=== PATIENT | male | born 1965 | race Caucasian/White ===

== ENCOUNTER → 2017-05-10 | Outpatient (CLI) | payer MEDICARE, OTHER ==
[~2017-05-10] MED LIST: AMLO5 PO; ASPI81CH PO; Bupropion Xl150 MG PO; COMPAZINE10 MG PO; FISH OIL 1,2001 EACH PO; FURO40 PO; GLYXAMBI 10 MG1 EACH PO; Hair, Skin & N1 EACH PO; INSU100I6; INSULANPEN; INSULANPEN SC; LISI20 PO; Omeprazole20 M1; POTCHL10ER PO; Prozac20 MG PO; Roxicodone5 MG PO; Vitamin D2000 UNIT PO; Zofran Odt4 MG SL
[2017-05-10 18:34] LABS: Protein, Urine Quantitative 218.6 mg/dL (0.0-11.9)
== END | disposition home or self-care (01) ==
LOC: LAB 14:14
PROVIDERS: Internal Medicine Nephrology
DX: N18.3 Chronic kidney disease, stage 3 (moderate) (principal); D63.1 Anemia in chronic kidney disease; N25.81 Secondary hyperparathyroidism of renal origin; E55.9 Vitamin D deficiency, unspecified; E78.00 Pure hypercholesterolemia, unspecified; D51.8 Other vitamin B12 deficiency anemias; D52.8 Other folate deficiency anemias; D50.9 Iron deficiency anemia, unspecified; R76.9 Abnormal immunological finding in serum, unspecified; R94.5 Abnormal results of liver function studies; R94.6 Abnormal results of thyroid function studies
CPT/HCPCS: 81050; 82043; 84156

== ENCOUNTER → 2017-07-28 | Outpatient (CLI) | payer MEDICARE, OTHER ==
[2017-07-28 15:32] LABS: Protein, Urine Quantitative 126.8 mg/dL (0.0-11.9)
[2017-07-28 15:34] LABS: Creatinine, Urine Random 52.1 mg/dL (27.00-270.00)
== END ==
LOC: LAB 14:39 → LAB SHORT 14:39
PROVIDERS: Internal Medicine Nephrology
DX: N18.3 Chronic kidney disease, stage 3 (moderate) (principal); D63.1 Anemia in chronic kidney disease; N25.81 Secondary hyperparathyroidism of renal origin; E55.9 Vitamin D deficiency, unspecified; E78.00 Pure hypercholesterolemia, unspecified
CPT/HCPCS: 81050; 82043; 82570; 84156

== ENCOUNTER 2017-08-14 13:49 | Emergency (ER) | payer MEDICARE, OTHER ==
[~2017-08-14] VITALS: Ht 177.8 cm; Wt 117.0 kg
[2017-08-14 14:52] LABS: BASOPHILS ABSOLUTE AUTO 0.03 K/mm3 (0.00-0.23); BASOPHILS PERCENT AUTO 0 % (0-2); EOSINOPHILS ABSOLUTE AUTO 0.01 K/mm3 (0.00-0.68); EOSINOPHILS PERCENT AUTO 0 % (0-6); Hematocrit 37.6 % (37.0-53.0); Hemoglobin 12.8 g/dL (13.5-17.5); IMMATURE GRAN ABSOLUTE AUTO 0.03 K/mm3 (0.00-0.10); IMMATURE GRAN PERCENT AUTO 0 % (0-1); LYMPHOCYTES ABSOLUTE AUTO 0.59 K/mm3 (0.84-5.20); LYMPHOCYTES PERCENT AUTO 6 % (21-46); MONOCYTES ABSOLUTE AUTO 0.92 K/mm3 (0.16-1.47); MONOCYTES PERCENT AUTO 9 % (4-13); Mean Corpuscular HGB 29.8 pg (26.0-34.0); Mean Corpuscular Volume 87 fL (80-100); Mean Platelet Volume 11.3 fL (9.1-12.4); NEUTROPHILS PERCENT AUTO 84 % (41-73); Platelet Count 105 K/mm3 (150-400); RDW Coefficient Variation 13.3 % (11.7-14.2); RDW Standard Deviation 42.7 fL (35.1-46.3); White Blood Cell Count 9.98 K/mm3 (4.00-11.30)
[2017-08-14 15:05] LABS: Albumin/Globulin Ratio 0.8 (0.8-1.8); Bilirubin, Total 6.6 mg/dL (0.1-1.0); Bun/Creatinine Ratio 15.5 (12.0-20.0); Calcium, Blood 9.3 mg/dL (8.5-10.1); Creatinine, Blood 2.13 mg/dL (0.60-1.20); Globulin, Blood 3.7 g/dL (2.2-4.0); Potassium, Blood 4.8 mmol/L (3.5-5.5); Total Protein, Blood 6.7 g/dL (6.4-8.2)
[2017-08-14 15:21] LABS: International Normalized Ratio 1.35; Prothrombin Time Results 13.7 Sec (9.7-11.5)
[2017-08-14 15:51] LABS: Source, Urine Clean Catch
[2017-08-14 15:54] LABS: Appearance, Urine Clear (Clear); Blood, Urine 1+ (Neg); Color, Urine Yellow (P-Yellow); Glucose Qualitative, Urine 4+ (Neg); Ketones, Urine Neg (Neg); Leukocyte Esterase, Urine Neg (Neg); Nitrite, Urine Neg (Neg); Protein, Urine 3+ (Neg); Urobilinogen, Urine 1+ (Normal)
[2017-08-14 16:19] LABS: Bilirubin, Urine 1+ (Neg)
[2017-08-14 16:20] LABS: Bacteria Rare /hpf; Squamous Epithelial Cells Rare /hpf (Few); White Blood Cells, Urine 0-2 /hpf (0-5)
[2017-08-14] MEDS ORDERED: Bupropion Xl150 MG PO (19:26)
[2017-08-14] MEDS ORDERED: INSU100I6 (19:26)
[2017-08-14] MEDS ORDERED: INSULANPEN (19:26)
[2017-08-14] MEDS ORDERED: LISI20 PO (19:26)
== END 2017-08-14 19:29 | disposition short-term general hospital (02) ==
LOC: ER 13:49
PROVIDERS: Emergency Medicine; Physician Assistant
DX: A41.9 Sepsis, unspecified organism (principal); K83.1 Obstruction of bile duct; E11.65 Type 2 diabetes mellitus with hyperglycemia; R79.89 Other specified abnormal findings of blood chemistry
CPT/HCPCS: 36415; 74176; 76705; 80053; 81001; 83605; 83690; 85025; 85610; 93005; 93010; 96361; 96365; 96375; 96376; 99285; J2405; J2543; J3010; J7030

== ENCOUNTER 2017-10-17 08:02 | Day surgery (SDC) | payer MEDICARE, OTHER ==
[~2017-10-17 08:02] MED LIST changes: -AMLO5 PO; -ASPI81CH PO; -COMPAZINE10 MG PO; -FISH OIL 1,2001 EACH PO; -FURO40 PO; -GLYXAMBI 10 MG1 EACH PO; -Hair, Skin & N1 EACH PO; -INSULANPEN SC; -Omeprazole20 M1; -POTCHL10ER PO; -Prozac20 MG PO; -Roxicodone5 MG PO; -Vitamin D2000 UNIT PO; -Zofran Odt4 MG SL
[2017-10-17 15:26] LABS: Performing Lab SYMBIODX; Test Name KIDNEY BX
== END 2017-10-17 22:40 | disposition home or self-care (01) ==
LOC: CT 08:02 → MEDS 10:36 → CT 22:40
PROVIDERS: Internal Medicine Nephrology
PROC: 0TB03ZX Excision of Right Kidney, Percutaneous Approach, Diagnostic (ICD-10-PCS; principal; 2017-10-17)
PROC: BT21ZZZ Computerized Tomography (CT Scan) of Right Kidney (ICD-10-PCS; principal; 2017-10-17)
DX: R80.9 Proteinuria, unspecified (principal); I12.9 Hypertensive chronic kidney disease with stage 1 through stage 4 chronic kidney disease, or unspecified chronic kidney disease; E11.22 Type 2 diabetes mellitus with diabetic chronic kidney disease; N18.3 Chronic kidney disease, stage 3 (moderate)
CPT/HCPCS: 50200; 77012; 82947; 88329

== ENCOUNTER → 2018-10-13 | Outpatient (CLI) | payer MEDICARE, OTHER ==
[~2018-10-13] MED LIST changes: +AMLO5 PO; +ASPI81CH PO; +COMPAZINE10 MG PO; +FISH OIL 1,2001 EACH PO; +FURO40 PO; +GLYXAMBI 10 MG1 EACH PO; +Hair, Skin & N1 EACH PO; +INSULANPEN SC; +Omeprazole20 M1; +POTCHL10ER PO; +Prozac20 MG PO; +Roxicodone5 MG PO; +Vitamin D2000 UNIT PO; +Zofran Odt4 MG SL
[2018-10-13 15:23] LABS: Microalb/Creat Ratio UR, Rand 2076.19 mg/g (0.000-30.000)
== END | disposition home or self-care (01) ==
LOC: LAB 07:26 → LAB SHORT 07:26 → LAB FUT 11-11 13:00
PROVIDERS: Internal Medicine Endocrinology, Diabetes & Metabolism
DX: E11.65 Type 2 diabetes mellitus with hyperglycemia (principal)
CPT/HCPCS: 82043; 82570

== ENCOUNTER 2019-11-04 18:04 | Emergency (ER) | payer MEDICARE, OTHER ==
[~2019-11-04] VITALS: Ht 177.8 cm; Wt 99.8 kg
== END 2019-11-04 18:38 | disposition home or self-care (01) ==
LOC: ER 18:04
DX: M79.631 Pain in right forearm (principal); E11.22 Type 2 diabetes mellitus with diabetic chronic kidney disease; I12.9 Hypertensive chronic kidney disease with stage 1 through stage 4 chronic kidney disease, or unspecified chronic kidney disease; N18.9 Chronic kidney disease, unspecified; F41.9 Anxiety disorder, unspecified; Z79.4 Long term (current) use of insulin; Z79.82 Long term (current) use of aspirin; Z79.899 Other long term (current) drug therapy
CPT/HCPCS: 29105; 99282-25

== ENCOUNTER → 2023-04-07 | Outpatient (CLI) | payer MEDICARE ==
[2023-04-07 19:59] LABS: Protein, Urine Random 83.5 mg/dL (0.0-11.9); Protein/Creat Ratio, Ur Random 1.6
== END ==
LOC: LAB 06:59 → LAB SHORT 06:59
PROVIDERS: Hospitalist
DX: E87.5 Hyperkalemia (principal); I12.9 Hypertensive chronic kidney disease with stage 1 through stage 4 chronic kidney disease, or unspecified chronic kidney disease
CPT/HCPCS: 82570; 84156

== ENCOUNTER 2023-10-17 15:09 | Emergency (ER) | payer MEDICARE, OTHER ==
[~2023-10-17] VITALS: Ht 177.8 cm; Wt 77.1 kg
[~2023-10-17 15:09] MED LIST changes: +ACYC400 PO; +ALLO100 PO; +ASPIR 8181 M1 PO; +BUPROPION XL450 MG PO; +CYCL25 PO; +FLUDROCORTISON0.1 M1 PO; +GABA400 PO; +GEMF600 PO; +INSULANI; +MAGNESIUM OXID500 MG PO; +MIDO5 PO; +MYCO250 PO; +NOVOLOG FL100 UNIT/3 SC; +OMEP20ER PO; +PERTZYE DR 24,1 EACH PO; +PRED5 PO; +PREVYMIS PO; +Prozac40 MG PO; +SULTRIDS PO; +[UNRECOGNIZED DRUG - CODE]
[2023-10-17] MEDS ORDERED: Lactated Ringer's 1,000 ML IV SCH (16:10)
[2023-10-17 16:21] LABS: Hematocrit 23.2 % (37.0-53.0); Hemoglobin 7.9 g/dL (13.5-17.5); Mean Corpuscular HGB 30.3 pg (26.0-34.0); Mean Corpuscular HGB Conc 34.1 g/dL (31.5-36.5); Mean Corpuscular Volume 89 fL (80-100); Mean Platelet Volume 9.7 fL (9.1-12.4); RDW Coefficient Variation 17.2 % (11.7-14.2); RDW Standard Deviation 49.7 fL (35.1-46.3); Red Blood Cell Count 2.61 M/mm3 (4.30-5.90); White Blood Cell Count 1.93 K/mm3 (4.00-11.30)
[2023-10-17 16:36] LABS: Albumin, Blood 2.2 g/dL (3.4-5.0); Albumin/Globulin Ratio 0.6 (0.8-1.8); Bilirubin, Total 0.9 mg/dL (0.1-1.0); Bun/Creatinine Ratio 16.8 (12.0-20.0); Calcium, Blood 8.7 mg/dL (8.5-10.1); Creatinine, Blood 1.96 mg/dL (0.60-1.20); Globulin, Blood 3.6 g/dL (2.2-4.0); Phosphorus, Blood 3.1 mg/dL (2.5-4.9); Total Protein, Blood 5.8 g/dL (6.4-8.2)
[2023-10-17 16:37] LABS: Platelet Count 36 K/mm3 (150-400)
[2023-10-17 16:45] LABS: BAND PERCENT MAN 6 % (0-8); BASOPHILS PERCENT MAN 0 % (0-2); EOSINOPHILS ABSOLUTE MAN 0.03 K/mm3 (0.00-0.68); EOSINOPHILS PERCENT MAN 2 % (0-6); LYMPHOCYTES % ATYPICAL MANUAL 2 % (0-0); LYMPHOCYTES ABSOLUTE MAN 0.38 K/mm3 (0.84-5.20); LYMPHOCYTES PERCENT MAN 18 % (21-46); MONOCYTES PERCENT MAN 16 % (4-13); NEUTROPHILS ABSOLUTE MAN 1.19 K/mm3 (1.96-9.15); SEG NEUTROPHILS PERCENT MAN 56 % (41-73); TOTAL CELLS COUNTED 50
[2023-10-17] MEDS ORDERED: GABAPENTIN600 MG PO (16:53)
[2023-10-17] MEDS ORDERED: MIDO5 PO (16:55)
[2023-10-17] MEDS ORDERED: MULVITA PO (16:57)
[2023-10-17 16:58] LABS: International Normalized Ratio 1.29; Prothrombin Time Results 13.5 Sec (9.7-11.5)
[2023-10-17] MEDS ORDERED: BASAGLAR K100 UNIT/3 SC (16:58)
[2023-10-17] MEDS ORDERED: Potassium Chloride 20 MEQ TabCR PO ONE (17:25)
[2023-10-17 22:30] VITALS: BP 133/85
[2023-10-17 22:34] LABS: Source, Urine Clean Catch
[2023-10-17 22:36] LABS: Bilirubin, Urine Neg (Neg); Blood, Urine Neg (Neg); Glucose Qualitative, Urine Neg (Neg); Ketones, Urine Neg (Neg); Leukocyte Esterase, Urine Neg (Neg); Nitrite, Urine Neg (Neg); Protein, Urine 3+ (Neg); Specific Gravity, Urine 1.015 (1.003-1.022); Urobilinogen, Urine NORM (Normal)
[2023-10-17 23:02] LABS: Appearance, Urine Clear (Clear); Color, Urine Yellow (P-Yellow)
[2023-10-17 23:04] LABS: Amorphous Light (0-Heavy); Bacteria Not Seen /hpf; Red Blood Cells, Urine 0-2 /hpf (0-2); Squamous Epithelial Cells Not Seen /hpf (Few); White Blood Cells, Urine 0-2 /hpf (0-5)
== END 2023-10-17 23:00 | disposition home or self-care (01) ==
LOC: ER 15:09
PROVIDERS: Physician Assistant
DX: Z48.23 Encounter for aftercare following liver transplant (principal); D61.818 Other pancytopenia; E11.9 Type 2 diabetes mellitus without complications; R19.7 Diarrhea, unspecified; D89.9 Disorder involving the immune mechanism, unspecified; R82.90 Unspecified abnormal findings in urine; Z85.05 Personal history of malignant neoplasm of liver; Z79.899 Other long term (current) drug therapy; Z79.82 Long term (current) use of aspirin; Z79.4 Long term (current) use of insulin; Z94.0 Kidney transplant status
CPT/HCPCS: 36415; 71045; 80053; 80158; 81001; 82105; 82248; 82570; 83605; 83690; 83735; 84100; 84156; 84550; 85025; 85610; 85730; 93005; 93010; 96360; 99285-25; A9270; G0480; J7120

== ENCOUNTER 2023-10-21 03:05 | Day surgery (SDC) | payer MEDICARE, OTHER ==
[~2023-10-21 03:05] MED LIST changes: +BASAGLAR K100 UNIT/3 SC; +GABAPENTIN600 MG PO; +MULVITA PO
[2023-10-21] MEDS ORDERED: Loratadine 10 MG Tab PO ONE (07:10)
[2023-10-21] MEDS ORDERED: NS 250 ML IV SCH (07:10)
[2023-10-21] MEDS ORDERED: DiphenhydrAMINE HCl 50 MG Cap PO PRN (07:10)
[2023-10-21] MEDS ORDERED: Acetaminophen 500 MG Tab PO PRN (07:10)
[2023-10-21 07:43] VITALS: BP 123/72
[2023-10-21 07:50] VITALS: BP 123/72
[2023-10-21 08:25] VITALS: BP 122/70
[2023-10-21 09:27] VITALS: BP 156/82
[2023-10-21 10:30] VITALS: BP 152/89
== END 2023-10-21 10:35 | disposition home or self-care (01) ==
LOC: ATC 03:05
DX: I12.9 Hypertensive chronic kidney disease with stage 1 through stage 4 chronic kidney disease, or unspecified chronic kidney disease (principal); E11.22 Type 2 diabetes mellitus with diabetic chronic kidney disease; N18.9 Chronic kidney disease, unspecified; D63.1 Anemia in chronic kidney disease; I95.1 Orthostatic hypotension; R53.1 Weakness; Z94.0 Kidney transplant status; Z94.4 Liver transplant status; E11.21 Type 2 diabetes mellitus with diabetic nephropathy; Z79.4 Long term (current) use of insulin; Z79.899 Other long term (current) drug therapy
CPT/HCPCS: 36415; 36430; 86850; 86900; 86901; 86923; A9270; J7050; P9016

== ENCOUNTER 2023-12-20 04:42 | Day surgery (SDC) | payer MEDICARE, OTHER ==
[~2023-12-20 04:42] MED LIST changes: +Magnesium Sul 4 GM/Water100 ML 100 ML IV SCH
[2023-12-20 13:19] VITALS: BP 144/105
== END 2023-12-20 15:30 | disposition home or self-care (01) ==
LOC: ATC 04:42
DX: Z48.23 Encounter for aftercare following liver transplant (principal); Z48.22 Encounter for aftercare following kidney transplant; D89.9 Disorder involving the immune mechanism, unspecified; E11.9 Type 2 diabetes mellitus without complications; D63.8 Anemia in other chronic diseases classified elsewhere; Z94.0 Kidney transplant status; Z94.4 Liver transplant status; Z79.4 Long term (current) use of insulin
CPT/HCPCS: 96365; 96366; J3475

== ENCOUNTER 2024-01-25 10:51 | Day surgery (SDC) | payer MEDICARE, OTHER ==
[~2024-01-25] VITALS: Ht 175.3 cm; Wt 79.0 kg
[~2024-01-25 10:51] MED LIST changes: -Magnesium Sul 4 GM/Water100 ML 100 ML IV SCH; +NS 500 ML IV SCH
[2024-01-25] MEDS ORDERED: EpiNEPhrine 1 MG/1 ML 1ML Vial ONE (11:07)
[2024-01-25] MEDS ORDERED: Lidocaine 2% Jelly Uro-Jet ONE (11:08)
[2024-01-25] MEDS ORDERED: Lidocaine 2% 5 ML SDV ONE (11:09)
[2024-01-25] MEDS ORDERED: Phenylephrine 0.5% Nasal Spray/Drops 15 ML ONE (11:10)
[2024-01-25 11:15] VITALS: BP 225/110
[2024-01-25 11:20] VITALS: BP 200/111
[2024-01-25 11:25] VITALS: BP 194/120
[2024-01-25 11:45] VITALS: BP 204/108
[2024-01-25 12:02] VITALS: BP 193/111
--- NOTE | 2024-01-25 12:07 | NUR ---
DR OLIVEIRA CANCELLING PROCEDURE DUE TO HYPERTENSIVE CRISIS. PATIENT NOT ON ANY BP MEDICATIONS. PATIENT IS S/P LIVER AND KIDNEY TRANSPLANT 06/2023. RECOMMENDS TO FOLLOW UP WITH [facility]. LAB DRAW RESULTS PENDING. WILL DISCHARGE PATIENT TO HOME WITH .
[2024-01-25 12:21] LABS: Albumin, Blood 2.8 g/dL (3.4-5.0); Albumin/Globulin Ratio 0.8 (0.8-1.8); Bilirubin, Total 0.6 mg/dL (0.1-1.0); Bun/Creatinine Ratio 17.6 (12.0-20.0); Calcium, Blood 8.9 mg/dL (8.5-10.1); Creatinine, Blood 1.87 mg/dL (0.60-1.20); Globulin, Blood 3.7 g/dL (2.2-4.0); Magnesium, Blood 1.4 mg/dL (1.6-2.4); Potassium, Blood 4.1 mmol/L (3.5-5.5); Total Protein, Blood 6.5 g/dL (6.4-8.2)
--- NOTE | 2024-01-27 14:38 | NUR ---
LATE ENTRY DR OLIVEIRA INFORMED PATIENT TO FOLLOW UP WITH [facility] OR OUR EMERGENCY ROOM HERE AT [facility] TO HAVE ELEVATED BLOOD PRESSURE TO BE CHECKED OUT. PER , SHE WAS NOT GOING TO GO TO ER AND WILL FOLLOW UP WITH TRANSPLANT TEAM.
== END 2024-01-25 23:07 | disposition home or self-care (01) ==
LOC: ORSCMMR 10:51 → ORD 13:00 → ORSCMMR 23:07
PROVIDERS: Student in an Organized Health Care Education/Training Program
DX: J18.9 Pneumonia, unspecified organism (principal); Z53.9 Procedure and treatment not carried out, unspecified reason
CPT/HCPCS: 80053; 83735; A9270; J0171; J7040

== ENCOUNTER 2024-02-13 10:35 | Day surgery (SDC) | payer MEDICARE, OTHER ==
[~2024-02-13] VITALS: Ht 175.3 cm; Wt 82.1 kg
[2024-02-13] VITALS (11 sets, daily range): BP systolic 137–182; BP diastolic 88–107
[~2024-02-13 10:35] MED LIST changes: -NS 500 ML IV SCH; +propofoL 100 ML IV ONE
[2024-02-13] MEDS ORDERED: Lidocaine HCl 4% 5 ML SDA ONE (10:52)
[2024-02-13] MEDS ORDERED: Lidocaine 2% 5 ML SDV ONE (11:15)
[2024-02-13] MEDS ORDERED: Lidocaine 2% Jelly Uro-Jet ONE (11:15)
[2024-02-13] MEDS ORDERED: EpiNEPhrine 1 MG/1 ML 1ML Vial ONE (11:15)
[2024-02-13] MEDS ORDERED: Ipratropium/Albuterol SulF 2.5-0.5MG/3 ML Amp INH ONE (11:25)
[2024-02-13] MEDS ORDERED: Lactated Ringer's 1,000 ML IV SCH (11:25)
[2024-02-13] MEDS ORDERED: POTA8 PO (11:37)
[2024-02-13 12:04] LABS: BASOPHILS ABSOLUTE AUTO 0.03 K/mm3 (0.00-0.23); BASOPHILS PERCENT AUTO 1 % (0-2); EOSINOPHILS ABSOLUTE AUTO 0.11 K/mm3 (0.00-0.68); EOSINOPHILS PERCENT AUTO 2 % (0-6); Hematocrit 29.2 % (37.0-53.0); Hemoglobin 9.9 g/dL (13.5-17.5); IMMATURE GRAN ABSOLUTE AUTO 0.02 K/mm3 (0.00-0.10); IMMATURE GRAN PERCENT AUTO 0 % (0-1); LYMPHOCYTES ABSOLUTE AUTO 0.88 K/mm3 (0.84-5.20); LYMPHOCYTES PERCENT AUTO 17 % (21-46); MONOCYTES ABSOLUTE AUTO 0.52 K/mm3 (0.16-1.47); MONOCYTES PERCENT AUTO 10 % (4-13); Mean Corpuscular HGB 35.2 pg (26.0-34.0); Mean Corpuscular HGB Conc 33.9 g/dL (31.5-36.5); Mean Corpuscular Volume 104 fL (80-100); Mean Platelet Volume 10.1 fL (9.1-12.4); NEUTROPHILS ABSOLUTE AUTO 3.63 K/mm3 (1.96-9.15); NEUTROPHILS PERCENT AUTO 70 % (41-73); Platelet Count 66 K/mm3 (150-400); RDW Coefficient Variation 14.3 % (11.7-14.2); RDW Standard Deviation 53.1 fL (35.1-46.3); Red Blood Cell Count 2.81 M/mm3 (4.30-5.90); White Blood Cell Count 5.19 K/mm3 (4.00-11.30)
[2024-02-13 12:16] LABS: International Normalized Ratio 0.98; Prothrombin Time Results 10.5 Sec (9.7-11.5)
[2024-02-13] MEDS ORDERED: Rocuronium Bromide 10 MG/ML 5ML Injection IV ONE (12:23)
[2024-02-13] MEDS ORDERED: Sugammadex Sodium 200 MG/2ML SDV (100 MG/ML) ONE (12:23)
[2024-02-13 12:28] LABS: Albumin, Blood 2.7 g/dL (3.4-5.0); Albumin/Globulin Ratio 0.8 (0.8-1.8); Bilirubin, Total 0.8 mg/dL (0.1-1.0); Bun/Creatinine Ratio 15.1 (12.0-20.0); Calcium, Blood 8.9 mg/dL (8.5-10.1); Creatinine, Blood 2.91 mg/dL (0.60-1.20); Globulin, Blood 3.2 g/dL (2.2-4.0); Magnesium, Blood 1.5 mg/dL (1.6-2.4); Phosphorus, Blood 3.2 mg/dL (2.5-4.9); Potassium, Blood 3.7 mmol/L (3.5-5.5); Total Protein, Blood 5.9 g/dL (6.4-8.2)
[2024-02-13] MEDS ORDERED: Magnesium Sulf 2 GM/Water 50ML 50 ML IV ONE (12:50)
[2024-02-13] MEDS ORDERED: Phenylephrine HCl 100 MCG/ML-NS 10MLSYR (1MG/10ML) ONE (13:11)
--- NOTE | 2024-02-13 13:16 | NUR ---
02/13/24 1316 Niecy Henriquez SEE ANESTHESIA RECORD FOR SEDATION. PT TAKEN TO OR 1 FOR PROCEDURE. PT INTUBATED PRIOR TO PROCEDURE.
--- NOTE | 2024-02-13 15:22 | NUR ---
DISCHARGE NOTE PT A&OX4, NO COMPLAINTS, AT BEDSIDE. CHEST XRAY DONE AT BEDSIDE AND WAS READ AT BEDSIDE BY DR OLIVEIRA. [place], MULTIFOCAL BUTTON GENERATOR GAVE PT EDUCATION ON FLUTTER VALVE . PT COUGHING INFREQUENTLY, NO SPUTUM. PT REMAINED NPO THROUGHOUT DSU STAY AND WAS INSTRUCTED TO CAREFULLY TRY PO FLUIDS AFTER 2 HOURS POST PROCEDURE. FURTHER INSTRUCTION WAS GIVEN ON HOW TO CHECK GAG REFLEX PRIOR TO TRYING PO FLUIDS. Discharge instructions reviewed with patient. Patient verbalizes understanding. Copy given to patient to take home.PT UP TO W/C SLIGHTLY UNSTEADY. INSTRUCTIONS GIVEN ON SAFE TRANSFERRING AT HOME. Discharged via wheelchair to private car for ride home.VSS.
[2024-02-16 00:38] LABS: CYTOMEGALOVIRUS BY QUAL PCR Detected; CYTOMEGALOVIRUS SOURCE BAL
== END 2024-02-13 15:15 | disposition home or self-care (01) ==
LOC: ORSCMMR 10:35 → ORD 12:00 → ORSCMMR 15:15
PROVIDERS: Student in an Organized Health Care Education/Training Program
PROC: 0BD68ZX Extraction of Right Lower Lobe Bronchus, Via Natural or Artificial Opening Endoscopic, Diagnostic (ICD-10-PCS; principal; 2024-02-13 12:00)
PROC: 0B9F8ZX Drainage of Right Lower Lung Lobe, Via Natural or Artificial Opening Endoscopic, Diagnostic (ICD-10-PCS; principal; 2024-02-13 12:00)
PROC: 0B9J8ZX Drainage of Left Lower Lung Lobe, Via Natural or Artificial Opening Endoscopic, Diagnostic (ICD-10-PCS; principal; 2024-02-13 12:00)
DX: J18.9 Pneumonia, unspecified organism (principal); D84.9 Immunodeficiency, unspecified; Z94.0 Kidney transplant status; Z94.4 Liver transplant status; I25.10 Atherosclerotic heart disease of native coronary artery without angina pectoris; J44.9 Chronic obstructive pulmonary disease, unspecified; Z87.891 Personal history of nicotine dependence; G47.33 Obstructive sleep apnea (adult) (pediatric); K21.9 Gastro-esophageal reflux disease without esophagitis; F31.9 Bipolar disorder, unspecified; Z79.4 Long term (current) use of insulin; Z79.82 Long term (current) use of aspirin; E11.29 Type 2 diabetes mellitus with other diabetic kidney complication; E11.22 Type 2 diabetes mellitus with diabetic chronic kidney disease; I12.9 Hypertensive chronic kidney disease with stage 1 through stage 4 chronic kidney disease, or unspecified chronic kidney disease; N18.30 Chronic kidney disease, stage 3 unspecified; Z79.899 Other long term (current) drug therapy
CPT/HCPCS: 36415; 71045; 80053; 80158; 82248; 82947; 83735; 84100; 84550; 85025; 85610; 87070; 87077; 87102; 87116; 87186; 87205; 87496; 87497; 88108; 88312; 93005; 93010; 94664; 94760; J0171; J2003; J2371; J2704; J3475; J7120

== ENCOUNTER 2024-06-26 11:55 | Observation (INO) | payer OTHER, MEDICARE ==
[~2024-06-26] VITALS: Ht 177.8 cm; Wt 87.5 kg
[~2024-06-26 11:55] MED LIST changes: -ALLO100 PO; -BASAGLAR K100 UNIT/3 SC; +BUPROPION XL150 M1 PO; -BUPROPION XL450 MG PO; -CYCL25 PO; +FLUOXETINE HCL60 MG PO; +HUMULIN N100 UNIT/3 SC; +POTA8 PO; -PRED5 PO; -Prozac40 MG PO; -propofoL 100 ML IV ONE
[2024-06-26 12:50] LABS: BASOPHILS ABSOLUTE AUTO 0.06 K/mm3 (0.00-0.23); BASOPHILS PERCENT AUTO 1 % (0-2); EOSINOPHILS ABSOLUTE AUTO 0.25 K/mm3 (0.00-0.68); EOSINOPHILS PERCENT AUTO 3 % (0-6); Hematocrit 29.8 % (37.0-53.0); Hemoglobin 9.9 g/dL (13.5-17.5); IMMATURE GRAN ABSOLUTE AUTO 0.17 K/mm3 (0.00-0.10); IMMATURE GRAN PERCENT AUTO 2 % (0-1); LYMPHOCYTES ABSOLUTE AUTO 1.77 K/mm3 (0.84-5.20); LYMPHOCYTES PERCENT AUTO 18 % (21-46); MONOCYTES ABSOLUTE AUTO 0.93 K/mm3 (0.16-1.47); MONOCYTES PERCENT AUTO 10 % (4-13); Mean Corpuscular HGB 31.8 pg (26.0-34.0); Mean Corpuscular HGB Conc 33.2 g/dL (31.5-36.5); Mean Corpuscular Volume 96 fL (80-100); Mean Platelet Volume 9.8 fL (9.1-12.4); NEUTROPHILS ABSOLUTE AUTO 6.59 K/mm3 (1.96-9.15); NEUTROPHILS PERCENT AUTO 68 % (41-73); Platelet Count 221 K/mm3 (150-400); RDW Coefficient Variation 14.1 % (11.7-14.2); RDW Standard Deviation 49.5 fL (35.1-46.3); Red Blood Cell Count 3.11 M/mm3 (4.30-5.90); White Blood Cell Count 9.77 K/mm3 (4.00-11.30)
[2024-06-26 13:49] LABS: Albumin, Blood 2.5 g/dL (3.4-5.0); Albumin/Globulin Ratio 0.7 (0.8-1.8); Bilirubin, Total 0.7 mg/dL (0.1-1.0); Calcium, Blood 8.8 mg/dL (8.5-10.1); Creatinine, Blood 3.32 mg/dL (0.60-1.20); Globulin, Blood 3.7 g/dL (2.2-4.0); Potassium, Blood 3.3 mmol/L (3.5-5.5); Total Protein, Blood 6.2 g/dL (6.4-8.2)
[2024-06-26] MEDS ORDERED: NS 1,000 ML IV SCH ×2 (15:20→16:55)
[2024-06-26 15:52] LABS: Source, Urine Clean Catch
[2024-06-26 15:56] LABS: Appearance, Urine Clear (Clear); Bilirubin, Urine Neg (Neg); Blood, Urine Neg (Neg); Color, Urine Yellow (P-Yellow); Glucose Qualitative, Urine 2+ (Neg); Ketones, Urine Neg (Neg); Leukocyte Esterase, Urine Neg (Neg); Nitrite, Urine Neg (Neg); Protein, Urine 3+ (Neg); Specific Gravity, Urine 1.015 (1.003-1.022); Urobilinogen, Urine NORM (Normal)
[2024-06-26 16:03] LABS: Red Blood Cells, Urine 0-2 /hpf (0-2); White Blood Cells, Urine 0-2 /hpf (0-5)
[2024-06-26 16:04] LABS: Bacteria Rare /hpf; Squamous Epithelial Cells Not Seen /hpf (Few)
[2024-06-26] MEDS ORDERED: Potassium Chloride 20 MEQ TabCR PO ONE (18:35)
[2024-06-26] MEDS ORDERED: CARV3.125 PO (19:48)
[2024-06-26] MEDS ORDERED: FURO20 PO (19:50)
[2024-06-26] MEDS ORDERED: LISI20 PO (19:51)
[2024-06-26] MEDS ORDERED: AMLO5 PO (19:52)
[2024-06-26] MEDS ORDERED: LOSA25 PO (19:52)
[2024-06-26 19:58] VITALS: BP 192/97
[2024-06-26] MEDS ORDERED: HydrALAZINE HCl 25 MG Tab PO ONE (20:20)
[2024-06-26] MEDS ORDERED: Carvedilol 3.125 MG Tab PO ONE (20:25)
[2024-06-26] MEDS ORDERED: Insulin Isoph 70 / Reg 30 100 Unit/ML 10ML Vial SC SCH (21:00)
[2024-06-26] MEDS ORDERED: Insulin Human Lispro 100 Units/ML 3ML Syringe SC SCH (21:00)
[2024-06-26] MEDS ORDERED: CYCLOSPORINE 25 MG PO SCH (21:00)
[2024-06-26] MEDS ORDERED: Mycophenolate Mofetil 250 MG Cap PO SCH (21:00)
[2024-06-26 23:56] VITALS: BP 153/93
[2024-06-27 04:48] VITALS: BP 166/91
[2024-06-27 04:59] LABS: Hematocrit 29.6 % (37.0-53.0); Hemoglobin 9.7 g/dL (13.5-17.5); Mean Corpuscular HGB 31.5 pg (26.0-34.0); Mean Corpuscular HGB Conc 32.8 g/dL (31.5-36.5); Mean Corpuscular Volume 96 fL (80-100); Mean Platelet Volume 10.1 fL (9.1-12.4); Platelet Count 216 K/mm3 (150-400); RDW Standard Deviation 49.4 fL (35.1-46.3); Red Blood Cell Count 3.08 M/mm3 (4.30-5.90); White Blood Cell Count 8.42 K/mm3 (4.00-11.30)
--- NOTE | 2024-06-27 05:02 | NUR ---
PT AOX4, IND IN THE ROOM, BUT STILL REQUESTED TO CALL IF NEEDED TO GET UP DUE TO SYNOPAL EPISODE. STATES HE FEELS MUCH BETTER AND MORE NORMAL POST FLUID GIVEN IN THE ED. WAS ABLE TO TRANSFER INTO BED FROM WHEELCHAIR WITHOUT ISSUE. PT BLOOD SUGARS WERE A BIT HIGH BUT STATES THAT FAMILY BROUGHT HIM BERMUDIAN FRIES. MEDICATED PER EMR. AWAITING NUKE MED STUDY IN THE AM. PT TOLERATING MEDICATIONS WELL AND ON NEUTROPENIC PRECAUTIONS CURRENTLY. SOME ELEVATED BP ON ADMISSION, MEDICATED PER EMR. PT IN BED RESTING, BED IN LOWEST POSITION, CALL LIGHT IN REACH. CONTINUING CARE.
[2024-06-27 05:33] LABS: Magnesium, Blood 1.8 mg/dL (1.6-2.4)
[2024-06-27 05:37] LABS: Albumin, Blood 2.5 g/dL (3.4-5.0); Albumin/Globulin Ratio 0.7 (0.8-1.8); Bilirubin, Total 0.7 mg/dL (0.1-1.0); Calcium, Blood 9.1 mg/dL (8.5-10.1); Creatinine, Blood 2.88 mg/dL (0.60-1.20); Globulin, Blood 3.6 g/dL (2.2-4.0); Potassium, Blood 3.7 mmol/L (3.5-5.5); Total Protein, Blood 6.1 g/dL (6.4-8.2)
[2024-06-27 07:28] VITALS: BP 174/96
[2024-06-27] MEDS ORDERED: Omeprazole 20 MG CapCR PO SCH (07:30)
[2024-06-27] MEDS ORDERED: Heparin Sodium,Porcine 5,000 UNIT/0.5 ML SDV SC SCH (08:00)
[2024-06-27] MEDS ORDERED: Insulin Isoph 70 / Reg 30 100 Unit/ML 10ML Vial SC SCH (09:00)
[2024-06-27] MEDS ORDERED: Aspirin 81 MG TabEC PO SCH (09:00)
[2024-06-27] MEDS ORDERED: PredniSONE 10 MG Tab PO SCH (09:00)
[2024-06-27] MEDS ORDERED: PERTZYE DR 24,1 EACH PO (15:27)
[2024-06-27 15:29] VITALS: BP 147/92
[2024-06-27] MEDS ORDERED: Amylase/Lipase/Protease DR Cap 12,000 PO PRN (15:30)
[2024-06-27] MEDS ORDERED: [UNRECOGNIZED DRUG - OTHER] PO (16:15)
[2024-06-27] MEDS ORDERED: Prednisone10 MG PO (16:16)
[2024-06-27] MEDS ORDERED: ALLO100 PO (16:16)
[2024-06-27] MEDS ORDERED: HUMULIN N100 UNIT/3 SC (16:17)
[2024-06-27] MEDS ORDERED: B-121000 MC3 PO (16:18)
--- NOTE | 2024-06-27 16:58 | NUR ---
PATIENT DC'D TO HOME WITH SPOUSE. DC INSTRUCTIONS AND EDUCATION DISCUSSED WITH PATIENT AND COPY PROVIDED. PATIENT DENIES ANY FURTHER QUESTIONS OR CONCERNS. NO NEW RX MEDICATIONS.
[2024-06-27] MEDS ORDERED: Carvedilol 3.125 MG Tab PO SCH (17:00)
[2024-06-27] MEDS ORDERED: Amylase/Lipase/Protease DR Cap 12,000 PO SCH (17:30)
[2024-06-27] MEDS ORDERED: Magnesium Oxide 400 MG Tab PO SCH (21:00)
[2024-06-28] MEDS ORDERED: BuPROPion HCl 100 MG Tab PO SCH (09:00)
[2024-06-28] MEDS ORDERED: AmLODIPine Besylate 5 MG Tab PO SCH (09:00)
[2024-06-28] MEDS ORDERED: FLUoxetine HCL 20 MG CAP PO SCH (09:00)
== END 2024-06-27 17:00 | disposition home or self-care (01) ==
LOC: ER 11:55 → MEDS 18:00
PROVIDERS: Nurse Practitioner Acute Care; Student in an Organized Health Care Education/Training Program; ADMIT Student in an Organized Health Care Education/Training Program
DX: R55 Syncope and collapse (principal); E87.6 Hypokalemia; E11.9 Type 2 diabetes mellitus without complications; K86.1 Other chronic pancreatitis; K21.9 Gastro-esophageal reflux disease without esophagitis; F32.A Depression, unspecified; Z79.82 Long term (current) use of aspirin; Z79.899 Other long term (current) drug therapy; Z88.8 Allergy status to other drugs, medicaments and biological substances
CPT/HCPCS: 70551; 71045; 78580; 80053; 81001; 82947; 83735; 83880; 84484; 85025; 85027; 85379; 93005; 93010; 96360; 96372; 99285-25; A9270; A9540; G0378; J1644; J1815; J7030; J7512; J7515; J7517

== ENCOUNTER 2024-11-16 23:12 | Inpatient (IN) | payer OTHER, MEDICARE ==
[~2024-11-16] VITALS: Ht 177.8 cm; Wt 92.0 kg
[~2024-11-16 23:12] MED LIST changes: +ALLO100 PO; +B-121000 MC3 PO; +CARV3.125 PO; +FURO20 PO; +LOSA25 PO; +Potassium Chlo20 ME1 PO; +Prednisone10 MG PO; +[UNRECOGNIZED DRUG - CODE] PO; +[UNRECOGNIZED DRUG - CODE] PO; +[UNRECOGNIZED DRUG - OTHER] PO
[2024-11-16] MEDS ORDERED: FentaNYL Citrate 50 MCG/ML 2 ML Injection ONE (23:41)
[2024-11-16] MEDS ORDERED: FentaNYL Citrate 50 MCG/ML 2 ML Injection IV ONE (23:45)
[2024-11-17] VITALS (43 sets, daily range): BP systolic 84–138; BP diastolic 56–84
[2024-11-17] MEDS ORDERED: FentaNYL Citrate 50 MCG/ML 2 ML Injection IV PRN (00:45)
[2024-11-17 00:54] LABS: BASOPHILS ABSOLUTE AUTO 0.01 K/mm3 (0.00-0.23); BASOPHILS PERCENT AUTO 0 % (0-2); EOSINOPHILS ABSOLUTE AUTO 0.00 K/mm3 (0.00-0.68); EOSINOPHILS PERCENT AUTO 0 % (0-6); Hematocrit 26.3 % (37.0-53.0); Hemoglobin 8.4 g/dL (13.5-17.5); IMMATURE GRAN ABSOLUTE AUTO 0.11 K/mm3 (0.00-0.10); IMMATURE GRAN PERCENT AUTO 1 % (0-1); LYMPHOCYTES ABSOLUTE AUTO 1.10 K/mm3 (0.84-5.20); LYMPHOCYTES PERCENT AUTO 6 % (21-46); MONOCYTES ABSOLUTE AUTO 1.17 K/mm3 (0.16-1.47); MONOCYTES PERCENT AUTO 7 % (4-13); Mean Corpuscular HGB Conc 31.9 g/dL (31.5-36.5); Mean Corpuscular Volume 87 fL (80-100); NEUTROPHILS ABSOLUTE AUTO 15.48 K/mm3 (1.96-9.15); NEUTROPHILS PERCENT AUTO 87 % (41-73); NRBC ABSOLUTE 0.00 K/mm3 (0.00-0.02); NRBC Auto 0.0 /100 WBC (0.0-0.2); Platelet Count 244 K/mm3 (150-400); RDW Coefficient Variation 15.8 % (11.7-14.2); RDW Standard Deviation 50.3 fL (35.1-46.3)
[2024-11-17 01:10] LABS: Magnesium, Blood 2.6 mg/dL (1.6-2.4)
[2024-11-17 01:12] LABS: Alanine Aminotransfer (ALT/SGP 20.0 U/L (12-78); Albumin, Blood 3.1 g/dL (3.4-5.0); Albumin/Globulin Ratio 0.8 (0.8-1.8); Anion Gap 16.0 mmol/L (3-11); Aspartate Aminotrans (AST/SGOT 28.0 U/L (12-37); Bilirubin, Total 0.9 mg/dL (0.1-1.0); Blood Urea Nitrogen 105.0 mg/dL (8-24); CO2, Blood 21.0 mmol/L (21-32); Calcium, Blood 8.9 mg/dL (8.5-10.1); Chloride, Blood 97.0 mmol/L (98-108); Creatinine, Blood 4.39 mg/dL (0.60-1.20); Globulin, Blood 3.7 g/dL (2.2-4.0); Glucose, Blood 643.0 mg/dL (70-99); Phosphorus, Blood 5.2 mg/dL (2.5-4.9); Potassium, Blood 5.5 mmol/L (3.5-5.5); Sodium, Blood 128.0 mmol/L (136-145); Total Protein, Blood 6.8 g/dL (6.4-8.2)
[2024-11-17] MEDS ORDERED: Cefepime HCl 2,000 MG in NS 100 ML IV ONE (01:55)
[2024-11-17] MEDS ORDERED: FURO40 PO (03:31)
[2024-11-17] MEDS ORDERED: GABA300 PO (03:31)
[2024-11-17] MEDS ORDERED: LAMO25 PO (03:32)
[2024-11-17] MEDS ORDERED: ZYRTEC10 M2 PO (03:33)
[2024-11-17] MEDS ORDERED: Insulin Human Lispro 100 Units/ML 3ML Syringe SC STA (03:56)
[2024-11-17] MEDS ORDERED: NS 1,000 ML IV SCH (04:00)
[2024-11-17 06:09] LABS: BASOPHILS ABSOLUTE AUTO 0.01 K/mm3 (0.00-0.23); BASOPHILS PERCENT AUTO 0 % (0-2); EOSINOPHILS ABSOLUTE AUTO 0.03 K/mm3 (0.00-0.68); EOSINOPHILS PERCENT AUTO 0 % (0-6); Hematocrit 26.4 % (37.0-53.0); Hemoglobin 8.2 g/dL (13.5-17.5); IMMATURE GRAN ABSOLUTE AUTO 0.08 K/mm3 (0.00-0.10); IMMATURE GRAN PERCENT AUTO 1 % (0-1); LYMPHOCYTES ABSOLUTE AUTO 1.19 K/mm3 (0.84-5.20); LYMPHOCYTES PERCENT AUTO 9 % (21-46); MONOCYTES ABSOLUTE AUTO 0.76 K/mm3 (0.16-1.47); MONOCYTES PERCENT AUTO 6 % (4-13); Mean Corpuscular HGB Conc 31.1 g/dL (31.5-36.5); Mean Corpuscular Volume 87 fL (80-100); NEUTROPHILS ABSOLUTE AUTO 10.58 K/mm3 (1.96-9.15); NEUTROPHILS PERCENT AUTO 84 % (41-73); NRBC ABSOLUTE 0.00 K/mm3 (0.00-0.02); NRBC Auto 0.0 /100 WBC (0.0-0.2); Platelet Count 209 K/mm3 (150-400); RDW Coefficient Variation 15.8 % (11.7-14.2); RDW Standard Deviation 50.4 fL (35.1-46.3)
[2024-11-17 06:36] LABS: Magnesium, Blood 2.8 mg/dL (1.6-2.4); Phosphorus, Blood 5.0 mg/dL (2.5-4.9)
[2024-11-17] MEDS ORDERED: Insulin Human Lispro 100 Units/ML 3ML Syringe SC SCH (07:30)
[2024-11-17] MEDS ORDERED: Insulin Isoph 70 / Reg 30 100 Unit/ML 10ML Vial SC SCH ×2 (07:30→16:30)
[2024-11-17] MEDS ORDERED: Amylase/Lipase/Protease DR 20,000 PO SCH (08:30)
[2024-11-17] MEDS ORDERED: CYCLOSPORINE 100 MG PO SCH (09:00)
[2024-11-17] MEDS ORDERED: CYCLOSPORINE 25 MG PO SCH (09:18)
[2024-11-17 09:24] LABS: Source, Urine Condom Cath
[2024-11-17 09:42] LABS: Bilirubin, Urine Neg (Neg); Color, Urine Yellow (P-Yellow); Glucose Qualitative, Urine 4+ (Neg); Ketones, Urine Neg (Neg); Leukocyte Esterase, Urine 1+ (Neg); Protein, Urine 3+ (Neg); Specific Gravity, Urine 1.020 (1.003-1.022); Urobilinogen, Urine NORM (Normal)
[2024-11-17 09:48] LABS: Red Blood Cells, Urine 0-2 /hpf (0-2)
[2024-11-17 10:22] LABS: Alanine Aminotransfer (ALT/SGP 17 U/L (12-78); Albumin, Blood 2.9 g/dL (3.4-5.0); Albumin/Globulin Ratio 0.9 (0.8-1.8); Anion Gap 13 mmol/L (3-11); Aspartate Aminotrans (AST/SGOT 17 U/L (12-37); Bilirubin, Total 0.8 mg/dL (0.1-1.0); Blood Urea Nitrogen 110 mg/dL (8-24); CO2, Blood 21 mmol/L (21-32); Calcium, Blood 8.5 mg/dL (8.5-10.1); Chloride, Blood 105 mmol/L (98-108); Creatinine, Blood 4.90 mg/dL (0.60-1.20); Globulin, Blood 3.1 g/dL (2.2-4.0); Glucose, Blood 203 mg/dL (70-99); Phosphorus, Blood 4.7 mg/dL (2.5-4.9); Potassium, Blood 4.9 mmol/L (3.5-5.5); Sodium, Blood 134 mmol/L (136-145); Total Protein, Blood 6.0 g/dL (6.4-8.2)
[2024-11-17] MEDS ORDERED: Furosemide 10 MG / ML 2ML Vial IV ONE (10:25)
[2024-11-17] MEDS ORDERED: Cefepime HCl 2,000 MG in NS 100 ML IV SCH (12:00)
--- NOTE | 2024-11-17 12:45 | NUR ---
ASSUMPTION OF CARE ASSUMED CARE OF PT FROM RIVETING MACHINE OPERATOR AUTOMATIC NURSE. PT IS ALERT AND ORIENTED AND IS AT BEDSIDE. PT IS ON 15L/OXIMASK AND SPO2 >95% HAS A THORAVENT IN THE RIGHT ANTERIOR CHEST WITH TRANSPARENT DRESSING. PT IS IN NORMAL SINUS RHYTHM WITH HR IN THE 70'S AND SBP IN THE 90'S. PT DENIES ANY ABD PAIN/DISCOMFORT. PT USING URINAL INDEPENDENTLY, COLLECTING YELLOW URINE. MINIMAL EDEMA IN THE BILAT ANKLES. HAS LEFT PIV SALINE LOCKED.
--- NOTE | 2024-11-17 18:37 | NUR ---
SHIFT SUMMARY PT REMAINS ALERT AND ORIENTED, ABLE TO COMMUNICATE APPROPRIATLEY, AND MAKES NEEDS KNOWN. PT THORAVENT REMOVED EARLIER TODAY BY DR OLIVEIRA. PT IS ON BIPAP AND ON 10-15L/ OXIMASK WHEN EATING. SPO2 >95% WHILE ON OXYGEN BUT QUICKLY DESATS IF BIPAP/OXIMASK REMOVED. MAP >65 WITH HR IN THE 60'S-80'S. PT IS INDEPENDENT WITH URINAL, DID NEED TO BE BLADDER SCANNED FOR POSSIBLE RETENTION BUT MANAGED TO VOID AFTERWARDS. NO BM TODAY. PT HAS BRUISING SCATTERED T/O BODY , HE STATES EASILY BRUISING SINCE HIS TRANSPLANTS EARLIER THIS YEAR. PT HAS A KATE POWERGLIDE AND A R ARM PIV, BOTH SALINE LOCKED. GIVEN PRN FENTANYL 1X AND OXYCODONE 1X FOR PAIN TODAY. HAS BEEN AT BEDSIDE T/O THE MORNING. WILL REPORT TO ONCOMING NIGHTSHIFT NURSE.
[2024-11-18] VITALS (30 sets, daily range): BP systolic 84–149; BP diastolic 54–106
[2024-11-18 05:11] LABS: BASOPHILS ABSOLUTE AUTO 0.01 K/mm3 (0.00-0.23); BASOPHILS PERCENT AUTO 0 % (0-2); EOSINOPHILS ABSOLUTE AUTO 0.00 K/mm3 (0.00-0.68); EOSINOPHILS PERCENT AUTO 0 % (0-6); Hematocrit 24.5 % (37.0-53.0); Hemoglobin 7.4 g/dL (13.5-17.5); IMMATURE GRAN ABSOLUTE AUTO 0.06 K/mm3 (0.00-0.10); IMMATURE GRAN PERCENT AUTO 1 % (0-1); LYMPHOCYTES ABSOLUTE AUTO 0.76 K/mm3 (0.84-5.20); LYMPHOCYTES PERCENT AUTO 10 % (21-46); MONOCYTES ABSOLUTE AUTO 0.22 K/mm3 (0.16-1.47); MONOCYTES PERCENT AUTO 3 % (4-13); Mean Corpuscular HGB Conc 30.2 g/dL (31.5-36.5); Mean Corpuscular Volume 89 fL (80-100); NEUTROPHILS ABSOLUTE AUTO 6.71 K/mm3 (1.96-9.15); NEUTROPHILS PERCENT AUTO 87 % (41-73); NRBC ABSOLUTE 0.00 K/mm3 (0.00-0.02); NRBC Auto 0.0 /100 WBC (0.0-0.2); Platelet Count 158 K/mm3 (150-400); RDW Coefficient Variation 15.7 % (11.7-14.2); RDW Standard Deviation 51.4 fL (35.1-46.3)
[2024-11-18 05:29] LABS: Albumin, Blood 2.7 g/dL (3.4-5.0); Anion Gap 13 mmol/L (3-11); Blood Urea Nitrogen 135 mg/dL (8-24); CO2, Blood 19 mmol/L (21-32); Calcium, Blood 8.1 mg/dL (8.5-10.1); Chloride, Blood 106 mmol/L (98-108); Creatinine, Blood 5.52 mg/dL (0.60-1.20); Glucose, Blood 341 mg/dL (70-99); Phosphorus, Blood 6.5 mg/dL (2.5-4.9); Potassium, Blood 5.9 mmol/L (3.5-5.5); Sodium, Blood 132 mmol/L (136-145)
[2024-11-18] MEDS ORDERED: Sodium Bicarb 8.4% Inj 150 MEQ in Dextrose 5% 1,000 ML IV SCH (06:00)
[2024-11-18] MEDS ORDERED: Insulin Regular 100 UNIT/ML 10ML Vial IV ONE (06:05)
[2024-11-18] MEDS ORDERED: Albuterol 2.5 MG/3 ML VIAL INH ONE (06:05)
--- NOTE | 2024-11-18 06:42 | NUR ---
SHIFT SUMMARY A/O X4, AWAKE PERIODICALLY T/O NIGHT, ON BIPAP, TOLERATING WELL, DENIED SOB DURING NIGHT WHILE ON BIPAP. AM LABS REPORTED TO DR OLIVEIRA, ORDERS RECEIVED FOR ABNORMAL CHEMISTRY RESULTS, INCLUDING HIGH K+ 5.9 AND ARE IN PROCESS, NEPHROLOGY CONSULT TO BE CALLED THIS AM PER DR OLIVEIRA. VSS T/O NIGHT. WILL UPDATE DAY RN WITH ALL OUTSTANDING ISSUES AND PROBLEMS TO DATE.
[2024-11-18 09:05] LABS: Anion Gap 16.0 mmol/L (3-11); Blood Urea Nitrogen 141.0 mg/dL (8-24); CO2, Blood 17.0 mmol/L (21-32); Calcium, Blood 8.6 mg/dL (8.5-10.1); Chloride, Blood 105.0 mmol/L (98-108); Creatinine, Blood 5.15 mg/dL (0.60-1.20); Glucose, Blood 370.0 mg/dL (70-99); Potassium, Blood 5.4 mmol/L (3.5-5.5); Sodium, Blood 133.0 mmol/L (136-145)
[2024-11-18] MEDS ORDERED: Darbepoetin (Pharmacy Consult) SC SCH (11:15)
[2024-11-18] MEDS ORDERED: NS 250 ML IV PRN (12:55)
[2024-11-18 14:47] LABS: Ferritin, Serum 364 ng/mL (26-388); Total Iron Binding Capacity 252 ug/dL (250-450)
[2024-11-18] MEDS ORDERED: Insulin Human Lispro 100 Units/ML 3ML Syringe SC SCH (16:30)
[2024-11-18] MEDS ORDERED: Darbepoetin Alfa In Albumn Sol 40 MCG/0.4 ML SC SCH (17:00)
[2024-11-18 17:31] LABS: Hematocrit 23.9 % (37.0-53.0); Hemoglobin 7.4 g/dL (13.5-17.5)
[2024-11-18 17:47] LABS: Anion Gap 14.0 mmol/L (3-11); Blood Urea Nitrogen 135.0 mg/dL (8-24); CO2, Blood 19.0 mmol/L (21-32); Calcium, Blood 8.6 mg/dL (8.5-10.1); Chloride, Blood 106.0 mmol/L (98-108); Creatinine, Blood 5.51 mg/dL (0.60-1.20); Glucose, Blood 189.0 mg/dL (70-99); Potassium, Blood 5.1 mmol/L (3.5-5.5); Sodium, Blood 134.0 mmol/L (136-145)
--- NOTE | 2024-11-18 18:38 | NUR ---
Patient admitted to the ICU in respiratory distress with unclear pathology, see builder beam notes for workup. Renal functional found to be declining from baseline, Dr Meza who is the patient's established naval aircrewman avionics notified of patient's admission here on the ICU. Patient is between BiPap and facemask for supplemental oxygen. Desats with exertion and in conversation, however, reports feeling more comfortable in his breathing than yesterday.
[2024-11-18] MEDS ORDERED: Sod Ferric Gluc Complx/Sucrose 125 MG in NS 100 ML IV SCH (19:00)
--- NOTE | 2024-11-18 21:00 | NUR ---
ASSUMPTION OF CARE ASSUMED CARE OF PT AT 1900 WITH CLIFF PERALES AND RECIEVED REPORT FROM GLENN PERALES. PT IS A&0 X4 ABLE TO MAKE NEEDS KNOWN AND MOVE EXTREMITIES EQUALLY AND BILATERALLY, PT IS AFEBRILE. CONTINUOUS CARDIAC MONITORING IS IN PLACE AND SHOWS SINUS RYHTHM WITH A HR IN THE 60'S, MAP >65. PT IS ON 15L WHILE ON THE OXIMIZER MASK WITH SP02 >88%. PT'S WORK OF BREATHING INCREASES WHILE TALKING AND MOVING AND DESATS WHEN OXIMIZER MASK IS REMOVED. PT USES THE URINAL. RAC PIV AND LUE POWERGLIDE ARE IN PLACE. BED IN LOWEST POSITION, CALL LIGHT IN REACH, CARE CONTINUES.
[2024-11-19] VITALS (31 sets, daily range): BP systolic 116–164; BP diastolic 63–93
[2024-11-19 05:11] LABS: Hematocrit 24.7 % (37.0-53.0); Hemoglobin 7.9 g/dL (13.5-17.5)
[2024-11-19 05:27] LABS: Albumin, Blood 2.7 g/dL (3.4-5.0); Anion Gap 14 mmol/L (3-11); Blood Urea Nitrogen 144 mg/dL (8-24); CO2, Blood 18 mmol/L (21-32); Calcium, Blood 8.3 mg/dL (8.5-10.1); Chloride, Blood 108 mmol/L (98-108); Creatinine, Blood 5.09 mg/dL (0.60-1.20); Glucose, Blood 195 mg/dL (70-99); Magnesium, Blood 2.9 mg/dL (1.6-2.4); Phosphorus, Blood 6.1 mg/dL (2.5-4.9); Potassium, Blood 5.3 mmol/L (3.5-5.5); Sodium, Blood 135 mmol/L (136-145)
--- NOTE | 2024-11-19 05:45 | NUR ---
END OF SHIFT SUMMARY PT IS A&0 X4 ABLE TO MAKE NEEDS KNOWN AND CAN MOVE EXTREMITIES EQUALLY AND BILATERALLY. CONTINUOUS CARDAIC MONITORING IS IN PLACE SHOWING SINUS RHYTHM WITH A HR IN THE 60'S, MAP >65. PT WAS ON BIPAP THROUGHOUT THE NIGHT AND IS CURRENTLY ON OXIMIZER AT 15L, SP02 >88%. PT HAD NO BOWEL MOVEMENT THIS SHIFT AND USES URINAL. RAC AND LUE POWERGLIDE ARE IN PLACE. CALL LIGHT IN REACH, CARE CONTINUES.
[2024-11-19] MEDS ORDERED: Furosemide 10 MG / ML 2ML Vial IV SCH (09:00)
[2024-11-19 15:40] LABS: SARS-Cov-2 (COVID-19), BioFire Not Detected (NOT DETECT)
[2024-11-19 15:41] LABS: Influenza A/2009-H1 Not Detected (NOT DETECT)
[2024-11-19 16:17] LABS: CYCLOSPORINE A BY HPLC-MS/MS 207.3 ng/mL
--- NOTE | 2024-11-19 17:44 | NUR ---
SHIFT SUMMARY NO ACUTE EVENTS. PT ALERT, ORIENTED, AND COOPERATIVE W/ CARE. PT MADE NPO FOR LUNCH FOR POSSIBLE PERMACATH PLACEMENT- RESCHEDULED FOR TOMORROW AM 11/20. PT TO BE NPO AFTER MIDNIGHT AND IS AWARE. PT ON 6L VIA OXYMIZER WHILE AT REST. USES NC AT 15L WHILE EATING/DRINKING. PT DESATURATES TO 70S W/ EXERTION AND WOB INCREASES. CRACKLES IN LUNGS/ DIM BASES. NSR RATE OF 70S VIA CONTINUOUS MONITOR. BP STABLE. PT AFEBILE. NO BM THIS SHIFT. PT USING URINAL INDEPENDENTLY. NO NEW SKIN ISSUES OBSERVED. PG TO KATE AND PIV TO RAC PATENT AND SALINE LOCKED. CALL LIGHT W/IN REACH. PLAN OF CARE ONGOING.
--- NOTE | 2024-11-19 22:54 | NUR ---
ASSUMPTION OF CARE ASSUMED CARE OF PT AT 1900 WITH CLIFF PERALES AND RECIEVED REPORT FROM PRESTON PERALES. PT IS A&0 X4, ABLE TO MAKE NEEDS KNOWN AND CAN MOVE EXTREMITIES EQUALLY AND BIALTERALLY. CONTINUOUS CARDIAC MONITORING IN PLACE SHOWING SINUS RHYTHM WITH OCCASIONAL PAC'S, HR IN THE 70'S-80'S, MAP >65. PT IS CURRENTLY ON BIPAP WHILE SLEEPING, BIPAP SETTINGS ARE 8/5/85% WITH SP02 >88%. PT'S WORK OF BREATHING INCREASES WITH MOVEMENT. LUE POWERGLIDE AND RAC ARE IN PLACE. BED IN LOWEST POSITION, CALL LIGHT IN REACH, CARE CONTINUES.
[2024-11-20] VITALS (40 sets, daily range): BP systolic 118–159; BP diastolic 58–122
[2024-11-20 03:29] LABS: Hematocrit 24.2 % (37.0-53.0); Hemoglobin 7.6 g/dL (13.5-17.5)
[2024-11-20 03:59] LABS: Albumin, Blood 2.6 g/dL (3.4-5.0); Anion Gap 15 mmol/L (3-11); Blood Urea Nitrogen 146 mg/dL (8-24); CO2, Blood 18 mmol/L (21-32); Calcium, Blood 8.4 mg/dL (8.5-10.1); Chloride, Blood 106 mmol/L (98-108); Creatinine, Blood 5.19 mg/dL (0.60-1.20); Glucose, Blood 177 mg/dL (70-99); Phosphorus, Blood 6.4 mg/dL (2.5-4.9); Potassium, Blood 5.1 mmol/L (3.5-5.5); Sodium, Blood 134 mmol/L (136-145)
--- NOTE | 2024-11-20 05:45 | NUR ---
END OF SHIFT SUMMARY PT IS A&0 X4, ABLE TO MAKE NEEDS KNOWN AND CAN MOVE EXTREMITIES EQUALLY AND BILATERALLY. PT IS AFEBRILE. CONTINUOUS CARDIAC MONITOING IN PLACE SHOWING SR WITH OCCASIONAL PAC'S. HR IN THE 70'S-80'S, MAP >65. PT IS CURRENTLY ON 12L VIA THE OXIMIZER MASK, WITH SP02 >88%. PT TOLERATED BIPAP FOR MOST OF THE NIGHT. PT BECOMES SOB AND HAS INCREASED WORK OF BREATHING WITH MOVEMENT. PT HAS A PRODUCTIVE AND CONTINUOUS COUGH WITH THICK SPUTUM. PT HAS BEEN NPO SINCE MIDNIGHT FOR POSSIBLE PERMACATH PROCEDURE. USES URINAL INDEPENDENTLY. LUE POWERGLIDE AND RAC ARE IN PLACE. BED IN LOWEST POSITION, CALL LIGHT IN REACH, WILL REPORT TO ONCOMING RN.
--- NOTE | 2024-11-20 08:23 | NUR ---
PT PENDING PROCEDURE THIS AM, NPO AT THIS TIME- PO MEDS DISCUSSED W/ DR. CLEVEL[place]. COREG GIVEN PER OTHER MEDS DELAYED UNTIL AFTER PROCEDURE. PT BED LAID FLAT, WEARING OXYMIZER AT 9LPM. PT TOLERATING WELL, O2 SATS>94-99%. PT RESTING, CALL LIGHT W/IN REACH.
[2024-11-20] MEDS ORDERED: NS 250 ML IV ONE (12:07)
[2024-11-20] MEDS ORDERED: Heparin Sodium 1000 Units/ML 10ML MDV ONE (12:07)
[2024-11-20] MEDS ORDERED: NS 500 ML IV ONE (12:07)
--- NOTE | 2024-11-20 12:33 | NUR ---
PT TO LAB FOR DIALYSIS CATH PLACEMENT AT 1230
[2024-11-20] MEDS ORDERED: Midazolam HCl 1MG / ML 2ML Vial ONE (12:35)
[2024-11-20] MEDS ORDERED: FentaNYL Citrate 50 MCG/ML 2 ML Injection ONE (12:35)
--- NOTE | 2024-11-20 13:34 | NUR ---
Pt returns from procedure. Dialysis nurse at bedside to initiate treatment. Permacath placed to R. chest. Pt tolerated well. Pt , Valerie updated via phone.
[2024-11-20] MEDS ORDERED: Heparin Sodium,Porcine 5,000 UNIT/0.5 ML SDV SC SCH (18:00)
[2024-11-20] MEDS ORDERED: Enoxaparin 40 MG/0.4 ML SYR SC SCH (18:00)
--- NOTE | 2024-11-20 19:53 | NUR ---
SHIFT SUMMARY PT WENT TO LAB TO DAY FOR PERMACATH PLACEMENT. MEDICATION ADMINISTRATION DEFERRED FOR PROCEDURE. SEE MAR FOR FURTHER DETAILS. PT RECIEVED DIALYSIS AND HAD 1L TAKEN OFF, PLANS FOR DIALYSIS AGAIN TOMORROW. PT REMAINS ALERT/ORIENTED AND COOPERATIVE W/ CARE. PT HOME MEDICATION DISCUSSED W/ PT AND NURSE NIGHT CLERK AUDITOR. PT AND TO DIRECT ADMINISTRATION SCHEDULE AND DOSING FOR ANTI-REJECTION MEDICATIONS. PROVIDER AWARE. PT ON 6L VIA OXYMIZER AT REST AND ON 15L VIA NC DURING MEALS. TOLERATING WELL. PT NSR RATE OF 70S. BP STABLE. PT AFEBRILE. USING URINAL INDEPENDENTLY IN BED. NO BM DURING THIS SHIFT. NO NEW SKIN ISSUES OBSERVED. DRESSING TO PERMACATH ON R. CHEST C/D/I. CALL LIGHT W/ IN REACH. PLAN OF CARE ONGOING.
--- NOTE | 2024-11-20 23:49 | NUR ---
TRANSFER NOTE REPORT CALLED TO [facility]. REVIEWED ALL OUTSTANDING ISSUES AND PROBLEMS TO DATE. VSS PRIOR TO TRANSFER TO PCU 1 WITH ALL BELONGINGS.
[2024-11-21] VITALS (20 sets, daily range): BP systolic 116–164; BP diastolic 54–99
--- NOTE | 2024-11-21 03:12 | NUR ---
ASSUMPTION OF CARE: ASSUMED CARE OF PT AT 0005. PT A&OX4 CALM AND COOPERATIVE. ABLE TO MAKE NEEDS KNOWN AND CALLS APPROPRIATELY. NSR 70S. PT MAINTAINING >90% ON 6L OXY MASK. PT ENDORSES SOB WITH EXERTION. DENIES CHEST PAIN/PRESSURE. BED IS LOW AND LOCKED AND CALL LIGHT WITHIN REACH.
[2024-11-21 04:16] LABS: BASOPHILS ABSOLUTE AUTO 0.01 K/mm3 (0.00-0.23); BASOPHILS PERCENT AUTO 0 % (0-2); EOSINOPHILS ABSOLUTE AUTO 0.00 K/mm3 (0.00-0.68); EOSINOPHILS PERCENT AUTO 0 % (0-6); Hematocrit 27.0 % (37.0-53.0); Hemoglobin 8.5 g/dL (13.5-17.5); IMMATURE GRAN ABSOLUTE AUTO 0.03 K/mm3 (0.00-0.10); IMMATURE GRAN PERCENT AUTO 0 % (0-1); LYMPHOCYTES ABSOLUTE AUTO 0.58 K/mm3 (0.84-5.20); LYMPHOCYTES PERCENT AUTO 8 % (21-46); MONOCYTES ABSOLUTE AUTO 0.22 K/mm3 (0.16-1.47); MONOCYTES PERCENT AUTO 3 % (4-13); Mean Corpuscular HGB Conc 31.5 g/dL (31.5-36.5); Mean Corpuscular Volume 87 fL (80-100); NEUTROPHILS ABSOLUTE AUTO 6.84 K/mm3 (1.96-9.15); NEUTROPHILS PERCENT AUTO 89 % (41-73); NRBC ABSOLUTE 0.00 K/mm3 (0.00-0.02); NRBC Auto 0.0 /100 WBC (0.0-0.2); Platelet Count 176 K/mm3 (150-400); RDW Coefficient Variation 15.9 % (11.7-14.2); RDW Standard Deviation 50.4 fL (35.1-46.3)
[2024-11-21 04:44] LABS: Alanine Aminotransfer (ALT/SGP 20.0 U/L (12-78); Albumin, Blood 2.8 g/dL (3.4-5.0); Albumin/Globulin Ratio 0.8 (0.8-1.8); Anion Gap 13.0 mmol/L (3-11); Aspartate Aminotrans (AST/SGOT 20.0 U/L (12-37); Bilirubin, Direct 0.5 mg/dL (0.0-0.3); Bilirubin, Indirect 0.6 mg/dL (0.1-0.7); Bilirubin, Total 1.1 mg/dL (0.1-1.0); Blood Urea Nitrogen 90.0 mg/dL (8-24); CO2, Blood 23.0 mmol/L (21-32); Calcium, Blood 8.4 mg/dL (8.5-10.1); Chloride, Blood 104.0 mmol/L (98-108); Creatinine, Blood 3.67 mg/dL (0.60-1.20); Globulin, Blood 3.6 g/dL (2.2-4.0); Glucose, Blood 138.0 mg/dL (70-99); Phosphorus, Blood 6.7 mg/dL (2.5-4.9); Potassium, Blood 5.6 mmol/L (3.5-5.5); Sodium, Blood 134.0 mmol/L (136-145); Total Protein, Blood 6.4 g/dL (6.4-8.2)
--- NOTE | 2024-11-21 05:24 | NUR ---
SHIFT SUMMARY: PT A&OX4 CALM AND COOPERATIVE. ABLE TO MAKE NEEDS KNOWN AND CALLS APPROPRIATELY. NSR 60S-70S. SBP 140S-150S. MAINTAINED >88% ON 6L OXY MASK AND TOLERATED BIPAP THROUGHOUT THE NIGHT. NO BM DURING SHIFT. USES URINAL AT BEDSIDE. PLAN IS FOR DIALYSIS AND ST EVALUATION TODAY. BED IS LOW AND LOCKED. CALL LIGHT WITHIN REACH. CONTINUE WITH CURRENT PLAN OF CARE.
[2024-11-21] MEDS ORDERED: Ondansetron HCl 2 MG / ML 2ML Vial IV PRN (08:00)
[2024-11-21] MEDS ORDERED: Epoetin Alfa-EPBX 10,000 Unit/ML 1ML Vial SC SCH (09:00)
--- NOTE | 2024-11-21 09:16 | NUR ---
Update Pt A&O x4. VSS. Spo2 > 92% on 8L oxymask. Monitor showing SR, HR 60s. Pt NPO awaiting ST eval. Pt transitioned from oxymask to high tyrell NC w/ pt quickly desating to 70s then 69% w/ pt simultaneously stating "I'm not getting any air. I don't feel good. I think I'm going to be sick." Pt then w/ episode of dark yellow/brown liquid emesis. Pt transitioned back to oxymask d/t no airflow from NC. Pt able to appropriately lift mask (that is not solid or enclosing) from face appropriately if needed for emesis. IV zofran not available per EMAR. Second nurse contacted for IV zofran order. Zofran then given per order. ST to , will reattempt at later time. Pt will remain NPO until appropriate for ST eval. Pt now on functioning 8L high tyrell NC. Pt then gone to dialysis at approx 0830.
--- NOTE | 2024-11-21 10:46 | NUR ---
Desat Pt at dialysis. Pt o2 previously titrated from 8L to 6L w/ pt spo2 > 92%. Pt then w/ urinal use while laying in bed, desatting to 66%. PCU nurses to rm. Pt reporting feeling SOB. Pt boosted in bed & sat upright, NC temporarily increased to 15L for recovery while deep breathing. NC then titrated down to 8L NC w/ pt spo2 92-94%.
--- NOTE | 2024-11-21 13:31 | NUR ---
Aspiration Pt brought back from dialysis. Pt reports taking medications all together w/ water at home. Morning medications provided w/ pt tolerating sips of water (no straw), then medications one at a time in water, prioritizing anti-rejection medications. Pt slowly taking sips of water & medications, then upon last pill pt took a drink and began choking, turning bright red & not breathing. Pt leaning forward from upright position. This RN encouraging pt to cough. Pt eventually able to cough & breathe. Pt stating "I took too big a drink. I haven't done this in weeks." Pt desat 70s, NC increased to 15L still needing further o2. Oxymask applied in addition to NC. Pt able to cough & deep breathe. NC able to be titrated back down over time. Pt still requiring 6-10L NC.
[2024-11-21 15:38] LABS: HEPATITIS B SURFACE ANTIBODY 5.12 IU/L
[2024-11-21 16:09] LABS: HBV CORE ANTIBODIES,TOTAL Negative (Negative)
--- NOTE | 2024-11-21 18:35 | NUR ---
End of Shift See previous notes for previous events this shift. Pt continues to be A&O x4, pleasant & cooperative. Pt reports feeling better this afternoon/evening. Pt VSS. Spo2 > 92% on 6-15L high flow NC this shift. Pt seen by ST this afternoon w/ pt tolerating ST recommended diet & medication administration. Pt c/o nausea, medicated per emar w/ pt report of improvement. Pt spouse at bedside this shift. Pt spouse stressing importance of cyclosporine medication be given at 2000 tonight & cyclosporine lab draw be done inbetween [id number] tomorrow morning.
[2024-11-22 03:30] LABS: BASOPHILS ABSOLUTE AUTO 0.01 K/mm3 (0.00-0.23); BASOPHILS PERCENT AUTO 0 % (0-2); EOSINOPHILS ABSOLUTE AUTO 0.00 K/mm3 (0.00-0.68); EOSINOPHILS PERCENT AUTO 0 % (0-6); Hematocrit 25.8 % (37.0-53.0); Hemoglobin 8.3 g/dL (13.5-17.5); IMMATURE GRAN ABSOLUTE AUTO 0.04 K/mm3 (0.00-0.10); IMMATURE GRAN PERCENT AUTO 1 % (0-1); LYMPHOCYTES ABSOLUTE AUTO 0.51 K/mm3 (0.84-5.20); LYMPHOCYTES PERCENT AUTO 8 % (21-46); MONOCYTES ABSOLUTE AUTO 0.38 K/mm3 (0.16-1.47); MONOCYTES PERCENT AUTO 6 % (4-13); Mean Corpuscular HGB Conc 32.2 g/dL (31.5-36.5); Mean Corpuscular Volume 86 fL (80-100); NEUTROPHILS ABSOLUTE AUTO 5.31 K/mm3 (1.96-9.15); NEUTROPHILS PERCENT AUTO 85 % (41-73); NRBC ABSOLUTE 0.00 K/mm3 (0.00-0.02); NRBC Auto 0.0 /100 WBC (0.0-0.2); Platelet Count 159 K/mm3 (150-400); RDW Coefficient Variation 15.9 % (11.7-14.2); RDW Standard Deviation 50.6 fL (35.1-46.3)
[2024-11-22 03:40] VITALS: BP 155/87
[2024-11-22 03:54] LABS: Albumin, Blood 2.7 g/dL (3.4-5.0); Anion Gap 14 mmol/L (3-11); Blood Urea Nitrogen 87 mg/dL (8-24); CO2, Blood 26 mmol/L (21-32); Calcium, Blood 8.2 mg/dL (8.5-10.1); Chloride, Blood 98 mmol/L (98-108); Creatinine, Blood 3.81 mg/dL (0.60-1.20); Glucose, Blood 275 mg/dL (70-99); Phosphorus, Blood 7.9 mg/dL (2.5-4.9); Potassium, Blood 5.7 mmol/L (3.5-5.5); Sodium, Blood 132 mmol/L (136-145)
--- NOTE | 2024-11-22 04:18 | NUR ---
Assumed care of pt at 1900. Pt awake and oriented x4. Pt currently on 8L HFNC. Pt gets very dyspneic with exertion and O2 drops with minimal activity. Pt educated and assisted on use of flutter valve. Pt coughing up a small amount of thick secretions. Pt educated and using suction appropriately. Hooked up to male purewick to help minimize exertion trying to use the urinal. VSS. Bed in lowest position and call light within reach.
[2024-11-22 08:03] VITALS: BP 163/86
[2024-11-22] MEDS ORDERED: Calcium Acetate 667 MG Gel Cap PO SCH (08:30)
[2024-11-22 11:13] VITALS: BP 111/75
--- NOTE | 2024-11-22 15:09 | NUR ---
Transplant medications Call from pt's [facility] transplant nurse coordinator, Yaneht, stating to please keep pt on set transplant medications schedule for pt's prednisone, cyclosporine & mycophenolate. Nurse coordinator stating hemodialysis having "minimal effect on prednisone & mycophenolate & does not touch cyclosporine." Nurse coordinator stressing importance of pt keeping set schedule for these medications even with dialysis.
[2024-11-22 15:27] VITALS: BP 134/79
[2024-11-22 16:33] LABS: Anion Gap 14.0 mmol/L (3-11); Blood Urea Nitrogen 109.0 mg/dL (8-24); CO2, Blood 25.0 mmol/L (21-32); Calcium, Blood 8.6 mg/dL (8.5-10.1); Chloride, Blood 99.0 mmol/L (98-108); Creatinine, Blood 4.57 mg/dL (0.60-1.20); Glucose, Blood 163.0 mg/dL (70-99); Potassium, Blood 5.1 mmol/L (3.5-5.5); Sodium, Blood 133.0 mmol/L (136-145)
--- NOTE | 2024-11-22 18:22 | NUR ---
End of Shift Pt A&O x4. VSS. Monitor showing SR. Spo2 > 92% on 6-8L NC at rest, requiring increase for activity. Pt up to chair w/ therapy today, requiring 15L high flow NC & 15L oxymask over for recovery. Pt quickly able to recover from spo2 in the 70s. Pt tolerating PO intake. No events this shift.
[2024-11-22 20:09] VITALS: BP 107/59
[2024-11-22 23:12] VITALS: BP 140/75
[2024-11-23] VITALS (22 sets, daily range): BP systolic 94–142; BP diastolic 61–92
[2024-11-23 04:06] LABS: BASOPHILS ABSOLUTE AUTO 0.01 K/mm3 (0.00-0.23); BASOPHILS PERCENT AUTO 0 % (0-2); EOSINOPHILS ABSOLUTE AUTO 0.02 K/mm3 (0.00-0.68); EOSINOPHILS PERCENT AUTO 0 % (0-6); Hematocrit 26.4 % (37.0-53.0); Hemoglobin 8.4 g/dL (13.5-17.5); IMMATURE GRAN ABSOLUTE AUTO 0.15 K/mm3 (0.00-0.10); IMMATURE GRAN PERCENT AUTO 1 % (0-1); LYMPHOCYTES ABSOLUTE AUTO 0.89 K/mm3 (0.84-5.20); LYMPHOCYTES PERCENT AUTO 8 % (21-46); MONOCYTES ABSOLUTE AUTO 0.70 K/mm3 (0.16-1.47); MONOCYTES PERCENT AUTO 7 % (4-13); Mean Corpuscular HGB Conc 31.8 g/dL (31.5-36.5); Mean Corpuscular Volume 86 fL (80-100); NEUTROPHILS ABSOLUTE AUTO 8.85 K/mm3 (1.96-9.15); NEUTROPHILS PERCENT AUTO 83 % (41-73); NRBC ABSOLUTE 0.00 K/mm3 (0.00-0.02); NRBC Auto 0.0 /100 WBC (0.0-0.2); Platelet Count 170 K/mm3 (150-400); RDW Coefficient Variation 15.8 % (11.7-14.2); RDW Standard Deviation 49.4 fL (35.1-46.3)
--- NOTE | 2024-11-23 04:33 | NUR ---
SHIFT SUMMARY. SHIFT HAS BEEN UNREMARKABLE. PT AOX4, PLEASANT, COOPERATIVE, ABLE TO MAKE NEEDS KNOWN. HAS BEEN ABLE TO REST COMFORTABLY THROUGHOUT MUCH OF SHIFT. HAS DENIED PAIN THROUGHOUT SHIFT. VITALS HAVE REMAINED STABLE. HAS BEEN RUNNING SINUS ON TELE W/ RATE SETTLING IN THE 60s-70s RANGE WHILE SLEEPING. HAS MAINTAINED ADEQUATE SATURATION ON 6 L O2 VIA NC W/ FEW SPORADIC AND BRIEF DESATURATIONS W/ ACTIVITY. ABLE TO QUICKLY RECOVER. PUREWICK IN PLACE T/O SHIFT, FUNCTIONING WELL. BED LOCKED IN LOWEST POSITION. CALL LIGHT LEFT WTIHIN REACH. CONTINUING TO MONITOR.
[2024-11-23 04:36] LABS: Albumin, Blood 2.8 g/dL (3.4-5.0); Anion Gap 14 mmol/L (3-11); Blood Urea Nitrogen 119 mg/dL (8-24); CO2, Blood 24 mmol/L (21-32); Calcium, Blood 8.2 mg/dL (8.5-10.1); Chloride, Blood 98 mmol/L (98-108); Creatinine, Blood 5.05 mg/dL (0.60-1.20); Glucose, Blood 168 mg/dL (70-99); Phosphorus, Blood 7.6 mg/dL (2.5-4.9); Potassium, Blood 4.9 mmol/L (3.5-5.5); Sodium, Blood 131 mmol/L (136-145)
--- NOTE | 2024-11-23 17:59 | NUR ---
PT SUMMARY; PT TRANSITIONED TO MEDICAL STATUS NO TELE. PT AWAITING PLACEMENT TO SNF. PT HAD DIALYSIS TODAY HAD 1500MLS FLUIDS OUT. DR HALEY SAW PT TODAY. PT HAS CONCERNS ABOUT DIFLUCAN STOP DOSE, VERIFIED WITH DR HALEY PT ONLY NEEDING ONE WEEK DOSE, PHARMACY CALLED AND MADE SOME CHANGES ON THE ORDERS. [facility] ECAME IN TO VISIT AND WAS GIVEN UPDATE REGARDING PT WELL. [facility] FAXED BRONCH RESULT CULTURE OF THE SPUTUM CALLED DR BYRNE AND MADE AWARE NO NEW ORDERS AT THIS TIME, PT HAS BEEN ON ANTIOBIOTIC AND IS COVERED AT THIS TIME. VITALS HAS BEEN STBALE. PT HAS BEEN UP IN THE RECLINER 1PA FOR TRANSFERS. NO OTHER ISSUES FOR THE SHIFT WILL REPORT TO ONCOMING SHIFT
--- NOTE | 2024-11-23 19:46 | NUR ---
ASSUMPTION OF CARE ASSUMED PT'S CARE AT 1900.PT SITTING UP IN CHAIR WITH BLE ELEVATED, PLAYING A GAME ON HIS LAPTOP.BEDSIDE REPORT COMPLETED.PT DENIES PAIN,DENIES SOB,DENIES NEEDS AT THIS TIME.PLAN OF CARE REVIEWED.CALL LIGHT AND PT'S ITEMS WITHIN REACH.MONITORING ONGOING PER CAREPLAN.
[2024-11-24 00:57] VITALS: BP 134/83
[2024-11-24 04:03] VITALS: BP 140/72
--- NOTE | 2024-11-24 06:19 | NUR ---
PT MONITORED DURING THE SHIFT.PT HAD A COUGHING FIT AFTER TAKING HS MEDS.PT SAID THAT HE HAD SOMETHING IN HIS THROAT THAT HE WAS NOT ABLE TO GET RID OF.PT REQUIRED 10L OF OXYGEN AT THE TIME SINCE HIS OXYGEN SATURATION DROPPED DOWN TO 83% DURING THE COUGHING FIT.THE COUGH STOPPED AFTER 5 MINUTES AND HIS OXYGEN SATURATION WENT UP TO 100%.OXYGEN FLOW RATE REDUCED TO 6L.OXYGEN WEANED DOWN TO 4L THROUGH THE SHIFT.PT MAINTAINING OXYGEN SATURATION AT 100% ON 4L.NO OTHER ACUTE EVENTS NOTED DURING THE SHIFT.PT SLEEPING AT THIS TIME,EASILY AROUSABLE.PT DENIES PAIN,DENIES SOB,DENIES NEEDS.CALL LIGHT AND PT'S ITEMS WITHIN REACH.MONITORING ONGOING PER CAREPLAN.
[2024-11-24 08:14] VITALS: BP 151/86
[2024-11-24] MEDS ORDERED: Calcium Acetate 667 MG Gel Cap PO SCH (08:30)
[2024-11-24] MEDS ORDERED: Vitamin B Cmplx/Vit C/Folic Ac 1 Tab PO SCH (09:00)
[2024-11-24 11:07] VITALS: BP 117/82
[2024-11-24 12:58] LABS: CYCLOSPORINE A BY HPLC-MS/MS 225.4 ng/mL
[2024-11-24 16:36] VITALS: BP 117/69
[2024-11-24 18:06] LABS: CYCLOSPORINE A BY HPLC-MS/MS 167.9
--- NOTE | 2024-11-24 18:20 | NUR ---
SHIFT SUMMARY NO ACUTE CHANGES THIS SHIFT. PT A&OX4. SP02>90% ON 3L NC AT REST, NEEDING 8-15 W/ AMBULATION/EXERTION. PRODUCTIVE COUGH, SELF SUCTIONINGING. MEDICAL STATUS, NO TELEMETRY. DENIES PAIN. MALE PURWIK TO SUCTION. NO BM THIS SHIFT. ABLE TO WORK WITH PT, UP TO RECLINER MOST OF DAY. ABX INFUSED PER EMAR. PT PLAYING LAPTOP GOLF GAME IN RECLINER CURRENTLY. CALL LIGHT IN REACH.
--- NOTE | 2024-11-24 19:24 | NUR ---
ASSUMPTION OF CARE ASSUMED PT'S CARE AT 1900.PT SITTING UP IN CHAIR WITH BLE ELEVATED.BEDSIDE REPORT COMPLETED,PLAN OF CARE REVIEWED.PT DENIES PAIN,DENIES SOB,DENIES NEEDS.PT ON 3L VIA NC,OXYGEN SATURATION 99%.CALL LIGHT AND PT'S ITEMS WITHIN REACH.MONITORING ONGOING PER CAREPLAN.
[2024-11-24 19:58] VITALS: BP 137/81
--- NOTE | 2024-11-24 20:31 | NUR ---
PATIENTS PRIMARY NURSE DARINEL RN WAS BUSY IN ANOTHER PATIENTS ROOM AND THIS NURSE WAS ALREADY CALLING THE RESIDENT FOR THIS NURSES HIGH CBG WELL. PER DARINEL RN, PATIENTS CBG WAS 376 - 6 UNITS OF HUMALOG HAS BEEN GIVEN WELL THE HUMALIN 70/[address] PLASENCIA HAS NO NEW ORDERS TO BE PLACED FOR THIS PATIENT AT THIS TIME. RECHECK CBG IN ABOUT 3-4 HOURS. PRIMARY NURSE DARINEL WAS NOTIFIED OF MD'S RECOMMENDATIONS.
[2024-11-25 00:42] VITALS: BP 144/89
[2024-11-25 04:19] LABS: Magnesium, Blood 2.1 mg/dL (1.6-2.4)
[2024-11-25 04:21] LABS: Albumin, Blood 2.5 g/dL (3.4-5.0); Anion Gap 12 mmol/L (3-11); Blood Urea Nitrogen 83 mg/dL (8-24); CO2, Blood 26 mmol/L (21-32); Calcium, Blood 8.4 mg/dL (8.5-10.1); Chloride, Blood 100 mmol/L (98-108); Creatinine, Blood 5.41 mg/dL (0.60-1.20); Glucose, Blood 323 mg/dL (70-99); Potassium, Blood 4.6 mmol/L (3.5-5.5); Sodium, Blood 133 mmol/L (136-145)
[2024-11-25 04:27] LABS: Phosphorus, Blood 4.2 mg/dL (2.5-4.9)
[2024-11-25 05:10] VITALS: BP 124/68
--- NOTE | 2024-11-25 06:34 | NUR ---
PT MONITORED DURING THE SHIFT.PT WAS AWAKE MOST OF THE NIGHT SITTING UP IN CHAIR.PT WENT TO BED AFTER MIDNIGHT.NO ACUTE EVENTS NOTED.PT MAINTAINED OXYGEN SATURATION >94% ON 4L VIA NC.PT SLEEPING AT THIS TIME,EASILY AROUSABLE.PT DENIES PAIN,DENIES SOB,DENIES NEEDS.CALL LIGHT AND PT'S ITEMS WITHIN REACH.MONITORING ONGOING PER CAREPLAN.
[2024-11-25 07:29] VITALS: BP 136/87
[2024-11-25 10:17] LABS: QUANTIFERON MITOGEN MINUS NIL 0.11 IU/mL; QUANTIFERON NIL 0.05 IU/mL; QUANTIFERON PLUS TB1 MINUS NIL 0.00 IU/mL (<=0.34); QUANTIFERON PLUS TB2 MINUS NIL 0.01 IU/mL (<=0.34)
[2024-11-25 15:40] VITALS: BP 136/87
--- NOTE | 2024-11-25 16:26 | NUR ---
shift summary NO ACUTE CHANGES THIS SHIFT. PT STATES FEELING GOOD. PT A&OX4. SP02>90% ON 3L NC AT REST, NEEDING 8-15 W/ AMBULATION/EXERTION. PT ABLE TO REPOSITION SELF IN BED THIS SHIFT WITHOUT DESATTING. PRODUCTIVE COUGH, SELF SUCTIONINGING. MEDICAL STATUS, NO TELEMETRY. DENIES PAIN. MALE PURWIK TO SUCTION. NO BM THIS SHIFT. C/O OF COCCYX PRESSURE. CREAM APPLIED, REPOSITIONED DILGANTLY Q2H. ABX INFUSED PER EMAR. CURRENTLY IN ROOM TALKING WITH FAMILY. CALL LIGHT IN REACH.
[2024-11-25] MEDS ORDERED: Insulin Isoph 70 / Reg 30 100 Unit/ML 10ML Vial SC SCH ×2 (16:30→18:00)
--- NOTE | 2024-11-25 16:45 | NUR ---
ASSUMPTION OF CARE ASSUMED CARE OF PATIENT AT 1645, VSS, SPO2 >90% ON 3L OF HUMIDIFIED O2 VIA NC. PATIENT IS ALERT AND ORIENTED, ABLE TO FOLLOW COMMANDS AND MAKE NEEDS KNOWN. PATIENT ENDORSES MODERATE PAIN TO RIGHT UPPER CHEST DUE TO PERMACATH PLACEMENT, PATIENT REPORTS PAIN PRESENT PRIOR TO ADMISSION SINCE PLACEMENT OF PERMACATH, MEDICATED PER EMAR. PATIENT REPORTS SLIGHT DISCOMFORT TO COCCYX, PATIENT POSITIONED FOR COMFORT. AGREE TO PRIOR REAL ESTATE ACCOUNTANT, NO ACUTE CHANGES PRESENT. PATIENT SITTING UP IN BED, BED IN LOWEST POSITION, CALL LIGHT WITHIN REACH.
[2024-11-25 19:41] VITALS: BP 126/69
[2024-11-25 23:22] VITALS: BP 145/79
[2024-11-26] VITALS (21 sets, daily range): BP systolic 100–167; BP diastolic 52–87
--- NOTE | 2024-11-26 05:30 | NUR ---
SHIFT SUMMARY; PAIENT AWAKE OFTEN, DID HAVE TO BUMP O2 UP WHEN HE WAS JUST ACTIVE IN BED. BUT LOWER BACK TO 3L/NC.
[2024-11-26 06:15] LABS: Albumin, Blood 2.4 g/dL (3.4-5.0); Anion Gap 11 mmol/L (3-11); Blood Urea Nitrogen 101 mg/dL (8-24); CO2, Blood 25 mmol/L (21-32); Calcium, Blood 8.5 mg/dL (8.5-10.1); Chloride, Blood 101 mmol/L (98-108); Creatinine, Blood 5.89 mg/dL (0.60-1.20); Glucose, Blood 224 mg/dL (70-99); Phosphorus, Blood 4.6 mg/dL (2.5-4.9); Potassium, Blood 4.4 mmol/L (3.5-5.5); Sodium, Blood 133 mmol/L (136-145)
[2024-11-26] MEDS ORDERED: Insulin Isoph 70 / Reg 30 100 Unit/ML 10ML Vial SC SCH (07:30)
--- NOTE | 2024-11-26 18:10 | NUR ---
SHIFT SUMMARY: A&OX4 THROUGHOUT SHIFT. PT WENT TO DIALYSIS TODAY WITH A REPORTED 2L TAKEN OFF. PT STS HE TOLERATED WELL. PLEASANT AND COOPERATIVE WITH CARE PROVIDED. PT REMAINS ON 3L O2 VIA NC. O2 SATS >90% AND DENIES SHORTNESS OF BREATH. DENIES CHEST PAIN. PLAN WAS TO D/C TODAY TO [facility], BUT DIFFICULTIES WITH INSURANCE OCCURED SO PLAN IS TO D/C TOMORROW. PT AND MD AWARE. PT MEDICATED PER EMAR. LYING IN BED AT THIS TIME. BED LOCKED AND IN THE LOWEST POSITION. CALL LT WITHIN REACH.
[2024-11-26] MEDS ORDERED: GUAI600T33 PO (18:39)
[2024-11-26] MEDS ORDERED: Calcium Acetat667 MG PO (18:39)
[2024-11-26] MEDS ORDERED: CYCLOSPORINE 25 MG PO SCH (21:00)
--- NOTE | 2024-11-27 04:13 | NUR ---
SHIFT SUMMARY; PATIENT ENDED UP STAYING TONIGHT D/T TOO LATE TRYING TO DISCHARGE. HE FELL ASLEEP AROUND MIDNIGHT, AND OF THIS ENTRY STILL ASLEEP. NO PRN MEDICATIONS REQUESTED.
[2024-11-27 04:42] VITALS: BP 140/76
[2024-11-27 07:43] VITALS: BP 126/88
--- NOTE | 2024-11-27 09:00 | NUR ---
pt laying in bed watching tv, a/ox4, pleasant and cooperative with care, follows commands well, denies pain at this itme, lungs are clear dim t/o, resp even and unlabored, no cough noted, currently on 4 liters 02 via n/c, is home o2 dep, on 3 liters, hrr, no edema noted, ppp+1, cap refill<3 sec, vs stable, afebrile, btx4, abd flat soft nontender, voids via urinal, is a dialysis pt, perma cath to rcw, site is clean and dry, skin is frail, with scattered bruising, maew, bedrest, ally, call light in reach.
--- NOTE | 2024-11-27 13:30 | NUR ---
pt up to bathroom, gasket supervisor assisting, family in room, plan for discharge today, call light in reach.
--- NOTE | 2024-11-27 15:24 | NUR ---
pt will be transfering to [facility] today at 1630, called report to Yesenia at [facility], family at bedside. call light in reach.
--- NOTE | 2024-11-27 16:58 | NUR ---
pt has been transferedt to [facility], no iv sites, he was able to transfer himself to wheelchair, hooked him up to tank in van at 4 liters, all belongings went with pt, transporter has packet.
== END 2024-11-27 16:45 | DRG 199 ==
LOC: ER 23:12 → MEDS 11-17 03:33 → ICUE 11-17 03:33 → PCU 11-17 03:33 → ICUE 11-17 05:40 → PCU 11-21 00:03 → MEDS 11-26 02:33 → ENPENDDIS 11-26 16:36 → MEDS 11-27 16:45
PROVIDERS: Emergency Medicine; Family Medicine; Hospitalist; Internal Medicine; Internal Medicine Critical Care Medicine; Internal Medicine Nephrology; Student in an Organized Health Care Education/Training Program; ADMIT Student in an Organized Health Care Education/Training Program
PROC: 3E03329 Introduction of Other Anti-infective into Peripheral Vein, Percutaneous Approach (ICD-10-PCS; 2024-11-17)
PROC: 0W9930Z Drainage of Right Pleural Cavity with Drainage Device, Percutaneous Approach (ICD-10-PCS; 2024-11-17)
PROC: 5A09357 Assistance with Respiratory Ventilation, Less than 24 Consecutive Hours, Continuous Positive Airway Pressure (ICD-10-PCS; 2024-11-18)
PROC: 0JH63XZ Insertion of Tunneled Vascular Access Device into Chest Subcutaneous Tissue and Fascia, Percutaneous Approach (ICD-10-PCS; principal; 2024-11-20)
PROC: 02HV33Z Insertion of Infusion Device into Superior Vena Cava, Percutaneous Approach (ICD-10-PCS; 2024-11-20)
PROC: B548ZZA Ultrasonography of Superior Vena Cava, Guidance (ICD-10-PCS; 2024-11-20)
PROC: 5A1D70Z Performance of Urinary Filtration, Intermittent, Less than 6 Hours Per Day (ICD-10-PCS; 2024-11-20)
PROC: 5A0935A Assistance with Respiratory Ventilation, Less than 24 Consecutive Hours, High Flow/Velocity Cannula (ICD-10-PCS; 2024-11-21)
DX: J95.811 Postprocedural pneumothorax (principal); J96.21 Acute and chronic respiratory failure with hypoxia; N18.6 End stage renal disease; N17.9 Acute kidney failure, unspecified; J84.116 Cryptogenic organizing pneumonia; K86.1 Other chronic pancreatitis; E87.20 Acidosis, unspecified; Z94.0 Kidney transplant status; Z94.4 Liver transplant status; I12.0 Hypertensive chronic kidney disease with stage 5 chronic kidney disease or end stage renal disease; R65.10 Systemic inflammatory response syndrome (SIRS) of non-infectious origin without acute organ dysfunction; B37.89 Other sites of candidiasis; D84.9 Immunodeficiency, unspecified; J84.9 Interstitial pulmonary disease, unspecified; E87.1 Hypo-osmolality and hyponatremia; B37.0 Candidal stomatitis; E83.41 Hypermagnesemia; E66.9 Obesity, unspecified; D63.1 Anemia in chronic kidney disease; E87.5 Hyperkalemia; E10.22 Type 1 diabetes mellitus with diabetic chronic kidney disease; E10.69 Type 1 diabetes mellitus with other specified complication; Z85.05 Personal history of malignant neoplasm of liver; K21.9 Gastro-esophageal reflux disease without esophagitis; Z88.8 Allergy status to other drugs, medicaments and biological substances; Z79.82 Long term (current) use of aspirin; Z79.899 Other long term (current) drug therapy; Z79.4 Long term (current) use of insulin; E83.39 Other disorders of phosphorus metabolism; E10.65 Type 1 diabetes mellitus with hyperglycemia; Z90.49 Acquired absence of other specified parts of digestive tract; Z98.890 Other specified postprocedural states
CPT/HCPCS: 0202U; 32551; 36415; 36558; 71045; 71250; 76770; 76937; 77001; 80048; 80053; 80069; 80076; 80158; 81001; 82607; 82728; 82746; 82947; 83036; 83540; 83550; 83605; 83735; 83880; 84100; 84145; 84484; 85014; 85018; 85025; 86480; 86704; 87040; 87340; 92526; 92610; 93005; 93010; 94640; 94660; 94664; 94762; 96374; 96376; 97110; 97162; 97165; 97530; 99285-25; A9270; C1750; C1751; C1769; C1894; J0692; J0881; J1644; J1815; J1938; J2250; J2405; J2916; J2919; J3010; J7040; J7050; J7070; J7502; J7512; J7515; J7517; Q5106

== ENCOUNTER 2024-12-08 12:26 | Inpatient (IN) | payer OTHER, MEDICARE ==
[2024-12-08] VITALS (36 sets, daily range): BP systolic 87–131; BP diastolic 61–81
[~2024-12-08] VITALS: Ht 177.8 cm; Wt 85.3 kg
[~2024-12-08 12:26] MED LIST changes: +ATOVAQUONE PO; +Calcium Acetat667 MG PO; +GABA300 PO; +GUAI600T33 PO; +IPRAT-ALBUT 0.5-3 ML INH; +LAMO25 PO; +ZYRTEC10 M2 PO
[2024-12-08 12:52] LABS: pH Blood Venous 7.44 (7.34-7.37)
[2024-12-08 13:12] LABS: BASOPHILS ABSOLUTE AUTO 0.01 K/mm3 (0.00-0.23); BASOPHILS PERCENT AUTO 0 % (0-2); EOSINOPHILS ABSOLUTE AUTO 0.04 K/mm3 (0.00-0.68); EOSINOPHILS PERCENT AUTO 1 % (0-6); Hematocrit 25.7 % (37.0-53.0); Hemoglobin 7.9 g/dL (13.5-17.5); IMMATURE GRAN ABSOLUTE AUTO 0.02 K/mm3 (0.00-0.10); IMMATURE GRAN PERCENT AUTO 1 % (0-1); LYMPHOCYTES ABSOLUTE AUTO 0.45 K/mm3 (0.84-5.20); LYMPHOCYTES PERCENT AUTO 11 % (21-46); MONOCYTES ABSOLUTE AUTO 0.25 K/mm3 (0.16-1.47); MONOCYTES PERCENT AUTO 6 % (4-13); Mean Corpuscular HGB Conc 30.7 g/dL (31.5-36.5); Mean Corpuscular Volume 92 fL (80-100); NEUTROPHILS ABSOLUTE AUTO 3.19 K/mm3 (1.96-9.15); NEUTROPHILS PERCENT AUTO 81 % (41-73); NRBC ABSOLUTE 0.00 K/mm3 (0.00-0.02); NRBC Auto 0.0 /100 WBC (0.0-0.2); Platelet Count 69 K/mm3 (150-400); RDW Coefficient Variation 18.1 % (11.7-14.2); RDW Standard Deviation 61.2 fL (35.1-46.3)
[2024-12-08 13:29] LABS: Alanine Aminotransfer (ALT/SGP 20.0 U/L (12-78); Albumin, Blood 2.6 g/dL (3.4-5.0); Albumin/Globulin Ratio 0.9 (0.8-1.8); Anion Gap 11.0 mmol/L (3-11); Aspartate Aminotrans (AST/SGOT 18.0 U/L (12-37); Bilirubin, Total 0.8 mg/dL (0.1-1.0); Blood Urea Nitrogen 75.0 mg/dL (8-24); CO2, Blood 31.0 mmol/L (21-32); Calcium, Blood 8.0 mg/dL (8.5-10.1); Chloride, Blood 98.0 mmol/L (98-108); Creatinine, Blood 7.71 mg/dL (0.60-1.20); Globulin, Blood 2.8 g/dL (2.2-4.0); Glucose, Blood 103.0 mg/dL (70-99); Potassium, Blood 4.1 mmol/L (3.5-5.5); Sodium, Blood 136.0 mmol/L (136-145); Total Protein, Blood 5.4 g/dL (6.4-8.2)
[2024-12-08] MEDS ORDERED: BISA10S PR (13:32)
[2024-12-08] MEDS ORDERED: ACET325 PO (13:32)
[2024-12-08] MEDS ORDERED: ONDA4 PO (13:33)
[2024-12-08] MEDS ORDERED: LAMO25 PO (13:41)
[2024-12-08] MEDS ORDERED: PRED20 PO (13:42)
[2024-12-08] MEDS ORDERED: Ondansetron HCl 2 MG / ML 2ML Vial IV PRN (14:30)
[2024-12-08] MEDS ORDERED: FLU VACC TS2025-26(6MOS UP)/PF 45 MCG/0.5 ML SYRINGE IM SCH (14:35)
[2024-12-08] MEDS ORDERED: Ipratropium/Albuterol SulF 2.5-0.5MG/3 ML Amp INH SCH (14:35)
[2024-12-08 16:07] LABS: Influenza A, PCR NEGATIVE (NEGATIVE); Influenza B, PCR NEGATIVE (NEGATIVE); Resp Syncytial Virus, PCR NEGATIVE (NEGATIVE); SARS-Cov-2 (COVID-19) PCR, MMC NEGATIVE (NEGATIVE)
[2024-12-08] MEDS ORDERED: Insulin Human Lispro 100 Units/ML 3ML Syringe SC SCH ×3 (16:30→17:30)
[2024-12-08] MEDS ORDERED: INSULIN AS100 UNIT/8 SC (16:55)
[2024-12-08] MEDS ORDERED: Amylase/Lipase/Protease DR Cap 12,000 PO SCH (17:30)
--- NOTE | 2024-12-08 18:01 | NUR ---
ARRIVAL TO ICU: PT ARRIVED TO ICU-10 VIA GURNEY AT APPROX 1640. PT ALERT, ORIENTED X4. ABLE TO COMMUNICATE NEEDS W/ STAFF & PARTICIPATE IN CARE. PT SPEAKING 1-2 WORDS AT A TIME DUE TO DYSPNEA. SPO2 LOW 90'S ON 6L VIA NC. LUNG SOUNDS DIM T/O. HR 70-80'S, SINUS RHYTHM ON MONITOR. SBP 110-130'S, MAP >65. PT DENIES CHEST PAIN/PRESSURE. AFEBRILE. PT TO RECEIVE DIALYSIS TONIGHT PER DR. HALEY. REPORTS PRODUCING VERY MINIMAL URINE AT BASELINE. TOLERATING PO INTAKE, DENIES N/V. PIV TO RAC, RHAND SALINE LOCKED. DIALYSIS CATH TO R CHEST. [facility] PERRY NOTIFIED THAT MED REC COMPLETED W/ PT & PT'S SPOUSE, KATHARINE. PT SITTING UP IN BED ON LAPTOP AT THIS TIME. CALL LIGHT IN REACH.
--- NOTE | 2024-12-08 19:38 | NUR ---
ASSUME CARE: BEDSIDE REPORT RECIEVED FROM DAYSHIFT RN. PT SITTING UP IN BED, A/OX4 AND PLEASANT WITH CARE. VSS, MONITOR SHOWS SINUS RYTHM RATE 80s. SPO2>95% ON 6L NC. DIALYSIS NURSE AT BEDSIDE STARTING DIALYSIS PROCEDURE. DR. HALEY AT BEDSIDE, NEW ORDERS GIVEN FOR BP MANAGEMENT DURING DIALYSIS. CALL LIGHT IN REACH AND BED IN LOWEST POSITION, WILL UPDATE NEEDED.
[2024-12-08] MEDS ORDERED: Albumin (Human) 25gm/100ml 100 ML IV ONE (19:50)
[2024-12-08] MEDS ORDERED: Heparin Sodium,Porcine 5,000 UNIT/0.5 ML SDV SC SCH (21:00)
[2024-12-08] MEDS ORDERED: Insulin NPH 100 Unit / ML 10ML Vial SC SCH (21:00)
[2024-12-08] MEDS ORDERED: CYCLOSPORINE 100 MG PO SCH (21:00)
[2024-12-08] MEDS ORDERED: CYCLOSPORINE 25 MG PO SCH (21:00)
[2024-12-08] MEDS ORDERED: Calcium Acetate 667 MG Gel Cap PO SCH (21:00)
[2024-12-09] VITALS (65 sets, daily range): BP systolic 66–155; BP diastolic 51–107
[2024-12-09 03:44] LABS: Hematocrit 23.4 % (37.0-53.0); Hemoglobin 7.1 g/dL (13.5-17.5); Mean Corpuscular HGB Conc 30.3 g/dL (31.5-36.5); Mean Corpuscular Volume 93 fL (80-100); NRBC ABSOLUTE 0.00 K/mm3 (0.00-0.02); NRBC Auto 0.0 /100 WBC (0.0-0.2); Platelet Count 59 K/mm3 (150-400); RDW Coefficient Variation 18.1 % (11.7-14.2); RDW Standard Deviation 61.7 fL (35.1-46.3)
[2024-12-09 04:11] LABS: Anion Gap 11.0 mmol/L (3-11); Blood Urea Nitrogen 91.0 mg/dL (8-24); CO2, Blood 29.0 mmol/L (21-32); Calcium, Blood 8.2 mg/dL (8.5-10.1); Chloride, Blood 98.0 mmol/L (98-108); Creatinine, Blood 8.84 mg/dL (0.60-1.20); Glucose, Blood 160.0 mg/dL (70-99); Potassium, Blood 4.3 mmol/L (3.5-5.5); Sodium, Blood 134.0 mmol/L (136-145)
--- NOTE | 2024-12-09 05:40 | NUR ---
SHIFT SUMMARY: PT A/Ox4 AND PLEASANT WITH CARE, SLEPT WELL T/O THE NIGHT. SBP 110-130s, MAP>65, MONITOR SHOWS SINUS RYTHM, RATE 70-80s. SPO2>90% ON 10L HIGH FLOW, PT DESATS W/SLEEP/EXCERTION/LAYING FLAT LOW 70%. PT HAS HARSH PRODUCTIVE COUGH WITH THICK, YELLOW SPUTUM, PT ABLE TO USE YANKAUER AND SUCTION SELF NEEDED, LS DIMINISHED T/O. NO URINE OUTPUT THIS SHIFT, PT REPORTS THIS IS NORMAL AFTER DIALYSIS FOR HIM. CALL LIGHT IN REACH AND BED IN LOWEST POSITION. WILL REPORT TO ONCOMING RN.
[2024-12-09] MEDS ORDERED: Insulin Human Lispro 100 Units/ML 3ML Syringe SC SCH (08:30)
--- NOTE | 2024-12-09 08:33 | NUR ---
UPDATE: THIS RN AT PT'S BEDSIDE, PT W/ TACHYPNEA & DYSPNEA. SPO2 70-80'S ON 13L VIA HFNC. THIS RN INCREASED PT'S O2 TO 15L; SPO2 ABLE TO SLOWLY INREASE TO HIGH 80'S/LOW 90'S. PT SPEAKING 1 WORD AT A TIME, EXPLAINING TO THIS RN THAT HIS BREATHING FEELS SIGNIFICANTLY WORSE THIS AM & THAT HE FEELS LIKE HE "CANNOT BREATHE" AFTER COUGHING; HE STATES THIS IS UNUSUAL FOR HIM. CALL TO RT JAMAICA. PT BEING PLACED ON AIRVO AT THIS TIME. CALL PLACED TO DR. GERARD ON PT CONDITION. NO ADDITIONAL ORDERS AT THIS TIME.
[2024-12-09] MEDS ORDERED: Insulin NPH 100 Unit / ML 10ML Vial SC SCH (09:00)
[2024-12-09] MEDS ORDERED: Sod Ferric Gluc Complx/Sucrose 125 MG in NS 100 ML IV SCH (10:00)
--- NOTE | 2024-12-09 11:00 | NUR ---
AM NOTE: THIS RN ASSUMED CARE OF PT AT APPROX 0700. PT ON 10L O2 VIA HFNC BUT FREQUENTLY DESATURATING; O2 TITRATED UP TO 15L W/ SPO2 STILL NOT CONSISTENTLY MAINTAINING >90%. PT ON AIRVO AT THIS TIME, 40 LPM, 43% FIO2. RR 30-40'S. HR 90-110'S, SINUS TACH ON MONITOR. BP STABLE, MAP >65. DIALYSIS INITIATED AT 1023. PT TOLERATING VERY MINIMAL PO INTAKE TODAY. NO VOIDS THIS AM. , KATHARINE, UPDATED BY THIS RN. CALL LIGHT IN REACH.
--- NOTE | 2024-12-09 11:47 | NUR ---
PALLIATIVE CARE VISIT: 1055: MET WITH PT IN HIS ROOM. HE IS AWAKE, AGREEABLE TO VISIT. PT RECEIVING DIALYSIS TREATMENT AT THIS TIME. NO S/S OF DISTRESS. PT DOES GET WINDED WITH SPEAKING BUT RECOVERS QUICKLY WITH REST BETWEEN SENTENCES. POLST/AD DISCUSSION. PT HAS POLST WHICH IS CPR/FULL MEASURES. NURSE HAS COPY ON CHART BROUGHT IN BY . RISKS OF CPR DISCUSSED WITH PT AND HE STATES HE IS AWARE OF RISKS INCLUDING RIB FRACTURES. PT STATES HE HAS ADVANCE DIRECTIVE AND TO BRING IN. PT DENIES PAIN, NAUSEA. PT REPORTS SOB MANAGED. HE BELIEVES HE T[facility] A [facility] WHICH HE MAY HAVE HAD ADVERSE REACTION TO AND THAT IS WHY HE IS BACK. HE IS NOT SURE WHAT THE NAME OF THE MEDICINE IS. PRIMARY RN IS AWARE. PT GIVES PERMISSION TO CONTACT KATHARINE. HE IS ALSO AGREEABLE TO REFERRAL TO PALLIATIVE CARE OUTPATIENT REFERRAL. SPOKE TO KATHARINE ON THE PHONE. SHE WILL NOT BE COMING IN TODAY. SHE STATES ADVANCE DIRECTIVE NEEDS TO BE UPDATED. OFFERED TO COMPLETE ON WITH PT TOMORROW WHEN SHE COMES IN. SHE WAS AGREEABLE TO THIS PLAN. PT LIVES OUT OF [facility]. WILL CALL [facility] TO SEE IF HE IS CURRENTLY BEING FOLLOWED BY THERE DEPARTMENT.
--- NOTE | 2024-12-09 12:41 | NUR ---
LEVOPHED DURING DIALYSIS PT RECEIVING DIALYSIS, BP TRENDING DOWN. 66/55 LOW, LEVOPHED GTT INFUSING AT 5 MCG/MIN TO MAINTAIN MAP >65. DIALYSIS CONTINUES.
[2024-12-09] MEDS ORDERED: Cefepime HCl 1,000 MG in NS 100 ML IV SCH (15:00)
[2024-12-09] MEDS ORDERED: Vancomycin (Pharmacy Consult) IV SCH (15:00)
[2024-12-09] MEDS ORDERED: Trimethoprim/Sulfamethoxazole DS Tab PO SCH (16:00)
--- NOTE | 2024-12-09 17:52 | NUR ---
END OF SHIFT NOTE: NO ACUTE AFTERNOON EVENTS. PT WAS ABLE TO BE TITRATED OFF LEVOPHED GTT & MAINTAIN MAP >65. SEE FLOWSHEET FOR TITRATIONS. SPO2 LOW 90'S ON 12L VIA NC. PRODUCTIVE COUGH CONTINUES, SPUTUM SAMPLE SENT PER ORDERS. PT ABLE TO SELF-SUCTION. HR 90-110'S, SINUS TACH ON MONITOR. AFEBRILE. NO URINARY VOIDS THIS SHIFT, THOUGH APPROX 2L REMOVED DURING DIALYSIS TODAY. NO BM'S. MINIMAL PO INTAKE, PT REPORTS LACK OF APPETITE. PIV TO R AC & L WRIST. PERMACATH TO R CHEST. PT SITTING UP IN BED W/ CALL LIGHT IN REACH.
[2024-12-10] VITALS (28 sets, daily range): BP systolic 96–146; BP diastolic 61–102
[2024-12-10 03:34] LABS: BASOPHILS ABSOLUTE AUTO 0.00 K/mm3 (0.00-0.23); BASOPHILS PERCENT AUTO 0 % (0-2); EOSINOPHILS ABSOLUTE AUTO 0.00 K/mm3 (0.00-0.68); EOSINOPHILS PERCENT AUTO 0 % (0-6); Hematocrit 23.4 % (37.0-53.0); Hemoglobin 7.4 g/dL (13.5-17.5); IMMATURE GRAN ABSOLUTE AUTO 0.01 K/mm3 (0.00-0.10); IMMATURE GRAN PERCENT AUTO 0 % (0-1); LYMPHOCYTES ABSOLUTE AUTO 0.49 K/mm3 (0.84-5.20); LYMPHOCYTES PERCENT AUTO 15 % (21-46); MONOCYTES ABSOLUTE AUTO 0.11 K/mm3 (0.16-1.47); MONOCYTES PERCENT AUTO 3 % (4-13); Mean Corpuscular HGB Conc 31.6 g/dL (31.5-36.5); Mean Corpuscular Volume 90 fL (80-100); NEUTROPHILS ABSOLUTE AUTO 2.69 K/mm3 (1.96-9.15); NEUTROPHILS PERCENT AUTO 82 % (41-73); NRBC ABSOLUTE 0.00 K/mm3 (0.00-0.02); NRBC Auto 0.0 /100 WBC (0.0-0.2); Platelet Count 59 K/mm3 (150-400); RDW Coefficient Variation 18.0 % (11.7-14.2); RDW Standard Deviation 59.1 fL (35.1-46.3)
[2024-12-10 04:01] LABS: Albumin, Blood 2.9 g/dL (3.4-5.0); Anion Gap 13 mmol/L (3-11); Blood Urea Nitrogen 80 mg/dL (8-24); CO2, Blood 28 mmol/L (21-32); Calcium, Blood 8.7 mg/dL (8.5-10.1); Chloride, Blood 97 mmol/L (98-108); Creatinine, Blood 7.41 mg/dL (0.60-1.20); Glucose, Blood 99 mg/dL (70-99); Magnesium, Blood 2.4 mg/dL (1.6-2.4); Phosphorus, Blood 6.7 mg/dL (2.5-4.9); Potassium, Blood 4.5 mmol/L (3.5-5.5); Sodium, Blood 133 mmol/L (136-145); Vancomycin, Random 24.9 ug/mL
--- NOTE | 2024-12-10 04:58 | NUR ---
SHFT SUMMARY PT A/OX4, PLEASANT AND COOPERATIVE WITH CARE. ON 12L HFNC, SATS > 94%, DESATS INTO 70'S WITH MINIMAL ACTIVTY AND TAKES EXTENDED BETH ETO RECOVER. L/S CLEAR AND DIM T/O. BREATHING TX GIVEN BY RT. NRS ON MONITOR, HR 70'S, SBP 110-120'S, NO C/O CP. PT DID NOT VOID TONIGHT BUT STATES THAT IS NORMAL FOR HIM R/T DIALYSIS. PT IS SALINE LOCKED. WAS ABLE TO SLEEP T/O MOST OF THE NIGHT. NO ACUTE EVENTS. CALL LIGHT IN REACH.
[2024-12-10] MEDS ORDERED: ATOVAQUONE 750 MG/5 ML PO SCH (09:00)
--- NOTE | 2024-12-10 10:00 | NUR ---
AM NOTE: THIS RN ASSUMED CARE OF PT AT APPROX 0700, BEDSIDE REPORT FROM NOC RN. PT A/OX4, ABLE TO MAKE NEEDS KNOWN & PARTICIPATE IN CARE. HR 70-80'S, SINUS RHYTHM W/ PAC'S ON MONITOR. BP STABLE, MAP >65. SPO2 >90% ON 12L VIA NC, UP TO 15L TO RECOVER W/ EXERTION. UNSURE IF PT TO RECEIVE DIALYSIS THIS MORNING, AWAITING CONFIRMATION FROM NEPHROLOGY. PIV TO RAC/L WRIST SALINE LOCKED. ABLE TO EAT APPROX 50% OF BREAKFAST THIS MORNING. NO OTHER NEEDS AT THIS TIME. CALL LIGHT IN REACH.
--- NOTE | 2024-12-10 12:06 | NUR ---
UPDATE: THIS RN AT PT'S BEDSIDE DUE TO DESATURATION TO 60'S. PT NOTED TO BE TACHYPNEIC, DYSPNEIC, & EXPRESSING DIFFICULTY BREATHING. PT ON 15L DURING DESATURATION. SATURATION NOT IMPROVING. PT PLACED ON AIRVO 40 LPM 56% FIO2. RT [place] AT BEDSIDE. PT SATURATION IMPROVED TO >90% ON AIRVO. CARE CONTINUES.
--- NOTE | 2024-12-10 17:13 | NUR ---
END OF SHIFT NOTE: NO ADDITIONAL ACUTE EVENTS THIS SHIFT - SEE PREVIOUS NOTES FOR UPDATES. PT REMAINS ON AIRVO 40 LPM 45% FIO2 W/ SPO2 >90%. COUGH PERSISTS. LEVOPHED GTT REMAINS OFF ALL SHIFT, NO DIALYSIS TODAY PER DR. HALEY. PLANS FOR DIALYSIS TOMORROW. HR 80'S, SINUS RHYTHM ON MONITOR. BP STABLE, MAP >65. NO URINE OUTPUT THUS FAR. PIV X2 SALINE LOCKED. PERMACATH TO R CHEST. PCU STATUS AT THIS TIME. CALL LIGHT IN REACH.
[2024-12-10] MEDS ORDERED: Amylase/Lipase/Protease DR Cap 12,000 PO ONE (18:10)
[2024-12-11] VITALS (44 sets, daily range): BP systolic 66–133; BP diastolic 49–93
[2024-12-11 04:39] LABS: BASOPHILS ABSOLUTE AUTO 0.01 K/mm3 (0.00-0.23); BASOPHILS PERCENT AUTO 0 % (0-2); EOSINOPHILS ABSOLUTE AUTO 0.00 K/mm3 (0.00-0.68); EOSINOPHILS PERCENT AUTO 0 % (0-6); Hematocrit 22.1 % (37.0-53.0); Hemoglobin 6.9 g/dL (13.5-17.5); IMMATURE GRAN ABSOLUTE AUTO 0.04 K/mm3 (0.00-0.10); IMMATURE GRAN PERCENT AUTO 1 % (0-1); LYMPHOCYTES ABSOLUTE AUTO 0.50 K/mm3 (0.84-5.20); LYMPHOCYTES PERCENT AUTO 9 % (21-46); MONOCYTES ABSOLUTE AUTO 0.35 K/mm3 (0.16-1.47); MONOCYTES PERCENT AUTO 6 % (4-13); Mean Corpuscular HGB Conc 31.2 g/dL (31.5-36.5); Mean Corpuscular Volume 90 fL (80-100); NEUTROPHILS ABSOLUTE AUTO 4.78 K/mm3 (1.96-9.15); NEUTROPHILS PERCENT AUTO 84 % (41-73); NRBC ABSOLUTE 0.00 K/mm3 (0.00-0.02); NRBC Auto 0.0 /100 WBC (0.0-0.2); Platelet Count 83 K/mm3 (150-400); RDW Coefficient Variation 18.4 % (11.7-14.2); RDW Standard Deviation 60.2 fL (35.1-46.3)
--- NOTE | 2024-12-11 05:00 | NUR ---
SHIFT SUMMARY PT A/OX4, MAKES NEEDS KNOWN, COOPERATIVE WITH CARE. HR 60-80'S, BP STABLE, SINUS RHYTHM. ON AIRVO- 40L, 54% FIO2. SATS >96%. HE DOES DESAT WITH MINIMAL ACTIVITY AND IT TAKES HIM A WHILE FOR HIS SATS TO RECOVER. PT ASPIRATED ON HIS SALIVA, WAS ABLE TO COUGH AND CLEAR HIS AIRWAY BUT TOOK HIM A WHILE. PT DID NOT HAVE BM THIS SHIFT, PASSING TO [facility] ABOUT GETTING BOWEL REGIMEN ON BOARD. PT HAS NOT VOIDED THIS SHIFT BUT REPORTS BASELINE R/T DIALYSIS. PLAN IS TO DIALYZE ON DAY SHIFT. NO ACUTE EVENTS. CALL LIGHT IN REACH.
[2024-12-11 05:27] LABS: Magnesium, Blood 2.7 mg/dL (1.6-2.4)
[2024-12-11 05:57] LABS: Albumin, Blood 2.7 g/dL (3.4-5.0); Anion Gap 18 mmol/L (3-11); Blood Urea Nitrogen 120 mg/dL (8-24); CO2, Blood 23 mmol/L (21-32); Calcium, Blood 8.5 mg/dL (8.5-10.1); Chloride, Blood 95 mmol/L (98-108); Creatinine, Blood 10.00 mg/dL (0.60-1.20); Glucose, Blood 305 mg/dL (70-99); Phosphorus, Blood 8.7 mg/dL (2.5-4.9); Potassium, Blood 4.9 mmol/L (3.5-5.5); Sodium, Blood 131 mmol/L (136-145); Vancomycin, Random 23.1 ug/mL
[2024-12-11] MEDS ORDERED: Amylase/Lipase/Protease DR Cap 12,000 PO SCH (08:30)
[2024-12-11] MEDS ORDERED: Polyethylene Glycol 3350 17 gm PO SCH (09:00)
--- NOTE | 2024-12-11 19:11 | NUR ---
SHIFT SUMMARY PT REMAINS ALERT AND FOLLOWING DIRECTIONS. HR IS SINUS IN THE 70S-90S. SATS >90% ON AIRVO 45L/55% FIO2. RESPIRATIONS EVEN AND UNLABORED. PT WENT TO DIALYSIS TODAY WITH 1600 ML OFF. BP WAS SOFT FOLLOWING DIALYSIS AND IS NOW STABLE WITH MAP >65. PT RECEIVED 1 UNIT PRBC IN DIALYSIS. PT HAD BM X2 THIS SHIFT AND NO URINE OUTPUT -PER PT REPORT THIS IS BASELINE WITH DIALYSIS. DENIES UNMET NEEDS AT THIS TIME, CALL LIGHT WITHIN REACH.
--- NOTE | 2024-12-11 21:50 | NUR ---
ASSUMPTION OF CARE: ASSUMED CARE OF PT AT 1900. PT ALERT AND ORIENTED. FOLLOWS DIRECTION AND MAKES NEEDS KNOWN. PT NOTICEABLY SOB WITH EXERTION, HR INCREASES AND SPO2 DECREASES. PT STATES HE FEELS SOB WHEN MOVING. STATES HE IS COMFORTABLE AT REST. ON AIRVO WITH SETTINGS 45L, 49%. SPO2 CURRENTLY >90%. LUNGS COARSE/DIM. PT HAVING THICK, SECRETIONS. HEALTHCARE ANALYST IN PLACE, SR WITH HR 90'S. INCREASES TO THE 100'S WITH ACTIVITY. DENIES CP. NO C/O PAIN T/O. PT STATES HE MAKES LITTLE TO NO URINE. PT HAVING MUTLIPLE BM'S THIS SHIFT. ABLE TO USE THE BEDPAN WITH ASSIST. TOLERATING PO INTAKE. HAS GENERALIZED BRUISING/SCABS T/O. PIVS INTACT AND SALINE LOCKED. BED LOCKED CALL LIGHT IN REACH.
[2024-12-12] VITALS (20 sets, daily range): BP systolic 110–148; BP diastolic 71–95
[2024-12-12 04:06] LABS: BASOPHILS ABSOLUTE AUTO 0.00 K/mm3 (0.00-0.23); BASOPHILS PERCENT AUTO 0 % (0-2); EOSINOPHILS ABSOLUTE AUTO 0.00 K/mm3 (0.00-0.68); EOSINOPHILS PERCENT AUTO 0 % (0-6); Hematocrit 24.2 % (37.0-53.0); Hemoglobin 7.6 g/dL (13.5-17.5); IMMATURE GRAN ABSOLUTE AUTO 0.01 K/mm3 (0.00-0.10); IMMATURE GRAN PERCENT AUTO 0 % (0-1); LYMPHOCYTES ABSOLUTE AUTO 0.43 K/mm3 (0.84-5.20); LYMPHOCYTES PERCENT AUTO 11 % (21-46); MONOCYTES ABSOLUTE AUTO 0.37 K/mm3 (0.16-1.47); MONOCYTES PERCENT AUTO 9 % (4-13); Mean Corpuscular HGB Conc 31.4 g/dL (31.5-36.5); Mean Corpuscular Volume 90 fL (80-100); NEUTROPHILS ABSOLUTE AUTO 3.13 K/mm3 (1.96-9.15); NEUTROPHILS PERCENT AUTO 79 % (41-73); NRBC ABSOLUTE 0.00 K/mm3 (0.00-0.02); NRBC Auto 0.0 /100 WBC (0.0-0.2); Platelet Count 76 K/mm3 (150-400); RDW Coefficient Variation 18.4 % (11.7-14.2); RDW Standard Deviation 58.6 fL (35.1-46.3)
[2024-12-12 04:27] LABS: Magnesium, Blood 2.3 mg/dL (1.6-2.4)
[2024-12-12 04:42] LABS: Albumin, Blood 2.6 g/dL (3.4-5.0); Anion Gap 10 mmol/L (3-11); Blood Urea Nitrogen 62 mg/dL (8-24); CO2, Blood 31 mmol/L (21-32); Calcium, Blood 8.3 mg/dL (8.5-10.1); Chloride, Blood 101 mmol/L (98-108); Creatinine, Blood 5.89 mg/dL (0.60-1.20); Glucose, Blood 155 mg/dL (70-99); Potassium, Blood 4.1 mmol/L (3.5-5.5); Sodium, Blood 138 mmol/L (136-145); Vancomycin, Random 14.6 ug/mL
[2024-12-12 04:47] LABS: Phosphorus, Blood 5.5 mg/dL (2.5-4.9)
--- NOTE | 2024-12-12 05:25 | NUR ---
SHIFT SUMMARY: PT ABLE TO REST. REMAINS ON AIRVO, 45L, 48% FIO2. SPO2 >94%. DENIES SOB AT REST. REMAINS IN SR WITH HR 70-80'S. SBP 100-130'S. DENIES CP. BLOOD GLUCOSE LOW THIS AM, GIVEN AN AMP OF D50 PER DR. MENDEZ. PT WAS ASYMPTOMATIC WITH LOW GLUCOSE. PT TOLERATING PO AND ENCOURAGED TO EAT AND DRINK. PIVS REMAIN PATENT AND SALINE LOCKED. DIALYSIS PORT TO RIGHT CHEST WALL C/D/I. PT MADE NO URINE THIS SHIFT. PT HAVING MULTIPLE BOWEL MOVEMENTS IN THE BEDPAN. REMAINS PCU STATUS OVERNIGHT. BED LOCKED, CALL LIGHT IN REACH.
--- NOTE | 2024-12-12 07:00 | NUR ---
ASSUMPTION OF CARE PT IS ALERT AND ORIENTED. PARTICIPATES IN CONVERSATION AND CARE. HE IS ON AIRVO 45L/55%. PT DOES DESATURATE WITH EXERTION. SINUS ON MONITOR, MAP >65. PT STS HIS CONTINUOUS GLUCOSE MONITOR IS ALARMING FOR VALUE IN THE 40S. CHECKED WITH GLUCOMETER, GLUCOSE 53. PT PROVIDED APPLE JUICE AND BREAKFAST TRAY. APPROX 25MIN LATER PT STS CGM IS REGISTERING LOWER. RECHECKED AND GLUCOSE 38. PT GIVEN 1 AMP D50 AND ENCOURAGED TO CONTINUE EATING BREAKFAST. HOSPITALIST AWARE AND PLAN TO RE-EVALUATE INSULIN REGIMEN. PT ASYMPTOMATIC DURING THIS TIME BUT REPORTS "NEVER KNOWING WHEN ITS LOW, JUST WHEN IT ALERTS" HIM. RECHECK GLUCOSE 145. PT'S PIV TENDER, REMOVED AND POWERGLIDE PLACED BY RENAL DIALYSIS RN. BED IN LOW POSITION, CALL LIGHT AND YANKEUR WITHIN REACH.
[2024-12-12] MEDS ORDERED: Dextrose 50% 50 ML Vial ONE (08:04)
[2024-12-12] MEDS ORDERED: Insulin Glargine-Yfgn 100 Unit/mL 3 ML SYR SC ONE (08:50)
[2024-12-12] MEDS ORDERED: Insulin Glargine 100 Unit/ML 3 ML SYR SC ONE (09:00)
--- NOTE | 2024-12-12 10:23 | NUR ---
Spiritual Care Visit. Pt. is resting in bed, but responds when I come to bedside. This cardiac care nurse has seen this Pt. in the past, so rapport is re-established and an update is facilitated. Pt. displays evidence of being aware and engaged with his treatment, and is realisticly hopefull. Pt. verbalizes that his spouse is a great support. Considered matters of rohan and belief. Prayed with the Pt. Pt. verbalized gratitude for the spiritual care visit and welcomed this cardiac care nurse to return.
[2024-12-12] MEDS ORDERED: Insulin Glargine 100 Unit/ML 3 ML SYR SC SCH (12:00)
[2024-12-12] MEDS ORDERED: Insulin Human Lispro 100 Units/ML 3ML Syringe SC SCH (12:30)
--- NOTE | 2024-12-12 17:04 | NUR ---
SHIFT SUMMARY PATIENT IS A&OX4 AND ABLE TO MAKE NEEDS KNOWN USING CALL LIGHT. PATIENT CAN SPONTANEOUSLY MOVE ALL LIMBS AND PARTCIPATES IN CARE. PATIENT IS ON 6L 02 VIA NC WITH SPO2 >94%. HR SINUS INN THE 70S-80S. BP STABLE WITH MAPS >65. PATEINT USED URINAL IND WITH 420 MLS OF DARK YELLOW URINE OUT. PATIENT USED BEDPAN AND HAD ONE BM THIS SHIFT. PATIENT DESATS WITH MOVEMENT, BUT REQUESTED TO NOT PUT THE AIRVO BACK ON AND INSTEAD SLOWLY RECOVER AFTER MOVING. PATIENT WAS UP TO THE CHAIR WITH MIN ASSIST TODAY. AT BEDSIDE UPDATED ON PLAN OF CARE. CALL LIGHT NEAR. NO ACUTE CHANGES.
[2024-12-12] MEDS ORDERED: Insulin NPH 100 Unit / ML 10ML Vial SC SCH (21:00)
--- NOTE | 2024-12-12 22:05 | NUR ---
ASSUMPTION OF CARE/TRANSFER OF CARE CARE OF PT ASSUMED AT 1999 FOLLOWING BEDISIDE SHIFT REPORT FROM RN. PT LYING IN BED IN NO APPARENT DISTRESS, WEARING 6L NC WITH SATURATION IN THE 90'S. AFEBRILE, SINUS RHYTHM AND STABLE BP. PT ON 6L NC AT FIRST, THEN HE ASKED TO USE TH ETOILET. DURING THE EVENT PT DESATURATED AND STARTED FEELING VERY WEAK AND SOB SO HE WAS PUT BACK ON AIRVO 45L/MIN AND 60% FIO2. HE WAS BROUGHT BACK TO BED AFTER STABALIZATION AND THEN TITRATED DOWN AND BACK TO 6L NC BY 2209. AT 221, PT DENIES SOB, CHEST PAIN/PRESSURE, AB PAIN, N/V. WILL REVIEW CONTINUE PLAN OF CARE.
[2024-12-13] VITALS (34 sets, daily range): BP systolic 92–172; BP diastolic 68–92
[2024-12-13 03:34] LABS: BASOPHILS ABSOLUTE AUTO 0.00 K/mm3 (0.00-0.23); BASOPHILS PERCENT AUTO 0 % (0-2); EOSINOPHILS ABSOLUTE AUTO 0.01 K/mm3 (0.00-0.68); EOSINOPHILS PERCENT AUTO 0 % (0-6); Hematocrit 23.3 % (37.0-53.0); Hemoglobin 7.3 g/dL (13.5-17.5); IMMATURE GRAN ABSOLUTE AUTO 0.02 K/mm3 (0.00-0.10); IMMATURE GRAN PERCENT AUTO 1 % (0-1); LYMPHOCYTES ABSOLUTE AUTO 0.42 K/mm3 (0.84-5.20); LYMPHOCYTES PERCENT AUTO 11 % (21-46); MONOCYTES ABSOLUTE AUTO 0.24 K/mm3 (0.16-1.47); MONOCYTES PERCENT AUTO 6 % (4-13); Mean Corpuscular HGB Conc 31.3 g/dL (31.5-36.5); Mean Corpuscular Volume 91 fL (80-100); NEUTROPHILS ABSOLUTE AUTO 3.05 K/mm3 (1.96-9.15); NEUTROPHILS PERCENT AUTO 82 % (41-73); NRBC ABSOLUTE 0.00 K/mm3 (0.00-0.02); NRBC Auto 0.0 /100 WBC (0.0-0.2); Platelet Count 70 K/mm3 (150-400); RDW Coefficient Variation 17.8 % (11.7-14.2); RDW Standard Deviation 58.4 fL (35.1-46.3)
[2024-12-13 03:49] LABS: Albumin, Blood 2.5 g/dL (3.4-5.0); Anion Gap 13 mmol/L (3-11); Blood Urea Nitrogen 74 mg/dL (8-24); CO2, Blood 28 mmol/L (21-32); Calcium, Blood 8.1 mg/dL (8.5-10.1); Chloride, Blood 97 mmol/L (98-108); Creatinine, Blood 7.21 mg/dL (0.60-1.20); Glucose, Blood 197 mg/dL (70-99); Magnesium, Blood 2.2 mg/dL (1.6-2.4); Phosphorus, Blood 6.2 mg/dL (2.5-4.9); Potassium, Blood 5.0 mmol/L (3.5-5.5); Sodium, Blood 133 mmol/L (136-145)
[2024-12-13 06:43] LABS: CYCLOSPORINE A BY HPLC-MS/MS 165.4 ng/mL
--- NOTE | 2024-12-13 06:55 | NUR ---
SHIFT SUMMARY PT LYING IN BED IN NO APPARENT DISTRESS. ALERT AND ORIENTED TO ALL. AFEBRILE. PT WEAK BUT CAN STAND AND WALK. DYSPNEA ON EXERTION. ONE SERIOUS EPISODE OF DESATURATION AND WEAKNESS EARLY IN SHIFT. SEE ASSUMPTION OF CARE NOTE. PT IN SINUS RHYTHM ALL SHIFT IN THE 70'S WITH STABLE TO MILDY ELEVATED BP. PT ON 6L HFNC WITH SAT > 92% AND NO SOB WHILE RESTING. ALSO NO EPISODES OF CHEST PAIN/PRESSURE DURING SHIFT. ONE EXTRA LARGE BM, BROWN AND FORMED, EARLY IN SHIFT. NO RECORDED URINE OUTPUT. NO PAIN ISSUES DURING SHIFT. PT SALINE LOCKED. BEDSIDE SHIFT REPORT GIVEN TO DAY RN.
[2024-12-13] MEDS ORDERED: Albumin (Human) 25gm/100ml 100 ML IV ONE (07:25)
--- NOTE | 2024-12-13 10:59 | NUR ---
ASSUMED CARE: ASSUMED CARE OF PT AT 0700, PT IS ALERT AND ORIENTED X 4 ABLE TO COMMUNICATE NEEDS. PT DENIES PAIN AT THIS TIME. PT ON 6L OF OXYGEN VIA HFNC. DURING ACTIVITY PT DESATURATES REQUIRING AIRVO AT 45L 60-70% FIO2 TO RECOVER. PT HAS PRODUCTIVE COUGH, THIN YELLOW SECRETIONS NOTED. PT IN SR WITH HR IN THE 70'S, BP STABLE, PT DENIES CP. PT TOLERATING PO INTAKE. PT USING URINAL AT BEDSIDE WITH MINIMAL ASSISTANCE. PT TO DIALYSIS AT 0830, PLACED ON AIRVO AND REMOTE CARDIAC/SPO2 MONITORING. PLAN OF CARE ONGOING
--- NOTE | 2024-12-13 12:37 | NUR ---
UPDATE: PT BACK FROM DIALYSIS AT 1215. PT A/O X 4, ABLE TO COMMUNICATE NEEDS. PT TRANSPORTED ON 10L OF OXYGEN VIA HFNC TO MAINTAIN SPO2 ABOVE 92% PT PLACED ON AIRVO WHEN BACK TO THE ROOM D/T SPO2 DROPPING TO 82% WHILE COUGHING. CURRENT AIRVO SETTINGS 40L, FI02 65%, SPO2 94% BED AT LOWEST LEVEL, CALL LIGHT WITHIN REACH.
[2024-12-13 13:08] LABS: Influenza A, PCR NEGATIVE (NEGATIVE); Influenza B, PCR NEGATIVE (NEGATIVE); Resp Syncytial Virus, PCR NEGATIVE (NEGATIVE); SARS-Cov-2 (COVID-19) PCR, MMC NEGATIVE (NEGATIVE)
[2024-12-13] MEDS ORDERED: NS 250 ML IV PRN (14:35)
[2024-12-13] MEDS ORDERED: Lidocaine 2% Viscous Soln 20 ML,Nystatin 100,000 Unit/ml Susp 20 ML,Mag Hydrox/Al Hydro... MT SCH (17:00)
--- NOTE | 2024-12-13 17:19 | NUR ---
SHIFT SUMMARY: PT IS ALERT AND ORIENTED X 4, ABLE TO COMMUNICATE NEEDS. PT REMAINS ON AIRVO WITH SETTINGS AT 45L FIO2 50% SPO2 BETWEEN 92-98% DEPENDING ON ACTIVITY. PT IN SR-ST WITH HR BETWEEN 90-110, BP STABLE. PT HAD DIALYSIS TODAY, PERMA-CATH SITE DRESSING C/D/I. PT TOLERATING PO INTAKE W/O COMPLICATIONS. NO NAUSEA/NO BM THIS SHIFT, HELD BOWEL CARE MEDS PER PT REQUESTED STATING HE HAS LOOSE STOOLS. PT USED THE URINAL X 1 THIS SHIFT, TEA COLORED URINE NOTED, 400ML OUTPUT. PLAN OF CARE ONGOING, CALL LIGHT WITHIN REACH.
--- NOTE | 2024-12-13 18:37 | NUR ---
Spiritual Care Visit. Pt. is sitting up in bed working with his laptop when he welcomes my visit. Pt. verbalized details of his day as well as a personal assessment that he may always need assisted care because of his resperatory requirements. Listen with emapthy and pursued the spiritual impact of the Pts. assessment. Pt. displays evidence of great rohan and a realistic confidence. Prayed with the Pt. Pt. verbalized gratitude for the spiritual care visit.
[2024-12-14 03:41] VITALS: BP 162/87
[2024-12-14 04:24] LABS: BASOPHILS ABSOLUTE AUTO 0.01 K/mm3 (0.00-0.23); BASOPHILS PERCENT AUTO 0 % (0-2); EOSINOPHILS ABSOLUTE AUTO 0.03 K/mm3 (0.00-0.68); EOSINOPHILS PERCENT AUTO 1 % (0-6); Hematocrit 24.1 % (37.0-53.0); Hemoglobin 7.6 g/dL (13.5-17.5); IMMATURE GRAN ABSOLUTE AUTO 0.03 K/mm3 (0.00-0.10); IMMATURE GRAN PERCENT AUTO 1 % (0-1); LYMPHOCYTES ABSOLUTE AUTO 0.25 K/mm3 (0.84-5.20); LYMPHOCYTES PERCENT AUTO 6 % (21-46); MONOCYTES ABSOLUTE AUTO 0.18 K/mm3 (0.16-1.47); MONOCYTES PERCENT AUTO 5 % (4-13); Mean Corpuscular HGB Conc 31.5 g/dL (31.5-36.5); Mean Corpuscular Volume 92 fL (80-100); NEUTROPHILS ABSOLUTE AUTO 3.48 K/mm3 (1.96-9.15); NEUTROPHILS PERCENT AUTO 87 % (41-73); NRBC ABSOLUTE 0.00 K/mm3 (0.00-0.02); NRBC Auto 0.0 /100 WBC (0.0-0.2); Platelet Count 69 K/mm3 (150-400); RDW Coefficient Variation 17.8 % (11.7-14.2); RDW Standard Deviation 59.2 fL (35.1-46.3)
[2024-12-14 04:45] LABS: Albumin, Blood 2.9 g/dL (3.4-5.0); Anion Gap 9 mmol/L (3-11); Blood Urea Nitrogen 48 mg/dL (8-24); CO2, Blood 33 mmol/L (21-32); Calcium, Blood 8.2 mg/dL (8.5-10.1); Chloride, Blood 98 mmol/L (98-108); Creatinine, Blood 4.77 mg/dL (0.60-1.20); Glucose, Blood 100 mg/dL (70-99); Magnesium, Blood 2.1 mg/dL (1.6-2.4); Phosphorus, Blood 3.9 mg/dL (2.5-4.9); Potassium, Blood 4.5 mmol/L (3.5-5.5); Sodium, Blood 135 mmol/L (136-145)
--- NOTE | 2024-12-14 06:46 | NUR ---
NO ACUTE EVENTS OVERNIGHT. PT WAS TRANSFERRED FROM ICU TO PCU VIA BED. PT CAME TO PCU WEARING AIRVO 45L/50%. PT IS ALERT AND ORIENTED X 4. FOLLOWS COMMANDS. CALLS APPROPRIATELY. PT RECEIVED DIAYSIS YESTERDAY (12/13). 2.5L PULLED OFF. PT HAS RIGHT CHEST PERMACATH FOR DIALYSIS ACCESS. PT HAS LEFT UPPER ARM MIDLINE THAT DRAWS BACK BLOOD FOR LABS. PT IS OLIGURIC. PT HAS BEEN WEANED DOWN TO 8L BY RT. PT SPO2>92% ON 8L VIA HIGH AUNDREA NASAL CANNULA. BED LOCKED IN LOWEST POSITION. CALL LIGHT WITHIN REACH. PT HAS DYSPNEA ON EXERTION AND WILL DESAT. PT HAS A PRODUCTIVE COUGH THAT HE CLEARS SPUTUM WITH SUCTION AT THE BEDSIDE.
[2024-12-14 07:57] VITALS: BP 155/85
[2024-12-14 12:24] VITALS: BP 139/84
--- NOTE | 2024-12-14 14:24 | NUR ---
"Spiritual Care | Nurse request Called to tht room at the request of the Pts. nurse. Pt. displaying evidence of raw emotion and anxiety regarding his ongoing health deficits. Pt. displays evidence of being engaged, self aware, and realistic, though displays an evidence of raw emotion. Listen with empathy and pastoral care. Pt. verbalized gratitude for the nursing staff who have been challenging him to not give up. Facilitated more engagement about family and their role in his life. Prayed with the Pt. Pt. displayed evidence of reduced anxiety and verbalized gratitude for the spiritual care visit."
--- NOTE | 2024-12-14 14:38 | NUR ---
CHANGE IN CODE STATUS CONVERSATION: DR. HALEY CAME TO EVALUATE THE PT AND DISCUSSED CONSULTING THE TRANSPLANT TEAM ABOUT POSSIBLY HOLDING MYCOPHENOLATE SO THE PT HAS A CHANCE TO FIGHT THE ILLNESS EFFECTING HIS LUNGS AND BODY. DR. HALEY ASKED THE PT TO DISCUSS THIS WITH HIS WELL. AFTER DR. HALEY LEFT THE ROOM THE PT WAS VERY EMOTIONAL AND STATED "I DO NOT THINK I AM GOING TO MAKE IT OUT OF THE HOSPITAL". THIS RN HAD CONVERSATIONS ABOUT THE PTS OPTIMISM, FEELINGS, AND WANTS. THE PT WAS VERY EMTOIONAL AND CRYING AND AGREEDED TO HAVE SPIRITUAL CARE COME AND TALKE WITH THE PT. AFTER DREA, FROM SPIRITUAL CARE, LEFT THE ROOM. THE PT ASKED FOR THIS RN TO BE PRESENT WHEN HIS VISITS SO HE CAN TALK TO HER. THE PT'S , LETA, ARRIVED WHILE THIS RN WAS STILL AT THE BEDSIDE. THE PT STATED HE NEEDED TO TALK TO HER AND BEGAN CRYING AGAIN. LETA AND THIS RN BOTH SAT BESIDE THE PT. THE PT BEGAN BY TALKING ABOUT DR. TRIVEDI RECCOMENDATIONS. LETA REASSURED THE PT THAT HE HAS BEEN TAKEN OFF OF IT BEFORE AND IT IS OKAY IF THE TEAM PLANS TO DO THAT. THE PT WOULD LIKE TO TRY IT WELL IF THE TRANSPLANT TEAM IS AGREEABLE. THE PT THEN BEGAN TO SAY "THERE IS ONE MORE THING... I DO NOT WANT TO BE INTUBATED". THE PT WAS STILL CRYING AND THE REASSURED HIM THAT SHE RESPECTS HIS WISHES. THIS RN TALKED MORE WITH THE PT ABOUT HIS WISHES AND GAVIN FROM PALLIATIVE CARE WAS INFORMED OF THE PT'S DECISION TO SWITCH TO A DNR. GAVIN IS GOING TO COME AND SEE THE PT WHILE KATHARINE IS PRESENT. THIS RN CALLED DR. HALEY ABOUT THE PT'S AND LETA BEING AGREEABLE TO CHANGE MEDICATIONS IF NEEDED. ALSO, STACY RN DISCUSSED THE PT'S DESIRE TO BE A DNR. DR. HALEY IS WAITING FOR A CALL BACK FROMT HE TRANSPLANT TEAM AT THIS TIME AND STATED HE WILL UPDATE THIS RN WHEN HE CAN. SEE NOTES FOR ANY UDPATES.
[2024-12-14 16:24] VITALS: BP 153/93
--- NOTE | 2024-12-14 16:31 | NUR ---
PALLIATIVE CARE VISIT: PT KNOWN FROM PRIOR VISIT. MET WITH PT TO RE-EVALUATE GOC AND CODE STATUS DUE TO PROLONGED STAY AND SLOW TO IMPROVE. IS PRESENT. PT STATED HE WOULD WANT CHEST COMPRESSIONS IF HIS HEART WENT OUT BUT WOULD NOT WANT TO BE INTUBATED. BECAUSE OF HIS LUNGS. EDUCATED PT ON LIKELY OUTCOME IF PT HAD CHEST COMPRESSIONS WOULD BE INTUBATION. AND PT STATES THEY HAVE A PLAN IF HE ENDED UP BACK ON A VENTILATOR SHE WOULD ONLY KEEP HIM ON LONG ENOUGH FOR HIS CHILDREN TO SEE HIM TO SAY GOODBYE. PT IS IN AGREEMENT WITH THIS PLAN. HE IS TEARFUL THROUGH OUR CONVERSATION. RISKS OF CPR DISCUSSED AND PT WOULD WANT CPR DESPITE THE RISKS SO HIS FAMILY WOULD HAVE TIME TO SEE HIM ONE LAST TIME. ACCORDING TO PLAN IS TO STOP CELLCEPT TO SEE IF HIS IMMUNE SYSTEM CAN FIGHT WHATEVER IS CAUSING HIS SYMPTOMS. HE HAS STOPPED THIS MEDICATION IN THE PAST UP TO 2 MONTHS WITHOUT ADVERSE REACTION TO HIS LIVER TRANSPLANT. PT WOULD LIKE PALLIATIVE CARE OUTPATIENT SERVICES. PT STATES HE DOES NOT WANT HOSPICE YET. INFORMED HIM WE SENT REFERRAL TO [place] FOR PALLIATIVE CARE SERVICES ALREADY. BARRIERS TO CARE AT HOME ACCORDING TO PT IS NEED FOR O2 CONCENTRATOR THAT GOES UP TO 10 LPM. HE ALSO WOULD LIKE A HOSPITAL BED FOR COMFORT DUE TO HIS SOB. HE CANNOT LAY FLAT. UPDATED CM AND PRIMARY RN. DR. MELISSA PRESENT FOR PART OF THIS VISIT AND IS AWARE PT WANTS TO REMAIN A FULL CODE.
--- NOTE | 2024-12-14 18:10 | NUR ---
THIS RN TALKED TO DR. TERRAZAS ABOUT CBG 367. THIS RN DISCUSSED MEDICATIONS GIVEN THIS SHIFT AND THE PT'S CBG'S. DR. WELCH WANTED THE 9 UNITS ORDERED TO BE GIVEN, THEN WANTED THE PT'S 10 UNITS LANTUS GIVEN WITH DINNER SINCE IT WAS HELD THIS AM D/T CBG 99 AND HX OF HYPOGLYCEMIA THIS ADMISSION.
--- NOTE | 2024-12-14 18:47 | NUR ---
SHIFT SUMMARY PT IS A&0 X 4, COOPERATIVE W/ CARE, AND ABLE TO EXPRESS NEEDS. HE IS CURRENTLY ON 4L O2 NC AND SATTING IN 90s BUT HAS REQUIRED TITRATION BETWEEN 4-8 T/O SHIFT DUE TO FREQUENT DESATURATIONS WITH ANY TYPE OF ACTIVITY, EVEN JUST EATING. PT DESATTED LOW 60% ON 4L ON ONE OCCASION WHEN SOLDERER FURNACE WAS GETTING HIM UP TO CHAIR. AFTER A FEW MINUTES OF DEEP BREATHING WITH O2 UP AT 8L, PT WAS ABLE TO GET SATS BACK UP TO 90s. INCENTIVE SPIROMETER AND FLUTTER VALVE AT BEDSIDE AND FREQUENTLY USED. ON TELE, PT MAINTAINS SR 80s-100, BPs STABLE W/ MAP > 65. SEE PREVIOUS NOTES. PT HAS BEEN EMOTIONAL THIS AFTERNOON. PALLIATIVE, SPIRITUAL CARE, AND SAMIA RN DISCUSSED PATIENT'S WISHES AND FEELINGS W/ PT. PT WISHES TO REMAIN A FULL CODE AT THIS TIME. DR. HALEY STATED THAT PT WILL HAVE DIALYSIS TOMORROW. PT'S WAS AT BEDSIDE AND HAS BEEN UPDATED ON CARE. SEE NOTES FOR UPDATES.
[2024-12-14 20:45] VITALS: BP 141/83
[2024-12-14 23:56] VITALS: BP 167/95
[2024-12-15] VITALS (22 sets, daily range): BP systolic 101–174; BP diastolic 68–96
[2024-12-15 04:14] LABS: BASOPHILS ABSOLUTE AUTO 0.01 K/mm3 (0.00-0.23); BASOPHILS PERCENT AUTO 0 % (0-2); EOSINOPHILS ABSOLUTE AUTO 0.00 K/mm3 (0.00-0.68); EOSINOPHILS PERCENT AUTO 0 % (0-6); Hematocrit 23.6 % (37.0-53.0); Hemoglobin 7.3 g/dL (13.5-17.5); IMMATURE GRAN ABSOLUTE AUTO 0.03 K/mm3 (0.00-0.10); IMMATURE GRAN PERCENT AUTO 1 % (0-1); LYMPHOCYTES ABSOLUTE AUTO 0.34 K/mm3 (0.84-5.20); LYMPHOCYTES PERCENT AUTO 10 % (21-46); MONOCYTES ABSOLUTE AUTO 0.16 K/mm3 (0.16-1.47); MONOCYTES PERCENT AUTO 5 % (4-13); Mean Corpuscular HGB Conc 30.9 g/dL (31.5-36.5); Mean Corpuscular Volume 94 fL (80-100); NEUTROPHILS ABSOLUTE AUTO 3.04 K/mm3 (1.96-9.15); NEUTROPHILS PERCENT AUTO 85 % (41-73); NRBC ABSOLUTE 0.00 K/mm3 (0.00-0.02); NRBC Auto 0.0 /100 WBC (0.0-0.2); Platelet Count 60 K/mm3 (150-400); RDW Coefficient Variation 17.5 % (11.7-14.2); RDW Standard Deviation 59.3 fL (35.1-46.3)
[2024-12-15 04:45] LABS: Alanine Aminotransfer (ALT/SGP 19.0 U/L (12-78); Albumin, Blood 2.7 g/dL (3.4-5.0); Albumin/Globulin Ratio 1.1 (0.8-1.8); Anion Gap 11.0 mmol/L (3-11); Aspartate Aminotrans (AST/SGOT 14.0 U/L (12-37); Bilirubin, Total 1.2 mg/dL (0.1-1.0); Blood Urea Nitrogen 71.0 mg/dL (8-24); CO2, Blood 30.0 mmol/L (21-32); Calcium, Blood 8.7 mg/dL (8.5-10.1); Chloride, Blood 96.0 mmol/L (98-108); Creatinine, Blood 6.4 mg/dL (0.60-1.20); Globulin, Blood 2.4 g/dL (2.2-4.0); Glucose, Blood 358.0 mg/dL (70-99); Magnesium, Blood 2.3 mg/dL (1.6-2.4); Phosphorus, Blood 6.3 mg/dL (2.5-4.9); Potassium, Blood 4.9 mmol/L (3.5-5.5); Sodium, Blood 132.0 mmol/L (136-145); Total Protein, Blood 5.1 g/dL (6.4-8.2)
--- NOTE | 2024-12-15 06:30 | NUR ---
SHIFT SUMMARY PATIENT A/OX4. ON O2 @ 4L/MIN NC ALL NIGHT. PATIENT REINFORCED THAT HE DID NOT WANT AIRVO OR PAP VENTILATION. PATIENT ABLE TO SPEAK IN FULL SENTENCES AND TAKE MEDS WITH WATER. OCCASIONAL PRODUCTIVE COUGHING FITS WITH DESATTING TO MID 80'S THAT HE QUICKLY RECOVERED FROM. PATIENT VERBALIZED THAT HE WAS VERY TIRED FROM NOT SLEEPING THE PAST FEW DAYS. HE DID SLEEP WELL MOST OF THE NIGHT. VERY PLEASANT AND COOPERATIVE. CHG BATH DONE. DISCUSSED AM LABS - CRITICAL CO2 >45 AND ELEVATED BP WITH RESIDENT. PATIENT ABLE TO MAKE NEEDS KNOWN WITH CALL LIGHT IN REACH. PLAN OF CARE ONGOING.
[2024-12-15] MEDS ORDERED: Sod Ferric Gluc Complx/Sucrose 125 MG in NS 100 ML IV SCH (09:00)
[2024-12-15] MEDS ORDERED: Insulin Glargine 100 Unit/ML 3 ML SYR SC SCH (09:00)
[2024-12-15] MEDS ORDERED: PredniSONE Soln 5MG / 5ML 5ML BTL XX PRN (10:20)
[2024-12-15] MEDS ORDERED: Lidocaine 2% Viscous Soln 15 ML UDC MT PRN (12:00)
[2024-12-15] MEDS ORDERED: Insulin Human Lispro 100 Units/ML 3ML Syringe SC SCH (12:30)
[2024-12-15] MEDS ORDERED: Heparin Sodium,Porcine 5,000 UNIT/0.5 ML SDV SC SCH (16:00)
--- NOTE | 2024-12-15 18:42 | NUR ---
SHIFT SUMMARY PT IS A&O X4, ENGAGED WITH CARE, AND ABLE TO EXPRESS NEEDS. PT REQUIRES REPOSITIONING ASSISTANCE AT TIMES DUE TO HOW EASILY HE DESATS WITH ANY EXERTION. PT HAS BEEN ON 4L 02 NC T/O MAJORITY OF SHIFT BUT HAS REQUIRED TITRATION FROM 2-8L ON MULTIPLE OCCASIONS THIS SHIFT. PT IS AWARE THAT HE DESATS EASILY AND TAKES BREAKS TO DEEP BREATHE WHILE EATING OR TALKING ON PHONE. HR SR 70-90s W/ STABLE BPs. MAP > 65. PT HAD DIALYSIS TODAY, ABOUT 2L REMOVED. DR. GERARD ROUNDED ON PT THIS AM AND ADJUSTED PT'S INSULIN DOSE, NOW REQUIRING CARB COUNTING. PT RESTING IN BED AT THIS TIME. SEE NOTES FOR UPDATES.
--- NOTE | 2024-12-15 19:47 | NUR ---
ASSUMPTION OF CARE ASSUMED PT'S CARE AT 1900.PT SITTING UP IN BED USING LAPTOP.BEDSIDE REPORT COMPLETED,PLAN OF CARE REVIEWED.PT DENIES PAIN,DENIES SOB,DENIES NEEDS.PT ON 4L HFNC,OXYGEN SATURATION >92%.CALL LIGHT AND PT'S ITEMS WITHIN REACH.MONITORING ONGOING CAREPLAN.
[2024-12-16] VITALS (7 sets, daily range): BP systolic 136–176; BP diastolic 63–98
[2024-12-16 04:12] LABS: BASOPHILS ABSOLUTE AUTO 0.00 K/mm3 (0.00-0.23); BASOPHILS PERCENT AUTO 0 % (0-2); EOSINOPHILS ABSOLUTE AUTO 0.01 K/mm3 (0.00-0.68); EOSINOPHILS PERCENT AUTO 0 % (0-6); Hematocrit 24.2 % (37.0-53.0); Hemoglobin 7.5 g/dL (13.5-17.5); IMMATURE GRAN ABSOLUTE AUTO 0.04 K/mm3 (0.00-0.10); IMMATURE GRAN PERCENT AUTO 1 % (0-1); LYMPHOCYTES ABSOLUTE AUTO 0.35 K/mm3 (0.84-5.20); LYMPHOCYTES PERCENT AUTO 8 % (21-46); MONOCYTES ABSOLUTE AUTO 0.25 K/mm3 (0.16-1.47); MONOCYTES PERCENT AUTO 5 % (4-13); Mean Corpuscular HGB Conc 31.0 g/dL (31.5-36.5); Mean Corpuscular Volume 92 fL (80-100); NEUTROPHILS ABSOLUTE AUTO 3.99 K/mm3 (1.96-9.15); NEUTROPHILS PERCENT AUTO 86 % (41-73); NRBC ABSOLUTE 0.00 K/mm3 (0.00-0.02); NRBC Auto 0.0 /100 WBC (0.0-0.2); Platelet Count 66 K/mm3 (150-400); RDW Coefficient Variation 17.8 % (11.7-14.2); RDW Standard Deviation 59.4 fL (35.1-46.3)
[2024-12-16 04:27] LABS: Albumin, Blood 2.7 g/dL (3.4-5.0); Anion Gap 9 mmol/L (3-11); Blood Urea Nitrogen 50 mg/dL (8-24); CO2, Blood 33 mmol/L (21-32); Calcium, Blood 8.6 mg/dL (8.5-10.1); Chloride, Blood 99 mmol/L (98-108); Creatinine, Blood 4.49 mg/dL (0.60-1.20); Glucose, Blood 261 mg/dL (70-99); Magnesium, Blood 2.3 mg/dL (1.6-2.4); Phosphorus, Blood 3.9 mg/dL (2.5-4.9); Potassium, Blood 3.9 mmol/L (3.5-5.5); Sodium, Blood 137 mmol/L (136-145)
--- NOTE | 2024-12-16 06:36 | NUR ---
PT MONITORED DURING THE SHIFT,PT MAINTAINED OXYGEN SATURATION >92% ON 4L NC.OCCASIONALLY OXYGEN SATURATION DROPPED DOWN TO 85% WHILE COUGHING OR BLOWING NOSE.PT REQUIRED 6L BRIEFLY FOR SUCH MOMENTS TO KEEP OXYGEN SATURATION >90%.PT'S SBP 140'S-170'S.PT WIDE AWAKE THIS MORNING,DENIES PAIN,DENIES SOB,DENIES NEEDS.CALL LIGHT AND PT'S ITEM WITHIN REACH.MONITORING ONGOING PER CAREPLAN.
--- NOTE | 2024-12-16 12:11 | NUR ---
CALL TO DR. ELKINS ABOUT PERSISTENT HYPERTENSION THIS RN CALLED DR ELKINS TO NOTIFY HIM OF PTs PERSISTENT HYPERTENSION SO FAR THIS SHIFT DESPITE RECIEVING AMLODIPINE 5MG THIS AM, TYPICAL HOME DOSE. NOTIFIED OF 2 OTHER ANTIHYPERTENSIVES PT TYPICALLY TAKES AT HOME. DR ELKINS STATED THAT HE WILL LOOK AT PT'S CHART AND PLACE ORDERS. SEE NOTES FOR UPDATES.
[2024-12-16] MEDS ORDERED: Insulin Human Lispro 100 Units/ML 3ML Syringe SC SCH (12:30)
[2024-12-16] MEDS ORDERED: Insulin Human Lispro 100 Units/ML 3ML Syringe SC ONE (15:50)
--- NOTE | 2024-12-16 15:50 | NUR ---
CBG 388 THE PT CALLED STAFF INTO HIS ROOM BECAUSE HIS DEXCOM NOTIFIED HIM THAT HIS CBG WAS >400. TALA DURHAM CHECKED THE PT'S BLOOD SUGAR AND IT WAS 388. THIS RN CALLED DR. ELKINS AND DR. DORADO WANTED THE 5UNITS ORDERED PER SLIDING SCALE GIVEN WITH AND ADDITIONAL 5 UNITS NOW TO BE GIVEN. THEN HE WOULD LIKE US TO GIVE THE CARB COUTNING DOSE WHEN THE PT EATS DINNER. SEE NOTES FOR UPDATES.
[2024-12-16] MEDS ORDERED: Saline Nasal Spray 45 ML PRN (17:15)
--- NOTE | 2024-12-16 18:46 | NUR ---
SHIFT SUMMARY PT IS ALERT AND ORIENTED X 4, COOPERATIVE W/ CARE, AND ABLE TO EXPRESS NEEDS. PT STAYED IN BED T/O SHIFT DUE TO FRAGILE RESPIRATORY STATE EXACERBATED BY ANY ACTIVITY. PT SATTING IN 90S ON 4L O2 NC WITH MULTIPLE INSTANCES OF DESATTING INTO 80S, REQUIRING TEMPORARY TITRATIONS UP OF UP TO 7L TO RECOVER. PT IN SR 80S-90S. BPS WERE CONSISTENTLY ELEVATED THIS AM, PROVIDER NOTIFIED, NEW ORDERS IN PLACE. BPS STILL ELEVATED BUT TRENDING DOWN AND STABLE W/ MAPS OVER 65. PT BLOOD SUGARS ELEVATED THIS SHIFT, PROVIDER NOTIFIED, INSULIN ORDERS ALTERED AND PROVIDER ROUNDED ON PT TO DISCUSS. MEAT TRIMMER ALSO ROUNDED ON PT THIS SHIFT. PT TO RECIEVE DIALYSIS TOMORROW. FAMILY HAS BEEN AT BEDSIDE AND UPDATED ON CARE.
[2024-12-17] VITALS (23 sets, daily range): BP systolic 103–164; BP diastolic 72–97
[2024-12-17 05:14] LABS: BASOPHILS ABSOLUTE AUTO 0.01 K/mm3 (0.00-0.23); BASOPHILS PERCENT AUTO 0 % (0-2); EOSINOPHILS ABSOLUTE AUTO 0.02 K/mm3 (0.00-0.68); EOSINOPHILS PERCENT AUTO 0 % (0-6); Hematocrit 24.1 % (37.0-53.0); Hemoglobin 7.7 g/dL (13.5-17.5); IMMATURE GRAN ABSOLUTE AUTO 0.03 K/mm3 (0.00-0.10); IMMATURE GRAN PERCENT AUTO 1 % (0-1); LYMPHOCYTES ABSOLUTE AUTO 0.40 K/mm3 (0.84-5.20); LYMPHOCYTES PERCENT AUTO 9 % (21-46); MONOCYTES ABSOLUTE AUTO 0.29 K/mm3 (0.16-1.47); MONOCYTES PERCENT AUTO 6 % (4-13); Mean Corpuscular HGB Conc 32.0 g/dL (31.5-36.5); Mean Corpuscular Volume 92 fL (80-100); NEUTROPHILS ABSOLUTE AUTO 3.76 K/mm3 (1.96-9.15); NEUTROPHILS PERCENT AUTO 83 % (41-73); NRBC ABSOLUTE 0.00 K/mm3 (0.00-0.02); NRBC Auto 0.0 /100 WBC (0.0-0.2); Platelet Count 67 K/mm3 (150-400); RDW Coefficient Variation 17.7 % (11.7-14.2); RDW Standard Deviation 59.5 fL (35.1-46.3)
[2024-12-17 05:37] LABS: Albumin, Blood 2.6 g/dL (3.4-5.0); Anion Gap 11 mmol/L (3-11); Blood Urea Nitrogen 80 mg/dL (8-24); CO2, Blood 29 mmol/L (21-32); Calcium, Blood 8.3 mg/dL (8.5-10.1); Chloride, Blood 97 mmol/L (98-108); Creatinine, Blood 6.16 mg/dL (0.60-1.20); Glucose, Blood 198 mg/dL (70-99); Magnesium, Blood 2.0 mg/dL (1.6-2.4); Phosphorus, Blood 4.0 mg/dL (2.5-4.9); Potassium, Blood 4.4 mmol/L (3.5-5.5); Sodium, Blood 133 mmol/L (136-145)
--- NOTE | 2024-12-17 06:02 | NUR ---
SHIFT SUMMARY PT IS A&OX4 ABLE TO MAKE NEEDS KNOWN, PLEASENT AND COOPERATIVE W/ CARE. MOVES ALL EXTERMITIES IN BED, WILL REQUEST ASSISTANCE REPOSTIONING IF NEEDED. TELE IN PLACE SHOWING SR AT A RATE OF 73 CURRENTLY, DENIES CHEST PAIN/PRESSURE. BP ELAVATED DURING THE SHIFT PT ASYMPTOMATIC. PT DESATS W/ LITTLE ACTIVITY REQUIRING TIRATIONS OF UP TO 7L NC. IF ABLE TO NOEMY 4L NC MOST OF THE SHIFT. PT USING INSENTIVE SPIROMETER AND SUCTIONS SELF. PT TO RECIEVE DIALYSIS THIS AM. BED IN LOWEST POSTION, CALL LIGHT IN REACH. WILL REPORT ON ONCOMING RN.
[2024-12-17] MEDS ORDERED: Insulin Glargine 100 Unit/ML 3 ML SYR SC SCH (09:00)
[2024-12-17] MEDS ORDERED: Epoetin Alfa-EPBX 10,000 Unit/ML 1ML Vial SC SCH (16:00)
--- NOTE | 2024-12-17 17:49 | NUR ---
PALLIATIVE CARE VISIT: MET WITH PT AND SPOUSE KATHARINE IN THE ROOM FOR SUPPORTIVE VISIT. DR. WALTER AND DR. STRICKLAND IN ROOM DISCUSSING PROGNOSIS WITH PT. DISCUSSED CONCERNS WITH PT AND KATHARINE AFTER DOCTORS SPOKE TO THEM. GOC DISCUSSED. PT HAS SHIFTED NOW TO AGREEABLE TO DNR CODE STATUS. HE WANTS TO SEE IF ABX TREATMENT AND HOLDING CELLCEPT ALLOWS IMPROVEMENT OF HIS BREATHING/O2 NEEDS. IF IT DOES NOT IMPROVE AFTER ABX TREATMENT IS COMPLETED HE WILL GO HOME ON HOSPICE. IF BREATHING/O2 REQUIREMENTS IMPROVE HE WILL GO TO SNF TO RESUME DIALYSIS AND PHYSICAL THERAPY WITH GOAL TO RETURN HOME. END OF LIFE AND HOSPICE QUESTIONS ANSWERED. PT WOULD NEED HOSPITAL BED, BEDSIDE TABLE, O2 CONCENTRATOR TO 10 LPM, BSC. [facility] GO[facility] TO 5 LPM THAT WOULD NEED SWITCHED OUT. PT DOES NOT WANT HOSPICE AT [facility] OR [facility]. PT WISHES TO BE CREMATED. THEY HAVE QUESTIONS ABOUT WHO TO CONTACT ABOUT [facility]. NUMBER PROVIDED FOR [facility] ROOM ATTENDANT. UPDATED PRIMARY RN, DEYVI AND MD.
--- NOTE | 2024-12-17 19:24 | NUR ---
PT A&Ox4 AND ABLE TO MAKE NEEDS KNOWN. HE IS ON 4LNC W/O2 SATS > 92%. HE USES THE URINAL INDEPENDENTLY. HE WENT TO DIALYSIS TODAY AND THEY REMOVE 2.5L. NO OTHER NEEDS OR CONCERNS NOTED @ THIS TIME. BED IN LOW POSITION, CALL LIGHT AND PERSONAL BELONGINGS IN REACH.
[2024-12-18 05:14] VITALS: BP 142/84
[2024-12-18 05:29] LABS: BASOPHILS ABSOLUTE AUTO 0.01 K/mm3 (0.00-0.23); BASOPHILS PERCENT AUTO 0 % (0-2); EOSINOPHILS ABSOLUTE AUTO 0.02 K/mm3 (0.00-0.68); EOSINOPHILS PERCENT AUTO 0 % (0-6); Hematocrit 25.0 % (37.0-53.0); Hemoglobin 7.9 g/dL (13.5-17.5); IMMATURE GRAN ABSOLUTE AUTO 0.04 K/mm3 (0.00-0.10); IMMATURE GRAN PERCENT AUTO 1 % (0-1); LYMPHOCYTES ABSOLUTE AUTO 0.34 K/mm3 (0.84-5.20); LYMPHOCYTES PERCENT AUTO 7 % (21-46); MONOCYTES ABSOLUTE AUTO 0.23 K/mm3 (0.16-1.47); MONOCYTES PERCENT AUTO 5 % (4-13); Mean Corpuscular HGB Conc 31.6 g/dL (31.5-36.5); Mean Corpuscular Volume 92 fL (80-100); NEUTROPHILS ABSOLUTE AUTO 4.01 K/mm3 (1.96-9.15); NEUTROPHILS PERCENT AUTO 86 % (41-73); NRBC ABSOLUTE 0.00 K/mm3 (0.00-0.02); NRBC Auto 0.0 /100 WBC (0.0-0.2); Platelet Count 61 K/mm3 (150-400); RDW Coefficient Variation 17.9 % (11.7-14.2); RDW Standard Deviation 59.7 fL (35.1-46.3)
--- NOTE | 2024-12-18 05:47 | NUR ---
SHIFT SUMMARY NOC PT A&OX4 ABLE TO MAKE NEEDS KNOWN, PLEASANT AND COOPERATIVE W/ CARES. PT HAD A BED BATH AND LIEN CHANGED AT THE START OF SHIFT, CHG WIPES USED D/T POWERGLIDE TO THE LUE. HE WAS ABLE TO SLEEP FOR MOST OF THE NIGHT TONIGHT IN BETWEEN CARES. OXYGEN SATURATION DIPPED T THE LOW 80'S SEVERAL TIMES DURING THE NIGHT WITH LITTLE TO NO ACTIVITY, REQUIRING UP TO 8L NC. PT SUCTIONING SELF WHEN COUGHING UP SPUTUM. PT HAD LARGE BM DURING THE NIGHT WHILE HE WAS ASLEEP BUT ALERTED THIS RN WHEN HE AWOKE AND REALIZED THIS. BED CHANGE PROVIDED AND PT CLEANED UP. PT NOW SITTING UP IN BED ON PERSONAL LAPTOP. BED IN LOW, CALL LIGHT IN REACH. WILL REPORT TO ONCOMING RN.
[2024-12-18 05:51] LABS: Albumin, Blood 2.6 g/dL (3.4-5.0); Anion Gap 11 mmol/L (3-11); Blood Urea Nitrogen 48 mg/dL (8-24); CO2, Blood 32 mmol/L (21-32); Calcium, Blood 8.6 mg/dL (8.5-10.1); Chloride, Blood 98 mmol/L (98-108); Creatinine, Blood 4.17 mg/dL (0.60-1.20); Glucose, Blood 202 mg/dL (70-99); Magnesium, Blood 2.1 mg/dL (1.6-2.4); Phosphorus, Blood 3.6 mg/dL (2.5-4.9); Potassium, Blood 4.5 mmol/L (3.5-5.5); Sodium, Blood 136 mmol/L (136-145)
[2024-12-18 07:51] VITALS: BP 112/73
--- NOTE | 2024-12-18 07:59 | NUR ---
CALLED DR. STRICKLAND TO ROOM D/T PT BP BEING LOW AND O2 SATS TAKING A LONG TIME TO COME UP. BP AND O2 SATS CAME BACK UP TO WNL.
[2024-12-18 11:34] VITALS: BP 115/80
--- NOTE | 2024-12-18 14:51 | NUR ---
Spiritual Care Visit. Pt. welcomes this materials planning analyst when I came to bedside. Facilitated an update. Pt. verbalized that "he wants to go home." Pt. verbalized that he understands the palliative care status and that he is just waiting on hospice care to be set up at home. Listen with pastoral care and empathy. Prayed with the Pt. Pt. verbalized gratitude for th espiritual care visit and welcomed this materials planning analyst to return.
[2024-12-18 15:44] VITALS: BP 122/84
--- NOTE | 2024-12-18 17:14 | NUR ---
PT IS A&Ox4 AND ABLE TO MAKE NEEDS KNOWN. HE IS ON 3L SIMPLE MASK W/O2 SATS > 92%. HE IS A x1 ASSIST FOR OOB. BP'S HAVE BEEN SOFT TODAY, BUT ALL OTHER VS WNL. NO NEEDS OR CONCERNS NOTED @ THIS TIME. BED IN LOW POSITION, CALL LIGHT AND PERSONAL BELONGINGS IN REACH.
[2024-12-18] MEDS ORDERED: AL HYDROX MT SCH (18:00)
[2024-12-18] MEDS ORDERED: [UNRECOGNIZED DRUG - OTHER] MT SCH (18:00)
[2024-12-18] MEDS ORDERED: LIDOCAINE 2% MT SCH (18:00)
[2024-12-18] MEDS ORDERED: SIMETH DIPHENHYDRAMINE HCL MT SCH (18:00)
[2024-12-18] MEDS ORDERED: Lidocaine 2% Viscous Soln 20 ML,Nystatin 100,000 Unit/ml Susp 20 ML,Mag Hydrox/Al Hydro... MT SCH (18:00)
--- NOTE | 2024-12-18 18:42 | NUR ---
PALLIATIVE CARE VISIT: 1800 PRIMARY RN CALLED TO INFORM THIS RN PT WAS REQUESTING VISIT TO DISCUSS HOSPICE. KATHARINE PRESENT ON ARRIVAL. PT KNOWN FROM PRIOR VISITS. AT TIME OF VISIT DR. ZAVALA ALSO CAME IN. DR. ZAVALA REQUESTS PT TO WAIT UNTIL ABX TX IS COMPLETED BEFORE MAKING DECISION TO GO ON HOSPICE. PT IS AGREEABLE TO THIS PLAN OF CARE.
[2024-12-18 19:56] VITALS: BP 124/81
[2024-12-19] VITALS (24 sets, daily range): BP systolic 81–174; BP diastolic 41–89
[2024-12-19 04:11] LABS: BASOPHILS ABSOLUTE AUTO 0.01 K/mm3 (0.00-0.23); BASOPHILS PERCENT AUTO 0 % (0-2); EOSINOPHILS ABSOLUTE AUTO 0.00 K/mm3 (0.00-0.68); EOSINOPHILS PERCENT AUTO 0 % (0-6); Hematocrit 24.1 % (37.0-53.0); Hemoglobin 7.6 g/dL (13.5-17.5); IMMATURE GRAN ABSOLUTE AUTO 0.03 K/mm3 (0.00-0.10); IMMATURE GRAN PERCENT AUTO 1 % (0-1); LYMPHOCYTES ABSOLUTE AUTO 0.38 K/mm3 (0.84-5.20); LYMPHOCYTES PERCENT AUTO 8 % (21-46); MONOCYTES ABSOLUTE AUTO 0.26 K/mm3 (0.16-1.47); MONOCYTES PERCENT AUTO 5 % (4-13); Mean Corpuscular HGB Conc 31.5 g/dL (31.5-36.5); Mean Corpuscular Volume 92 fL (80-100); NEUTROPHILS ABSOLUTE AUTO 4.37 K/mm3 (1.96-9.15); NEUTROPHILS PERCENT AUTO 87 % (41-73); NRBC ABSOLUTE 0.00 K/mm3 (0.00-0.02); NRBC Auto 0.0 /100 WBC (0.0-0.2); Platelet Count 55 K/mm3 (150-400); RDW Coefficient Variation 17.7 % (11.7-14.2); RDW Standard Deviation 59.8 fL (35.1-46.3)
[2024-12-19 04:28] LABS: Albumin, Blood 2.6 g/dL (3.4-5.0); Anion Gap 12 mmol/L (3-11); Blood Urea Nitrogen 76 mg/dL (8-24); CO2, Blood 30 mmol/L (21-32); Calcium, Blood 8.5 mg/dL (8.5-10.1); Chloride, Blood 97 mmol/L (98-108); Creatinine, Blood 5.86 mg/dL (0.60-1.20); Glucose, Blood 239 mg/dL (70-99); Magnesium, Blood 2.3 mg/dL (1.6-2.4); Phosphorus, Blood 5.1 mg/dL (2.5-4.9); Potassium, Blood 4.8 mmol/L (3.5-5.5); Sodium, Blood 134 mmol/L (136-145)
--- NOTE | 2024-12-19 05:15 | NUR ---
SHIFT SUMMARY A&O x4, PLESANT, COOPERATIVE c CARE. SPO2 >97% ON 3L O2 VIA FACE MASK. DESAT ONCE c REPOSITIONING, NC INCREASED TO 5L FOR APPROX 10 MINS. MAP >65, HR NSR 70s. TOLERATING DIET. IND URINAL USE. NO BM OVERNIGHT. 1 PERSON ASSIST, NO AMB THIS SHIFT. PT SLEPT WELL OVERNIGHT. ANTICIPATED HD ON REGULAR M/W/F SCHEDULE TODAY. CALL LIGHT IN REACH, BED IN LOWEST POSITION, WILL REPORT TO DAY RN.
[2024-12-19 08:16] LABS: CYCLOSPORINE A BY HPLC-MS/MS 126.3 ng/mL
--- NOTE | 2024-12-19 15:21 | NUR ---
Spiritual Care Visit. Enoch welcomes my visit, and rapportis re-established quickly as this ep tech has visited this Pt. previously. Pt. is pleasant, and speaks with confidance and is reasonsable. Matters of rohan and ministry are explored. facilitate the sharing of rohan stories. Pt. displayed evidence of genuine rohan and trust in God despite his condition. Prayed with the Pt. Pt. verbalized gratitude for the spiritual care.
--- NOTE | 2024-12-19 18:44 | NUR ---
SHIFT SUMMARY: PT A/OX4, PLEASANT AND COOPERATIVE WITH CARE, ABLE TO COMMUNICATE NEEDS. NSR, SOFT BP'S, MIDODRINE GIVEN DURING AND AFTER DIALYSIS, BP TRENDING UP SINCE, LEFT CEPHALIC PG DOES NOT DRAW, RIGHT CHEST WALL DIALYSIS ACCESS, DENIES CHEST PAIN OR PRESSURE. SPO2>92% ON 3L NC, DENIES SOB. PT SPENT APPROX 3HRS IN DIALYSIS, APPROX 2.2L REMOVED. POOR APPETITE, ATE SOME OATMEAL FOR BKFST, BROUGHT IN ICE CREAM FOR SNACK, ATE A FEW PEACHES FOR DINNER. CALL LIGHT WITHIN REACH, PT EXPRESSES NO FURTHER NEEDS AT THIS TIME.
[2024-12-19] MEDS ORDERED: Protein Supplement 30 ML UD PO SCH (21:00)
[2024-12-20] VITALS (25 sets, daily range): BP systolic 92–177; BP diastolic 63–93
[2024-12-20 04:19] LABS: BASOPHILS ABSOLUTE AUTO 0.01 K/mm3 (0.00-0.23); BASOPHILS PERCENT AUTO 0 % (0-2); EOSINOPHILS ABSOLUTE AUTO 0.00 K/mm3 (0.00-0.68); EOSINOPHILS PERCENT AUTO 0 % (0-6); Hematocrit 25.4 % (37.0-53.0); Hemoglobin 7.9 g/dL (13.5-17.5); IMMATURE GRAN ABSOLUTE AUTO 0.04 K/mm3 (0.00-0.10); IMMATURE GRAN PERCENT AUTO 1 % (0-1); LYMPHOCYTES ABSOLUTE AUTO 0.40 K/mm3 (0.84-5.20); LYMPHOCYTES PERCENT AUTO 7 % (21-46); MONOCYTES ABSOLUTE AUTO 0.27 K/mm3 (0.16-1.47); MONOCYTES PERCENT AUTO 5 % (4-13); Mean Corpuscular HGB Conc 31.1 g/dL (31.5-36.5); Mean Corpuscular Volume 94 fL (80-100); NEUTROPHILS ABSOLUTE AUTO 4.74 K/mm3 (1.96-9.15); NEUTROPHILS PERCENT AUTO 87 % (41-73); NRBC ABSOLUTE 0.00 K/mm3 (0.00-0.02); NRBC Auto 0.0 /100 WBC (0.0-0.2); Platelet Count 59 K/mm3 (150-400); RDW Coefficient Variation 17.8 % (11.7-14.2); RDW Standard Deviation 61.2 fL (35.1-46.3)
[2024-12-20 04:47] LABS: Anion Gap 9.0 mmol/L (3-11); Blood Urea Nitrogen 45.0 mg/dL (8-24); CO2, Blood 32.0 mmol/L (21-32); Calcium, Blood 8.5 mg/dL (8.5-10.1); Chloride, Blood 102.0 mmol/L (98-108); Creatinine, Blood 3.74 mg/dL (0.60-1.20); Glucose, Blood 269.0 mg/dL (70-99); Potassium, Blood 4.7 mmol/L (3.5-5.5); Sodium, Blood 138.0 mmol/L (136-145)
--- NOTE | 2024-12-20 06:15 | NUR ---
SHIFT SUMMARY A/OX4, REMAINS PLEASANT AND COOPERATIVE, ABLE TO MAKE NEEDS KNOWN. VSS T/O NIGHT WITH AEROSAL MASK AT 4-6 L. SOB WITH ANY EXERTION, DESATS EASILY WITH ACTIVITY. CONTINUES TO HAVE MOIST, PRODUCTIVE COUGH WITH THICK YELLOW SPUTUM. HAS MINISTERIO TITUSN AVAIL NEEDED, THO OFTEN USES TISSUES. INCONT OF BOWELS AND BLADDER X 1 THIS AM, CLEANED AND CHANGED ATTENDS/LINENS. WILL UPDATE DAY RN WITH ANY OUTSTANDING ISSUES AND PROBLEMS TO DATE.
[2024-12-20] MEDS ORDERED: Albumin (Human) 25gm/100ml 100 ML IV ONE (08:30)
--- NOTE | 2024-12-20 10:47 | NUR ---
am note this rn assumed care at 0700. vital signs stable. spo2 >90% on 4l nc. tele sinus rhythm. patient is alert and oriented x4. neuro is intact. perrla. patient reports no pain, chest pain/pressure and reports no shortness of breath at rest, but shortness of breath with activity. patient upper lobes clear and lower lobes dim crackles. see shift assessment for further detials. patient down to dialysis at 0900.
--- NOTE | 2024-12-20 17:21 | NUR ---
shift summary patient vital signs remain stable. patient had dialysis today. patient did eat lunch and is eating a pb&j for dinner. no acute changes this shift. plan remains up to date
--- NOTE | 2024-12-20 19:10 | NUR ---
SHIFT TOA- TOA RECEIVED FROM DAY RN @ BEDSIDE,PATIENT IS AWAKE AND ALERT,FOLLOWS ALL COMMANDS,GCS -15,VSS.PATIENT FAMILY @ BEDSIDE.PATIENT IS ON NC 2L AND O2 SAT ABOVE 92%PATIENT BED AT LOWEST POSITION,CALL FORBES WITIN REACH AND USE OF CALL FORBES ACKNOWLEDGED BY PATIENT.
[2024-12-21 03:51] VITALS: BP 157/87
--- NOTE | 2024-12-21 06:28 | NUR ---
SHIFT SUMMARY- PATINET VSS,MOVES ALL EXTREMITIES,ON 2L NC AND O2 SAT ABOVE 92%.PATIENT REPOSITION INDEPENDENTELY.BED AT LOWEST POSITION,CALL FORBES WITHIN IN REACH.PATIENT IS AWAKE,ALERT AND ORIENTED x 4.
[2024-12-21 06:56] LABS: Albumin, Blood 3.1 g/dL (3.4-5.0); Anion Gap 10 mmol/L (3-11); Blood Urea Nitrogen 90 mg/dL (8-24); CO2, Blood 31 mmol/L (21-32); Calcium, Blood 9.0 mg/dL (8.5-10.1); Chloride, Blood 98 mmol/L (98-108); Creatinine, Blood 5.88 mg/dL (0.60-1.20); Glucose, Blood 181 mg/dL (70-99); Phosphorus, Blood 3.2 mg/dL (2.5-4.9); Potassium, Blood 4.9 mmol/L (3.5-5.5); Sodium, Blood 134 mmol/L (136-145)
[2024-12-21 07:00] LABS: BASOPHILS ABSOLUTE AUTO 0.01 K/mm3 (0.00-0.23); BASOPHILS PERCENT AUTO 0 % (0-2); EOSINOPHILS ABSOLUTE AUTO 0.00 K/mm3 (0.00-0.68); EOSINOPHILS PERCENT AUTO 0 % (0-6); Hematocrit 25.3 % (37.0-53.0); Hemoglobin 7.8 g/dL (13.5-17.5); IMMATURE GRAN ABSOLUTE AUTO 0.04 K/mm3 (0.00-0.10); IMMATURE GRAN PERCENT AUTO 1 % (0-1); LYMPHOCYTES ABSOLUTE AUTO 0.39 K/mm3 (0.84-5.20); LYMPHOCYTES PERCENT AUTO 7 % (21-46); MONOCYTES ABSOLUTE AUTO 0.27 K/mm3 (0.16-1.47); MONOCYTES PERCENT AUTO 5 % (4-13); Mean Corpuscular HGB Conc 30.8 g/dL (31.5-36.5); Mean Corpuscular Volume 95 fL (80-100); NEUTROPHILS ABSOLUTE AUTO 4.93 K/mm3 (1.96-9.15); NEUTROPHILS PERCENT AUTO 87 % (41-73); NRBC ABSOLUTE 0.00 K/mm3 (0.00-0.02); NRBC Auto 0.0 /100 WBC (0.0-0.2); Platelet Count 60 K/mm3 (150-400); RDW Coefficient Variation 17.8 % (11.7-14.2); RDW Standard Deviation 61.7 fL (35.1-46.3)
[2024-12-21 07:07] VITALS: BP 136/88
[2024-12-21 08:08] LABS: HEPATITIS B SURFACE ANTIBODY 54.94 IU/L
--- NOTE | 2024-12-21 10:05 | NUR ---
am note this rn assumed care at 0700. vital signs stable. tele sinus rhythm 70s. spo2 >90% on 2l nc. patient is alert and oriented x4. neuro is intact. perrla. patient is able to make needs known and uses call light appropriately. patient denies pain, chest pain/pressure or shortness of breath. patient lung sounds upper lobes clear and lower lobes dim crackles. see shift assessment for further detials. md winchester in to see patient this am and discussed plan. patient stating if continue improvement would like to go to [facility] facility, and if no improvement then would go home on hospice. plan is up to date.
[2024-12-21 10:59] VITALS: BP 119/75
[2024-12-21 12:12] LABS: HEPATITIS A ANTIBODY, IGM Negative (Negative); HEPATITIS C AB CIA INTERP Negative (Negative); HEPATITIS C ANTIBODY CIA INDEX <0.02 IV
[2024-12-21 15:14] VITALS: BP 154/87
--- NOTE | 2024-12-21 15:39 | NUR ---
update this rn came back from lunch and was notifed that patient right eye was bloody in appearence and md johnson was notifed. shortly patient began to describe feeling pressure and bottom and top eyelid starting to swell and turn black and blue. md ernst notifed
--- NOTE | 2024-12-21 15:42 | NUR ---
update md ernst and team in to see the patient.
--- NOTE | 2024-12-21 16:00 | NUR ---
update md ernst spoke with opthamologist and showed picture. opthamologist stated it is spontanous subcutanous hemorrhagic bleed and it will get better within approx 3 weeks[address] md ernst in room and updated family on this.
--- NOTE | 2024-12-21 16:48 | NUR ---
shift summary see previous notes for further detials. vital signs stable. no acute changes.
[2024-12-21] MEDS ORDERED: FentaNYL Citrate 50 MCG/ML 2 ML Injection IV PRN (18:25)
[2024-12-21 19:59] VITALS: BP 132/93
[2024-12-21] MEDS ORDERED: Megestrol Acetate Susp 400MG/10ML UDC PO SCH (21:00)
[2024-12-21 23:53] VITALS: BP 142/85
[2024-12-22] VITALS (22 sets, daily range): BP systolic 77–169; BP diastolic 50–93
[2024-12-22 04:27] LABS: BASOPHILS ABSOLUTE AUTO 0.00 K/mm3 (0.00-0.23); BASOPHILS PERCENT AUTO 0 % (0-2); EOSINOPHILS ABSOLUTE AUTO 0.00 K/mm3 (0.00-0.68); EOSINOPHILS PERCENT AUTO 0 % (0-6); Hematocrit 23.7 % (37.0-53.0); Hemoglobin 7.5 g/dL (13.5-17.5); IMMATURE GRAN ABSOLUTE AUTO 0.03 K/mm3 (0.00-0.10); IMMATURE GRAN PERCENT AUTO 1 % (0-1); LYMPHOCYTES ABSOLUTE AUTO 0.43 K/mm3 (0.84-5.20); LYMPHOCYTES PERCENT AUTO 7 % (21-46); MONOCYTES ABSOLUTE AUTO 0.28 K/mm3 (0.16-1.47); MONOCYTES PERCENT AUTO 5 % (4-13); Mean Corpuscular HGB Conc 31.6 g/dL (31.5-36.5); Mean Corpuscular Volume 94 fL (80-100); NEUTROPHILS ABSOLUTE AUTO 5.08 K/mm3 (1.96-9.15); NEUTROPHILS PERCENT AUTO 87 % (41-73); NRBC ABSOLUTE 0.00 K/mm3 (0.00-0.02); NRBC Auto 0.0 /100 WBC (0.0-0.2); Platelet Count 57 K/mm3 (150-400); RDW Coefficient Variation 17.5 % (11.7-14.2); RDW Standard Deviation 60.7 fL (35.1-46.3)
--- NOTE | 2024-12-22 04:39 | NUR ---
ASSUMED CARE OF PT at 1900. PT IS AXOX4 AND ABLE TO USE CALL LIGHT APPROPRIATELY. RESTING COMFORTABLY IN BED ON 3L NC TO MAINTAIN O2>92%. PT IS ABLE TO COUGH AND CLEAR SOME SECRETIONS. O2 SAT DROPS WITH EXERTION AND REQUIRES ADDITIONAL O2 AT TIMES. ALL OTHER VSS. PT REPORTS PAIN IN THE LEFT EYE RELATED TO RUPTURED BLOOD VESSEL; PRN PAIN MEDICATION ADMINISTERED REQUESTED. BED IN LOWEST POSITION AND CALL LIGHT WITHIN REACH.
[2024-12-22 04:53] LABS: Albumin, Blood 2.8 g/dL (3.4-5.0); Anion Gap 12 mmol/L (3-11); Blood Urea Nitrogen 118 mg/dL (8-24); CO2, Blood 30 mmol/L (21-32); Calcium, Blood 9.0 mg/dL (8.5-10.1); Chloride, Blood 92 mmol/L (98-108); Creatinine, Blood 6.74 mg/dL (0.60-1.20); Glucose, Blood 271 mg/dL (70-99); Phosphorus, Blood 2.9 mg/dL (2.5-4.9); Potassium, Blood 5.2 mmol/L (3.5-5.5); Sodium, Blood 129 mmol/L (136-145)
--- NOTE | 2024-12-22 09:39 | NUR ---
AM NOTE: PATIENT ALERT AND ORIENTED X4. PERRLA WITH LEFT SCLERA AND LEFT ORBIT BRUISING DUE TO BURST BLOOD VESSEL. EYE PATCH IN PLACE. DR. VASQUEZ TO BEDSIDE THIS AM AND VISUALIZED LEFT EYE. MOVING ALL EXTREMITIES. OVERALL WEAK. ABLE TO HELP STAFF WITH CARES AND TURNING IN BED. UP WITH 1-2 PERSON ASSIST TO RECLINER. DENIES PAIN. PATIENT STATES HE IS VERY TIRED THIS MORNING. TELE SHOWING SR WITH HR 60-80'S. DENIES CHEST PAIN/PRESSURE/PALPIATIONS. SCD'S IN PLACE. POWERGLIDE TO LEFT UPPER ARM SALINE LOCKED. DIALYSIS PORT TO RIGHT CHEST. DIALYSIS THIS AM AT 0830. ON 3-6L NASAL CANNULA DEPENDING ON ACTIVITY. LOOSE/MOIST COUGH. PATIENT STATES HE HAS TROUBLE GETTING SPUTUM UP AT TIMES. SUCTION AT BEDSIDE AND PATIENT USING IND. LUNG SOUNDS CLEAR IN BILATERAL UPPER LOBES WITH SCATTERED CRACKLES/COARSENESS IN BILATERAL LOWER LOBES. BOWEL TONES PRESENT. DENIES ABDOMINAL PAIN/NAUSEA. MINIMAL URINE OUTPUT, DIALYSIS PATIENT. ATTENDS IN PLACE. SMALL BROWN SMEAR THIS AM. ACHS BLOOD SUGARS WITH CARB COVERAGE WITH MEALS. SKIN WITH SCATTERED BRUISING. LARGE BRUISE TO ABDOMIN THAT WRAPS AROUND LEFT SIDE. BILATERAL UPPER ARM BRUISING AND LEFT EYE. DR. VASQUEZ AND DR. ARENAS TO BEDSIDE THIS AM. NO NEW ORDERS FOR THIS RN TO PLACE. PATIENT CURRENTLY IN DIALYSIS.
--- NOTE | 2024-12-22 13:12 | NUR ---
PATIENT BACK FROM DIALYSIS. VITAL SIGNS STABLE. TELE CONTINUES TO SHOW SR WITH HR 70-80'S. ON 3L NASAL CANNULA. RESPIRATORY IN FOR BREATHING TREATMENT AT THIS TIME. COMPLAINS OF ORAL PAIN, LIDOCAINE MOUTHWASH GIVEN PER EMAR. PATIENT ATE ONE BITE OF LUNCH. CONTINUES TO BE TIRED. NO CHANGES TO LEFT EYE, CONTINUES TO HAVE MINIMAL BLURRY VISION, DENIES NEED FOR PAIN MEDICATION. EYE PATCH REMAINS IN PLACE FOR COMFORT. PLAN FOR PHYSICAL THERAPY THIS AFTERNOON. CALL LIGHT IN REACH. DENIES NEEDS AT THIS TIME.
--- NOTE | 2024-12-22 17:42 | NUR ---
SHIFT SUMMARY: NO ACUTE CHANGES, SEE PREVIOUS NOTES. PATIENT REMAINS ALERT AND ORIENTED. VITAL SIGNS STABLE. SINUS RHYTHM. ON 3L NASAL CANNULA. UP TO RECLINER POST DIALYSIS AND WORKED WITH PHYSICAL THERAPY. LEFT EYE REMAINS BRUISED AND BLURRED VISION. EYE PATCH IN PLACE FOR COMFORT. AT BEDSIDE THIS AFTERNOON AND UPDATED ON PLAN OF CARE. IV ABX INFUSED. PATIENT RESTING IN BED AT THIS TIME AND DENIES NEEDS. CALL LIGHT IN REACH.
[2024-12-23 04:13] VITALS: BP 137/87
[2024-12-23 05:39] LABS: BASOPHILS ABSOLUTE AUTO 0.00 K/mm3 (0.00-0.23); BASOPHILS PERCENT AUTO 0 % (0-2); EOSINOPHILS ABSOLUTE AUTO 0.00 K/mm3 (0.00-0.68); EOSINOPHILS PERCENT AUTO 0 % (0-6); Hematocrit 24.1 % (37.0-53.0); Hemoglobin 7.5 g/dL (13.5-17.5); IMMATURE GRAN ABSOLUTE AUTO 0.03 K/mm3 (0.00-0.10); IMMATURE GRAN PERCENT AUTO 1 % (0-1); LYMPHOCYTES ABSOLUTE AUTO 0.37 K/mm3 (0.84-5.20); LYMPHOCYTES PERCENT AUTO 7 % (21-46); MONOCYTES ABSOLUTE AUTO 0.24 K/mm3 (0.16-1.47); MONOCYTES PERCENT AUTO 5 % (4-13); Mean Corpuscular HGB Conc 31.1 g/dL (31.5-36.5); Mean Corpuscular Volume 95 fL (80-100); NEUTROPHILS ABSOLUTE AUTO 4.36 K/mm3 (1.96-9.15); NEUTROPHILS PERCENT AUTO 87 % (41-73); NRBC ABSOLUTE 0.00 K/mm3 (0.00-0.02); NRBC Auto 0.0 /100 WBC (0.0-0.2); Platelet Count 54 K/mm3 (150-400); RDW Coefficient Variation 18.1 % (11.7-14.2); RDW Standard Deviation 62.7 fL (35.1-46.3)
--- NOTE | 2024-12-23 05:43 | NUR ---
PT ORIENTED X 4 AND ABLE TO USE CALL LIGHT APPROPRIATELY. ON 3L NC TO MAINTAIN O2 SAT> 92%. PT DOES NEED ADDITIONAL O2 UP TO 6L WITH EXERTION. ALL OTHER VSS. BED IN LOWEST POSITION AND CALL LIGHT WITHIN REACH.
[2024-12-23 05:59] LABS: Albumin, Blood 2.7 g/dL (3.4-5.0); Anion Gap 9 mmol/L (3-11); Blood Urea Nitrogen 74 mg/dL (8-24); CO2, Blood 33 mmol/L (21-32); Calcium, Blood 8.9 mg/dL (8.5-10.1); Chloride, Blood 96 mmol/L (98-108); Creatinine, Blood 4.53 mg/dL (0.60-1.20); Glucose, Blood 251 mg/dL (70-99); Phosphorus, Blood 2.3 mg/dL (2.5-4.9); Potassium, Blood 4.6 mmol/L (3.5-5.5); Sodium, Blood 133 mmol/L (136-145)
[2024-12-23 07:43] VITALS: BP 140/90
--- NOTE | 2024-12-23 09:04 | NUR ---
AM NOTE: PATIENT ALERT AND ORIENTED X4. VOICE SOFT, ABLE TO COMMUNICATE NEEDS. USES CALL LIGHT. UP TO RECLINER THIS AM WITH ONE PERSON ASSIST AND WALKER. PT/OT ORDERS IN PLACE. OT IN ROOM AT THIS TIME. COMPLAINS OF LEFT EYE PAIN, MEDICATED PER EMAR. INTERMIT USE OF EYE PATCH. PATIENT STATES VISION IS STILL BLURRY AND WITHOUT EYE PATCH HIS EYE STARTS TO GET ACHEY. PERRLA. DENIES HEADACHE/NUMBNESS/TINLING. TELE SHOWING SR WITH HR 60-80'S. DENIES CHEST PAIN/PRESSURE/PALPIATIONS. BLOOD PRESSURE READING 140/90 THIS AM. NO EDEMA NOTED. POWERGLIDE SALINE LOCKED. RIGHT CHEST DIALYSIS CATH WITH C/D/I DRESSING. ON 3L NASAL CANNULA AT REST, NEEDING 6L WITH ACTIVITY. PATIENT DESATS WITH ACTIVITY AND COUGHING. MOIST/LOOSE COUGH WITH BOJORQUEZ/WHITE SPUTUM USING SUCTION IND. LUNG SOUNDS CLEAR IN BILATERAL UPPER LOBES AND DIMINSIHED IN BILATERAL LOWER LOBES. BOWEL TONES PRESENT. TOLERATING PO DIET. POOR APPEATITE AND MINIMAL PO INTAKE. PATIENT ATE ABOUT HALF HIS OATMEAL THIS MORNING AND 120ML OF APPLEJUICE. DENIES ABDOMINAL PAIN/NAUSEA. ATTENDS IN PLACE. USING URINAL IND. MINIMAL URINE OUTPUT, DIALYSIS PATIENT. LARGE AMOUNT OF BRUISING TO ABDOMIN, BILATERAL ARMS AND LEFT EYE. RED/EXCORIATED BUTTOCK. Q2 TURNING AND NEEDED. CALL LIGHT IN REACH. DENIES NEEDS AT THIS TIME.
--- NOTE | 2024-12-23 10:00 | NUR ---
DR. ARENAS IN TO SEE PATIENT, THIS RN AT BEDSIDE FOR MD ROUNDS. NO NEW ORDERS FOR THIS RN TO PLACE. PATIENT RESTING IN RECLINER AT THIS TIME. DENIES NEEDS.
[2024-12-23 11:38] VITALS: BP 106/72
[2024-12-23 15:53] VITALS: BP 126/79
[2024-12-23 18:01] VITALS: BP 133/8; BP 133/80
--- NOTE | 2024-12-23 18:16 | NUR ---
SHIFT SUMMARY: PATIENT REMAINS ALERT AND ORIENTED. LEFT EYE PATCH IN PLACE FOR PATIENT COMFORT. ON 3L NASAL CANNULA AT REST, NEEDING 6L WITH ACTIVITY. OCCUPATIONAL THERAPY SESSION THIS AM. UP TO RECLINER FOR MOST OF SHIFT. BED BATH COMPLETED. TELE SHOWING SINUS RHYTHM 60-80'S. TOLERATING PO DIET. INCREASED APPEATITE THIS EVENING EATING HALF OF HIS DINNER AND REQUESTING A PROTEIN DRINK AFTER. MEDICATED X1 FOR LEFT EYE PAIN THIS SHIFT. DENIES NEEDS AT THIS TIME. CALL LIGHT IN REACH, PATIENT IN BED LISTENING TO MUSIC.
[2024-12-23 20:48] VITALS: BP 121/78
[2024-12-24] VITALS (25 sets, daily range): BP systolic 81–158; BP diastolic 43–99
--- NOTE | 2024-12-24 05:57 | NUR ---
SHIFT SUMMARY PT IS A&O X4, ABLE TO MAKE NEEDS KNOWN, MOVING ALL EXTREMITIES WITH PURPOSE, OBEYS COMMANDS, REPOSITIONING WITH ASSISTANCE BY MEDICAL STAFF, LEFT EYE RED/EYE PATCH ON FOR PT COMFORT/ PERRLA PRESENT, CALLS APPROPRIATELY. CONTINUOUS SPO2, SPO2 GREATER THAN 90% ON 3L O2 VIA NC, NO SIGNS OF RESPIRATORY DISTRESS NOTED, LUNGS SOUND CLEAR WITH DIMINISHED BASES CONTINUOUS TELE MONITORING, SINUS 60-70 S, BP STABLE WITH MAP GREATER THAN 65, PULSES PRESENT T/O, DENIES CHEST P/P T/O THIS SHIFT. BOWEL TONES PRESENT IN ALL 4Q, PT DENIES FEELINGS OF NAUSEA OR CONSTIPATION. BED LOWEST POSITION, CALL LIGHT IN REACH, AWAITING TO GIVE REPORT TO ONCOMING RN.
--- NOTE | 2024-12-24 09:15 | NUR ---
AM NOTE: PATIENT ALERT AND ORIENTED X4. WEAK AND SLOW TO MOVE, BUT ABLE TO HELP STAFF WITH TURNS AND CARE. LEFT EYE PATCH IN PLACE FOR COMFORT. SCLERA AND SURROUNDING ORBIT REMAIN BRUISED. PATIENT STATES BLURRY VISION HAS IMPROVED. COMPLAINS OF MOUTH SORE PAIN THIS AM, MEDICATED PER EMAR. TELE SHOWING SINUS RHYTHM WITH HR 60-80'S. DENIES CHEST PAIN/PRESSURE/PALPITATIONS. PPP. BRUISING TO ABDOMIN AND SCATTERED TO ARMS. POWERGLIDE SALINE LOCKED. NO EDEMA NOTED. SCD'S IN PLACE. RIGHT CHEST DIALYSIS PORT WITH C/D/I DRESSING. PATIENT AT DIALYSIS THIS AM. ON 3L NASAL CANNULA AT REST. NEEDING 6-8L WITH ANY MOVEMENT OR LOTS OF TALKING. PATIENT TIRES EASILY AND BECOMES SHORT OF BREATH QUICKLY. MOIST/LOOSE COUGH. SUCTION AT BEDSIDE AND PT USING SUCTION IND. BOWEL TONES PRESENT. POOR APPEATITE AND MOUTH SORES MAKING IT HARD FOR PATIENT TO EAT. ATTENDS IN PLACE. PATIENT STILL MAKES MINIMAL URINE, USING URINAL IND. SKIN WITH SCATTERED BRUISING AND EXCORIATION TO COCCYX. Q2 TURNING AND NEEDED. PATIENT MOTIVATED TO GET UP TO RECLINER FOR MEALS. PT/OT ORDERS IN PLACE.
[2024-12-24] MEDS ORDERED: Formoterol/Mometasone MDI 5/100 mcg 13 GM INH SCH (09:50)
--- NOTE | 2024-12-24 10:21 | NUR ---
PATIENT NOT FEELING WELL IN DIALYSIS. ON 3L NASAL CANNULA, SPO2 CHECKED AND PATIENT SATING IN HIGH 70'S. OXYGEN TURNED UP TO 6L AND HIGH FLOW NASAL CANNULA PLACED. PATIENT SATING 91-94% AND FEELING BETTER. VITAL SIGNS STABLE. BLOOD SUGAR STABLE. DR. SAMSON AND DR. ARENAS UPDATED. BOTH MD'S TO BEDSIDE TO ROUND AND THIS RN PRESENT. NO NEW ORDERS FOR THIS RN TO PLACE. PATIENT IN DIALYSIS STILL.
--- NOTE | 2024-12-24 13:16 | NUR ---
PATIENT BACK TO ROOM FROM DIALYSIS AT 1145. MORNING MEDS GIVEN LATE DUE TO PATIENT NOT FEELING WELL DURING DIALYSIS. VERY TIRED AND JUST WANTING TO SLEEP THIS AFTERNOON. PATIENT HAVING A HARD TIME MAINTAINING SATURATION ON BASELINE 3L NASAL CANNULA. TITRATED UP TO 6L HIGH FLOW NASAL CANNULA AND MAINTAINING SATS. LOOSE/MOIST SOUNDING SECRETION IN UPPER AIRWAY THAT PATIENT IS HAVING A HARD TIME GETTING UP WHEN COUGHING. SUCTION REMAINS AT BEDSIDE. REMAINS SINUS RHYTHM ON TELE. REFUSED BOTH BREAKFAST AND LUNCH TODAY. DR. VASQUEZ TO BEDSIDE POST DIALYSIS AND UPDATED ON PATIENT VITALS, OXYGEN NEEDS AND DISCUSSED OVERALL PLAN OF CARE. PALLIATIVE CARE ON UNIT AND THIS RN PROVIDED PALLIATIVE RN WITH UPDATE.
--- NOTE | 2024-12-24 15:56 | NUR ---
DR. Olivarez TO BEDSIDE, THIS RN PRESENT FOR MD ROUNDING. NO NEW ORDERS FOR THIS RN TO PLACE. DISCUSSED POSSIBILIY OF PATIENT BEING TRANSFERRED TO [facility] [place] VS CURRENT DIALYSIS WITH [facility]. THIS RN PLACED CALL TO [facility] IN CASE MANAGEMENT. PLAN FOR [facility] TO FIND OUT IF PATIENT IS ABLE TO SWITCH OUTPATIENT DIALYSIS FACILITIES.
--- NOTE | 2024-12-24 18:28 | NUR ---
SHIFT SUMMARY: PATIENT ON 6L AT THIS TIME SATING LOW 90'S. TELE SHOWING SINUS RHYTHM. PATIENT FEELING MUCH BETTER THIS EVENING AND ENGAGING IN CARES AND CONVERSATION. VITAL SIGNS STABLE. DENIES PAIN AT THIS TIME. 2 BOWEL MOVEMENTS THIS SHIFT. ATTENDS IN PLACE. Q2 TURNING AND NEEDED. CALL LIGHT IN REACH. DENIES NEEDS AT THIS TIME.
[2024-12-25 00:29] LABS: CYCLOSPORINE A BY HPLC-MS/MS 157.6 ng/mL
[2024-12-25 00:48] VITALS: BP 155/88
[2024-12-25 03:08] VITALS: BP 145/90
[2024-12-25 04:31] LABS: Alanine Aminotransfer (ALT/SGP 19.0 U/L (12-78); Albumin, Blood 2.7 g/dL (3.4-5.0); Albumin/Globulin Ratio 1.1 (0.8-1.8); Anion Gap 8.0 mmol/L (3-11); Aspartate Aminotrans (AST/SGOT 12.0 U/L (12-37); Bilirubin, Total 1.1 mg/dL (0.1-1.0); Blood Urea Nitrogen 60.0 mg/dL (8-24); CO2, Blood 35.0 mmol/L (21-32); Calcium, Blood 8.7 mg/dL (8.5-10.1); Chloride, Blood 93.0 mmol/L (98-108); Creatinine, Blood 3.62 mg/dL (0.60-1.20); Globulin, Blood 2.5 g/dL (2.2-4.0); Glucose, Blood 229.0 mg/dL (70-99); Phosphorus, Blood 2.0 mg/dL (2.5-4.9); Potassium, Blood 4.1 mmol/L (3.5-5.5); Sodium, Blood 132.0 mmol/L (136-145); Total Protein, Blood 5.2 g/dL (6.4-8.2)
--- NOTE | 2024-12-25 05:33 | NUR ---
SHIFT SUMMARY PT IS A&O X4, ABLE TO MAKE NEEDS KNOWN, MOVING ALL EXTREMITIES WITH PURPOSE, OBEYS COMMANDS, REPOSITIONING WITH ASSISTANCE BY MEDICAL STAFF, LEFT EYE RED/EYE PATCH ON FOR PT COMFORT/ PERRLA PRESENT, CALLS APPROPRIATELY. CONTINUOUS SPO2, SPO2 GREATER THAN 90% ON 3L O2 VIA NC/ TITRATED FROM 5L O2 VIA NC AT THE START OF THIS SHIFT/ WITH ACTIVITY PT O2 INCREASED TO 6L O2 VA NC, NO SIGNS OF RESPIRATORY DISTRESS NOTED, MOIST PRODUCTIVE COUGH/ PT REPORTS COUGH BEING WORSE THAN PREVIOUS DAY, PT REPORTS WORK OF BREATHING IS EASIER COMPARED TO PREVIOUS DAY CONTINUOUS TELE MONITORING, SINUS 60-70 S, BP STABLE WITH MAP GREATER THAN 65, PULSES PRESENT T/O, DENIES CHEST P/P T/O THIS SHIFT. BOWEL TONES PRESENT IN ALL 4Q, PT DENIES FEELINGS OF NAUSEA OR CONSTIPATION. VOIDING IND, URINE YELLOW. BED LOWEST POSITION, CALL LIGHT IN REACH, AWAITING TO GIVE REPORT TO ONCOMING RN.
[2024-12-25] MEDS ORDERED: Sodium Phosphate 15 MM in Dextrose 5% 500 ML IV ONE (07:30)
[2024-12-25 08:46] LABS: BASOPHILS ABSOLUTE AUTO 0.01 K/mm3 (0.00-0.23); BASOPHILS PERCENT AUTO 0 % (0-2); EOSINOPHILS ABSOLUTE AUTO 0.00 K/mm3 (0.00-0.68); EOSINOPHILS PERCENT AUTO 0 % (0-6); Hematocrit 25.1 % (37.0-53.0); Hemoglobin 8.0 g/dL (13.5-17.5); IMMATURE GRAN ABSOLUTE AUTO 0.07 K/mm3 (0.00-0.10); IMMATURE GRAN PERCENT AUTO 1 % (0-1); LYMPHOCYTES ABSOLUTE AUTO 0.40 K/mm3 (0.84-5.20); LYMPHOCYTES PERCENT AUTO 7 % (21-46); MONOCYTES ABSOLUTE AUTO 0.23 K/mm3 (0.16-1.47); MONOCYTES PERCENT AUTO 4 % (4-13); Mean Corpuscular HGB Conc 31.9 g/dL (31.5-36.5); Mean Corpuscular Volume 95 fL (80-100); NEUTROPHILS ABSOLUTE AUTO 5.06 K/mm3 (1.96-9.15); NEUTROPHILS PERCENT AUTO 88 % (41-73); NRBC ABSOLUTE 0.00 K/mm3 (0.00-0.02); NRBC Auto 0.0 /100 WBC (0.0-0.2); Platelet Count 61 K/mm3 (150-400); RDW Coefficient Variation 18.5 % (11.7-14.2); RDW Standard Deviation 62.4 fL (35.1-46.3)
[2024-12-25] MEDS ORDERED: Torsemide 20 MG TAB PO SCH (09:00)
[2024-12-25 09:10] VITALS: BP 130/83
[2024-12-25 12:32] VITALS: BP 102/71
[2024-12-25] MEDS ORDERED: MIDO5 PO (13:06)
[2024-12-25] MEDS ORDERED: DULERA 100 MCG/13 GM INH (13:06)
--- NOTE | 2024-12-25 14:36 | NUR ---
SHIFT SUMMARY/ DISCHARGE NOTE: PT A&OX4. FOLLOWS COMMANDS AND MAKES NEEDS KNOWN TO STAFF. DENIES ANY C/O CP, PRESSURE, TIGHTNESS BUT REPORTS SOB WITH EXERTION. PT WAS ABLE TO GET UP TO THE CHAIR WITH PT. REMAINS ON 3-5L NC. NO SIGNIFICNAT EVENTS HAPPENED DURING THIS SHIFT. PT DISCHARGED TO [facility] VIA EMS WHEELCHAIR. BELONGINGS COLLETED BY AND TAKEN WITH PT. POWERGLIDE REMOVED WITH CATHETER INTACT. PT NOT IN ANY DISTRESS ON DISCHARGE. [facility].
--- NOTE | 2024-12-25 14:45 | NUR ---
PATIENT REQUESTED HIS POLST BE UPDATED TO DNR/SELECTIVE TX BEFORE DISCHARGE TO SNF THIS AFTERNOON. AND THIS PC RN REVIEWED DNR VS CPR AND ALL THREE LEVELS OF MEDICAL INTERVENTIONS. PT'S , KATHARINE PRESENT FOR CONVERSATION. POLST COMPLETED PER EDMAR'S REQUEST. ORIGINAL POLST FORM AND TWO COPIES PROVIDED TO SPOUSE WITH INSTRUCTIONS TO PUT ORIGINAL ON THE FRIDGE AT HOME. SHE WILL PROVIDE SNF WITH A COPY ON EDMAR'S ADMISSION. POLST FAXED TO [facility] AND SENT TO MEDICAL RECORDS.
[2024-12-27 07:39] LABS: CYCLOSPORINE A BY HPLC-MS/MS 229.6 ng/mL
== END 2024-12-25 15:00 | DRG 177 ==
LOC: ER 12:26 → ICUE 12:27 → PCU 12-09 13:29 → ICUE 12-09 19:02 → PCU 12-13 21:33
PROVIDERS: Hospitalist; Internal Medicine Critical Care Medicine; Nurse Practitioner Acute Care; Student in an Organized Health Care Education/Training Program; ADMIT Internal Medicine
PROC: 3E033XZ Introduction of Vasopressor into Peripheral Vein, Percutaneous Approach (ICD-10-PCS; 2024-12-08)
PROC: 30233J1 Transfusion of Nonautologous Serum Albumin into Peripheral Vein, Percutaneous Approach (ICD-10-PCS; 2024-12-08)
PROC: 3E03329 Introduction of Other Anti-infective into Peripheral Vein, Percutaneous Approach (ICD-10-PCS; 2024-12-09)
PROC: 5A0945A Assistance with Respiratory Ventilation, 24-96 Consecutive Hours, High Flow/Velocity Cannula (ICD-10-PCS; 2024-12-09)
PROC: 30233N1 Transfusion of Nonautologous Red Blood Cells into Peripheral Vein, Percutaneous Approach (ICD-10-PCS; principal; 2024-12-11)
DX: J15.1 Pneumonia due to Pseudomonas (principal); J96.21 Acute and chronic respiratory failure with hypoxia; N18.6 End stage renal disease; J96.22 Acute and chronic respiratory failure with hypercapnia; J84.116 Cryptogenic organizing pneumonia; I12.0 Hypertensive chronic kidney disease with stage 5 chronic kidney disease or end stage renal disease; K86.1 Other chronic pancreatitis; J84.9 Interstitial pulmonary disease, unspecified; E87.1 Hypo-osmolality and hyponatremia; Z94.0 Kidney transplant status; Z94.4 Liver transplant status; Z66 Do not resuscitate; Z99.2 Dependence on renal dialysis; E11.65 Type 2 diabetes mellitus with hyperglycemia; R54 Age-related physical debility; I95.9 Hypotension, unspecified; H11.31 Conjunctival hemorrhage, right eye; E11.22 Type 2 diabetes mellitus with diabetic chronic kidney disease; K21.9 Gastro-esophageal reflux disease without esophagitis; F32.A Depression, unspecified; D69.6 Thrombocytopenia, unspecified; E88.09 Other disorders of plasma-protein metabolism, not elsewhere classified; D63.1 Anemia in chronic kidney disease; M10.9 Gout, unspecified; Z85.05 Personal history of malignant neoplasm of liver; Z87.01 Personal history of pneumonia (recurrent); Z90.49 Acquired absence of other specified parts of digestive tract; Z79.4 Long term (current) use of insulin; Z79.52 Long term (current) use of systemic steroids; Z79.82 Long term (current) use of aspirin; Z79.899 Other long term (current) drug therapy; Z88.8 Allergy status to other drugs, medicaments and biological substances
CPT/HCPCS: 36415; 36430; 71045; 71046; 71260; 80048; 80053; 80069; 80074; 80158; 80202; 82803; 82947; 83735; 83880; 84100; 84145; 84484; 85025; 85027; 86850; 86900; 86901; 86923; 87070; 87077; 87186; 87205; 87637; 93005; 93010; 93306; 94640; 94664; 94760; 94762; 96365; 96372; 96375; 97110; 97161; 97165; 97530; 99285-25; A9270; C1751; G0378; J0692; J1644; J1815; J2405; J2916; J2919; J3010; J3373; J7050; J7060; J7502; J7512; J7515; J7517; J7799; P9016; P9047; Q5106; Q9967